=== PATIENT | male | born 1970 | race African-American/Black ===

== ENCOUNTER 2023-01-24 07:19 | Inpatient (IN) | payer OTHER, SELFPAY ==
[2023-01-24] VITALS (29 sets, daily range): BP systolic 113–204; BP diastolic 60–106; PULSE 77–91; RESP 10–20; TEMP 36.3–37; O2SAT 85–100
--- NOTE | ~2023-01-24 | XR_ITS ---
XR chest 1V portable DATE: 01/25/2023 05:39 INDICATION: Shortness of breath TECHNIQUE: Portable upright AP chest on 01/25/2023 at 0515 hours COMPARISON: 01/24/2022 portable AP chest at 0806 hours FINDINGS: Right internal jugular dual-lumen catheter tip is again noted overlying the superior vena c catherine near the cavoatrial junction. Cardiomegaly. There is pulmonary vascular redistribution suggesting mild pulmonary venous hypertensio n. The pulmonary interstitium and minor fissure. Less prominent since 01/24/2023 suggesting interval impr ovement of pulmonary interstitial and subpleural edema. Mild infiltrate or atelectasis is suggested in the lower lung zones, also improved. Prominent osteophytic change at the left glenohumeral joint. Osteopenia. IMPRESSION: Cardiomegaly, pulmonary vascular redistribution suggesting mild congestive change Diminished pulmonary interstitial and subpleural edema and diminished bibasilar infiltrate or atelect asis since 01/24/2023 Reviewed, dictated and finalized at location A. IMPRESSION: Cardiomegaly, pulmonary vascular redistribution suggesting mild con gestive change Diminished pulmonary interstitial and subpleural edema and diminished bibasilar infiltrate or atelectasis since 01/24/2023
--- NOTE | ~2023-01-24 | XR_ITS ---
XR chest 1V portable DATE: 01/24/2023 08:09 INDICATION: Shortness of breath. History of renal failure and diabetes. TECHNIQUE: Portable semiupright AP view on 01/24/2023 at 0806 hours COMPARISON: None FINDINGS: Right lower lobe and superior cavoatrial junction. Cardiomegaly. There is pulmonary vascular congestion. There is prominence of minor fissure consistent with subpleural edema. Saran B-lines are noted. Mild infiltrate or atelectasis in the lower lung zones primarily, greater on the left. Osteopenia. Prominent osteoarthritic change at the left glenohumeral joint. IMPRESSION: Cardiomegaly, congestive heart failure Bilateral pulmonary infiltrates, primarily lower lung zones, left greater than right which may be due to pulmonary edema, pneumonia or atelectasis Reviewed, dictated and finalized at location A.
--- NOTE | 2023-01-24 07:26 | ECG_ITS ---
Measurements Intervals [place] Rate: 82 P: 63 FL: 167 QRS: -33 QRSD: 99 T: 91 QT: 418 QTc: 489 Interpretive Statements SINUS RHYTHM LEFT AXIS DEVIATION [QRS AXIS < -30] NONSPECIFIC T-WAVE ABNORMALITY ABNORMAL ECG ABNORMAL QRS-T ANGLE [QRS-T AXIS DIFFERENCE > 60] NO PREVIOUS ECG AVAILABLE FOR COMPARISON Electronically Signed On 01-24-2023 9:17:46 CDT by Alok Mattson M.D.
[2023-01-24 07:41] LABS: Alveolar/Arterial O2 Gradient 107.3 mmHg; Base Excess ABG 6.6 mEq/l (+/-2.0); Carboxyhemoglobin 1.5 % THb (0-2.0); Fractional Inspired Oxygen 30 %; HCO3 ABG 31.9 mEq/l (22.0-26.0); Methemoglobin ABG 0.2 %THb (0-1.5); Oxygen Content ABG 13.8 %vol (16.0-22.0); PO2 FiO2 Ratio Arterial Blood 1.63 %; Reduced Hemoglobin 19.5 %THb (0-5.0); Total Hemoglobin 12.5 g/dL (12.0-18.0); pH ABG 7.432 (7.350-7.450)
[2023-01-24 07:45] LABS: Device NON-INVASIVE VENT; Modified Allen's Test Pass; Oxygen Saturation ABG 85.3 % (95.0-100.0); Oxyhemoglobin 78.8 % THb (90.0-100.0)
[2023-01-24 07:46] LABS: Non-Invasive Expiratory Pressure 7 CMH2O; Non-Invasive Inspiratory Pressure 14 CMH2O; Non-Invasive Vent Rate 4 /MIN; Site Drawn RIGHT RADIAL
[2023-01-24] MEDS: ALBUTEROL SULFATE NEB 2.5 MG/3 ML INH 5 MG INHALATION (07:53)
[2023-01-24 08:11] LABS: Basophils Absolute Auto 0.1 K/mm3 (0.0-0.1); Basophils Percent Auto 0.7 % (0.2-1.2); Eosinophils Absolute Auto 0.3 K/mm3 (0-0.3); Eosinophils Percent Auto 4.5 % (0-4.4); Hemoglobin 11.5 g/dL (14.0-18.0); Immature Granulocyte Absolute 0.03 K/mm3 (0.00-0.031); Immature Granulocyte Percent A 0.4 % (0-0.5); Lymphocytes Absolute Auto 1.15 K/mm3 (0.9-3.2); Lymphocytes Percent Auto 15.8 % (18.3-44.2); Mean Corpuscular HGB Conc 31.9 g/dl (32-36); Mean Corpuscular Hemoglobin 28.4 pg (26-34); Mean Corpuscular Volume 88.9 fl (80-100); Mean Platelet Volume 11.4 fl (7.4-10.4); Monocytes Absolute Auto 0.5 K/mm3 (0.1-0.6); Monocytes Percent Auto 7.1 % (2.6-8.5); Neutrophils Absolute Auto 5.2 K/mm3 (1.3-6.7); Neutrophils Percent Auto 71.5 % (45.5-73.1); Platelet Count Result 278 k/mm3 (150-375); Red Blood Count 4.05 M/mm3 (4.6-6.20); Red Cell Distribution Width 14.5 % (11.5-14.5); White Blood Count 7.3 K/mm3 (4.5-10.0)
[2023-01-24 08:19] LABS: Influenza A QL RT-PCR Negative (Negative); Influenza B QL RT-PCR Negative (Negative); RSV RNA, RT-PCR Negative (Negative); SARS-CoV-2 RNA PCR Negative (Negative)
--- NOTE | 2023-01-24 08:27 | ED.GENADULT ---
HPI - General Adult General Chief complaint: Shortness of Breath/Dyspnea Stated complaint: dyspnea History of Present Illness HPI narrative: 52-year-old male presented the emergency department for evaluation of worsening shortness of breath that started last night into the morning. Patient does have end-stage renal disease and does get dialysis on Tuesdays and Saturdays. Patient went to dialysis this morning and was transported to the emergency department for worsening shortness of breath. Patient denied any associated chest pain. Upon arrival patient was on 15 L and was transferred to [facility]. Related Data Allergies Allergy/AdvReac Type Severity Reaction Status Date / Time No Known Allergies Allergy Verified 01/24/23 07:35 Review of Systems Review of Systems: All systems reviewed & are unremarkable except as noted in HPI and below Exam Narrative: APPEARANCE: Well appearing, no pain, no distress, well-nourished. HEAD: normocephalic, atraumatic. EYES: PERRLA/EOMI, conjunctivae clear. NOSE: Normal no drainage EARS:TMS clear with good light reflex. THROAT: Pharynx clear, no exudate. NECK: Supple. No adenopathy, no masses. RESPIRATORY: Wheeze bilaterally and rhonchi in lower lobes bilaterally CARDIOVASCULAR: Regular rate and rhythm without murmurs rubs or gallops. ABDOMINAL: Soft, nontender, nondistended, normal bowel sounds MUSCULOSKELETAL: Swelling of the left arm which patient reports as being chronic NEURO: Alert. Cranial nerves II through XII intact. Good gait. Good coordination SKIN: Warm, dry. Normal Color Course Course Emergency Course: 52-year-old male with end-stage renal disease presented to the ED for evaluation of worsening shortness of breath. Patient was placed on BiPAP to help with his work of breathing. Patient was also treated with 5 mg of nebulized albuterol to help with wheeze. Patient was negative for COVID RSV and influenza. While on BiPAP patient states he does feel improved compared to arrival. Patient is afebrile with no leukocytosis. Patient's hemoglobin as similar to his baseline 11.5. Patient does have elevated creatinine of 6.8 with no known baseline. Patient has a potassium of 5.0. Patient follows with Dr. Ann, he is out of town so Dr. Casarez was consulted. Patient is chest x-ray did show pulmonary edema and pneumonia. Patient will be going to dialysis. Patient was started on antibiotics for possible pneumonia. In discussion with the hospitalist was decided to start the patient on Levaquin. Patient was accepted to the IMU by the hospitalist. Prior to going to the floor patient states he does feel improved. Vital Signs Vital signs: Vital Signs Temperature 97.6 F 01/24/23 07:21 Pulse Rate 83 01/24/23 07:21 Respiratory Rate 20 01/24/23 07:21 Blood Pressure 114/60 01/24/23 07:21 Pulse Oximetry 85 L 01/24/23 07:21 Oxygen Delivery Room Air 01/24/23 07:21 Temperature 97.6 F 01/24/23 07:21 Pulse Rate 77 01/24/23 12:00 Respiratory Rate 10 L 01/24/23 12:00 Blood Pressure 118/62 01/24/23 08:54 Pulse Oximetry 100 01/24/23 12:00 Oxygen Delivery BiPAP 01/24/23 12:00 Fraction of Inspired Oxygen 30 01/24/23 07:33 Medical Decision Making Differential Diagnosis Differential Diagnosis: Pulm edema, pneumonia, fluid overload, viral etiology Vital Signs Vital Signs: Vital Signs Temperature 97.6 F 01/24/23 07:21 Pulse Rate 83 01/24/23 07:21 Respiratory Rate 20 01/24/23 07:21 Blood Pressure 114/60 01/24/23 07:21 Pulse Oximetry 85 L 01/24/23 07:21 Oxygen Delivery Room Air 01/24/23 07:21 Temperature 97.6 F 01/24/23 07:21 Pulse Rate 77 01/24/23 12:00 Respiratory Rate 10 L 01/24/23 12:00 Blood Pressure 118/62 01/24/23 08:54 Pulse Oximetry 100 01/24/23 12:00 Oxygen Delivery BiPAP 01/24/23 12:00 Fraction of Inspired Oxygen 30 01/24/23 07:33 Lab Data Lab results reviewed: Yes I reviewed t
[2023-01-24 08:40] LABS: Alanine Aminotransferase 51 U/L (6-50); Albumin Level 4.4 g/dL (3.5-5.1); Alkaline Phosphatase 87 U/L (38-126); Anion Gap 11 mmol/L (8-16); Aspartate Amino Transferase 38 U/L (17-59); Bilirubin,Total 0.8 mg/dL (0.2-1.3); Blood Urea Nitrogen 65 mg/dL (9-20); Calcium 9.4 mg/dL (8.4-10.2); Carbon Dioxide 33 mmol/L (22-30); Chloride 93 mmol/L (98-107); Estimated Glomerular Filt Rate 10; Glucose 52 mg/dL (65-110); Sodium 137 mmol/L (137-145)
[2023-01-24] MEDS: DEXTROSE 10% 1,000 ML 100 ML IV CONT (08:58)
--- NOTE | 2023-01-24 10:52 | PC.NURSE ---
per dialysis nurse, hold on the ABT due to pt is going to take dialysis at any time now.
[2023-01-24 11:18] LABS: Glucose Point of Care 78 mg/dl (65-105)
--- NOTE | 2023-01-24 13:51 | ADMGEN ---
This patient, Clarence Morillo, was admitted to IMU Room 232-01 at 1350, patient in dialysis room 308 at this time. Patient/family oriented to hospital policies and general routines including ID bracelet, bed and alarms, visiting hours, pain management, procedures, bathroom and other care routines, personal items, smoking policy, room service/diet, and visiting hours. Information on how to activate the Rapid Response Team has been discussed. Patient/Family are encouraged to report perceived risks to care and to ask questions if they do not understand what they are told or what they should do.
--- NOTE | 2023-01-24 14:11 | PM.IMHP ---
H&P: HPI History of Present Illness Date/Time: 01/24/23 14:11 Chief Complaint: Shortness of breath Narrative: 52-year-old male presented the emergency department for evaluation of worsening shortness of breath that started last night into the morning.? Patient does have end-stage renal disease and does get dialysis on Tuesdays and Saturdays.?Patient went to dialysis this morning and was transported to the emergency department for worsening shortness of breath.? Patient denied any associated chest pain.? Upon arrival patient was on 15 L and was transferred to [facility]. She received nebulizer treatment. COVID RSV and influenza swab negative. Patient improved with BiPAP. ABG 7.43/49/49/31. On laboratory evaluation showed no leukocytosis. Potassium was 5.0. Chest x-ray showed pulmonary edema and pneumonia. Antibiotics were started for possible pneumonia. Nephrology been consulted for dialysis which will be done today. She was also noted to be hypoglycemic at 52 on presentation. EKG with sinus rhythm and nonspecific ST-T changes. Review of Systems Review of Systems: - CONSTITUTIONAL: Denies weight loss, fever and chills. - HEENT: Denies changes in vision and hearing - RESPIRATORY: Reports sOB and denies cough. - CV: Denies palpitations and CP. - GI: Denies abdominal pain, nausea, vomiting and diarrhea. - : Denies dysuria and urinary frequency. - MSK: Denies myalgia and joint pain. - SKIN: Denies rash and pruritus. - NEUROLOGICAL: Denies headache and syncope. - PSYCHIATRIC: Denies recent changes in mood. Denies anxiety and depression. Meds Home Medications and Allergies Home Medications Medication Instructions Recorded Confirmed Type acetaminophen 325 mg tablet 325 mg PO Q4H PRN Pain (Scale 01/24/23 01/24/23 History Score 1-3) amlodipine 10 mg tablet 10 mg PO DAILY 01/24/23 01/24/23 History apixaban 5 mg tablet (Eliquis) 5 mg PO Q12H 01/24/23 01/24/23 History atorvastatin 20 mg tablet (Lipitor) 20 mg PO DAILY 01/24/23 01/24/23 History calcium acetate(phosphat bind) 667 667 mg PO TID 01/24/23 01/24/23 History mg capsule chlorpromazine 25 mg tablet 25 mg PO TID 01/24/23 01/24/23 History clonidine HCl 0.2 mg tablet 0.2 mg PO TID PRN Hypertension 01/24/23 01/24/23 History clopidogrel 75 mg tablet 75 mg PO DAILY 01/24/23 01/24/23 History diphenhydramine HCl 25 mg tablet 25 mg PO TID 01/24/23 01/24/23 History docusate sodium 100 mg capsule 100 mg PO BID 01/24/23 01/24/23 History doxazosin 2 mg tablet 2 mg PO HS 01/24/23 01/24/23 History hydralazine 50 mg tablet 50 mg PO TID 01/24/23 01/24/23 History hydrocodone 7.5 mg-acetaminophen 1 tablet PO QID 01/24/23 01/24/23 History 325 mg tablet insulin glargine 100 unit/mL 8 unit subcut Q12H 01/24/23 01/24/23 History subcutaneous solution insulin lispro 100 unit/mL 5 unit subcut TIDWM 01/24/23 01/24/23 History subcutaneous solution (Humalog U-100 Insulin) isosorbide dinitrate 20 mg tablet 20 mg PO TID 01/24/23 01/24/23 History labetalol 200 mg tablet 200 mg PO Q12H 01/24/23 01/24/23 History levetiracetam 500 mg tablet 500 mg PO Q12H 01/24/23 01/24/23 History lidocaine 5 % topical patch 1 patch transdermal DAILY PRN Back 01/24/23 01/24/23 History Pain losartan 100 mg tablet 100 mg PO DAILY 01/24/23 01/24/23 History minoxidil 2.5 mg tablet 2.5 mg PO Q12H 01/24/23 01/24/23 History nitroglycerin 0.4 mg sublingual 0.4 mg sublingual Q5MIN PRN Chest 01/24/23 01/24/23 History tablet Pain ondansetron HCl 4 mg tablet 4 mg PO Q6H PRN Nausea And Vomiting 01/24/23 01/24/23 History pantoprazole 40 mg tablet,delayed 40 mg PO DAILY 01/24/23 01/24/23 History release polyethylene glycol 3350 17 17 g PO DAILY PRN Constipation 01/24/23 01/24/23 History gram/dose oral powder (Miralax) Allergies Allergy/AdvReac Type Severity Reaction Status Date / Time No Known Allergies Allergy Verified 01/24/23 07:35 Vital Signs Vital Signs - 24 hr
[2023-01-24 15:49] LABS: Hemoglobin A1C 5.6 % (<5.7)
[2023-01-24] MEDS: CALCIUM ACETATE 667 MG TABLET PO (17:05)
[2023-01-24] MEDS: ISOSORBIDE DINITRATE 20 MG TABLET PO (17:05)
[2023-01-24] MEDS: cloNIDine HCL 0.2 MG TABLET PO (17:05)
[2023-01-24] MEDS: hydrALAZINE HCL 50 MG TABLET PO (17:05)
[2023-01-24] MEDS: DOCUSATE SODIUM 100 MG CAPSULE PO (17:06)
[2023-01-24] MEDS: chlorproMAZINE HCL 25 MG TABLET PO (17:06)
[2023-01-24] MEDS: levoFLOXacin 750 MG/D5W 150 ML 750 MG/150 ML BAG 100 MG IVPB (17:07)
[2023-01-24 18:04] LABS: Hepatitis B Surface Antigen Negative (Negative)
[2023-01-24 18:28] LABS: Hepatitis B Surface Anti Res Indeterminate
[2023-01-24 18:34] LABS: Glucose Point of Care 83 mg/dl (65-105)
[2023-01-24 20:27] LABS: Glucose Point of Care 177 mg/dl (65-105)
[2023-01-24] MEDS: LABETALOL HCL 100 MG TABLET 200 MG PO (20:40)
[2023-01-24] MEDS: APIXABAN 5 MG TABLET PO (20:40)
[2023-01-24] MEDS: DOXAZOSIN MESYLATE 2 MG TABLET PO (20:40)
[2023-01-24] MEDS: levETIRAcetam 500 MG TABLET PO (20:42)
[2023-01-24] MEDS: minoxidiL 2.5 MG TABLET PO (20:42)
[2023-01-25] VITALS (17 sets, daily range): BP systolic 156–201; BP diastolic 65–93; PULSE 72–93; RESP 17–22; TEMP 36.1–36.8; O2SAT 96–100
[2023-01-25 04:35] LABS: Basophils Absolute Auto 0.1 K/mm3 (0.0-0.1); Basophils Percent Auto 0.9 % (0.2-1.2); Eosinophils Absolute Auto 0.2 K/mm3 (0-0.3); Eosinophils Percent Auto 3.8 % (0-4.4); Hemoglobin 11.2 g/dL (14.0-18.0); Immature Granulocyte Absolute 0.01 K/mm3 (0.00-0.031); Immature Granulocyte Percent A 0.2 % (0-0.5); Lymphocytes Absolute Auto 0.99 K/mm3 (0.9-3.2); Lymphocytes Percent Auto 18.1 % (18.3-44.2); Mean Corpuscular HGB Conc 31.1 g/dl (32-36); Mean Platelet Volume 11.1 fl (7.4-10.4); Monocytes Absolute Auto 0.6 K/mm3 (0.1-0.6); Monocytes Percent Auto 10.4 % (2.6-8.5); Neutrophils Absolute Auto 3.6 K/mm3 (1.3-6.7); Neutrophils Percent Auto 66.6 % (45.5-73.1); Platelet Count Result 252 k/mm3 (150-375); Red Cell Distribution Width 14.6 % (11.5-14.5); White Blood Count 5.5 K/mm3 (4.5-10.0)
[2023-01-25 04:59] LABS: Alanine Aminotransferase 39 U/L (6-50); Albumin Level 4.2 g/dL (3.5-5.1); Alkaline Phosphatase 86 U/L (38-126); Anion Gap 9 mmol/L (8-16); Aspartate Amino Transferase 31 U/L (17-59); Bilirubin,Total 0.9 mg/dL (0.2-1.3); Blood Urea Nitrogen 38 mg/dL (9-20); Calcium 9.1 mg/dL (8.4-10.2); Carbon Dioxide 33 mmol/L (22-30); Chloride 91 mmol/L (98-107); Estimated CRCL calculation 15 ml/min; Estimated Glomerular Filt Rate 16; Glucose 221 mg/dL (65-110); Magnesium 2.1 mg/dL (1.6-2.3); Potassium 4.4 mmol/L (3.4-5.0); Sodium 133 mmol/L (137-145)
[2023-01-25 07:45] LABS: Glucose Point of Care 208 mg/dl (65-105)
[2023-01-25] MEDS: CALCIUM ACETATE 667 MG TABLET PO ×3 (07:59→17:25)
[2023-01-25] MEDS: INSULIN ASPART (*BKC) 100 UNITS/ML SUB-Q ×4 (07:59→11:50)
[2023-01-25] MEDS: APIXABAN 5 MG TABLET PO ×2 (08:02→21:09)
[2023-01-25] MEDS: amLODIPine BESYLATE 5 MG TABLET 10 MG PO (08:02)
[2023-01-25] MEDS: PANTOPRAZOLE 40 MG TABLET PO (08:03)
[2023-01-25] MEDS: levETIRAcetam 500 MG TABLET PO ×2 (08:03→21:09)
[2023-01-25] MEDS: ISOSORBIDE DINITRATE 20 MG TABLET PO ×3 (08:04→17:27)
[2023-01-25] MEDS: minoxidiL 2.5 MG TABLET PO ×2 (08:04→21:09)
[2023-01-25] MEDS: hydrALAZINE HCL 50 MG TABLET PO (08:04)
[2023-01-25] MEDS: cloNIDine HCL 0.2 MG TABLET PO ×3 (08:05→17:25)
[2023-01-25] MEDS: CLOPIDOGREL BISULFATE 75 MG TABLET PO (08:05)
[2023-01-25] MEDS: DOCUSATE SODIUM 100 MG CAPSULE PO ×2 (08:05→17:25)
[2023-01-25] MEDS: ATORVASTATIN 20 MG TABLET PO (08:06)
[2023-01-25] MEDS: chlorproMAZINE HCL 25 MG TABLET PO ×3 (08:06→17:25)
[2023-01-25] MEDS: LABETALOL HCL 100 MG TABLET 200 MG PO ×2 (08:07→21:09)
[2023-01-25] MEDS: LOSARTAN POTASSIUM 100 MG TABLET PO (08:07)
--- NOTE | 2023-01-25 09:12 | PM.PNNEP ---
Progress Note: A&P Assessment and Plan (1) End stage renal disease: Code(s): N18.6 - End stage renal disease Status: Acute Assessment and Plan: the patient has end-stage renal disease. Gets dialysis on Tuesdays and Saturdays. He may have gained extra weight since last and this weight was removed yesterday and dialysis. He is feeling better. He probably has some volume overload remaining. Will do a dry ultrafiltration tomorrow to remove extra fluid. His potassium is okay. (2) Hypertension: Code(s): I10 - Essential (primary) hypertension Status: Acute Assessment and Plan: his blood pressure is very high. He is on amlodipine, clonidine, doxazosin, hydralazine, labetalol, losartan, and minoxidil. Will check renin and levels. Will increase minoxidil. He does have hydralazine and clonidine as p.r.n. meds. (3) Diabetes: Code(s): E11.9 - Type 2 diabetes mellitus without complications Status: Acute Assessment and Plan: management per hospitalist (4) Hyperlipidemia: Code(s): E78.5 - Hyperlipidemia, unspecified Status: Acute Assessment and Plan: on atorvastatin (5) Pulmonary edema: Code(s): J81.1 - Chronic pulmonary edema Status: Acute Assessment and Plan: fluid removed yesterday. Will try more fluid tomorrow. (6) Erythropoietin deficiency anemia: Code(s): D63.1 - Anemia in chronic kidney disease Status: Acute Assessment and Plan: Hemoglobin is doing well. He does not need EPO at this point (7) Left arm swelling: Code(s): M79.89 - Other specified soft tissue disorders Status: Acute Assessment and Plan: this is due to a venous constriction involving his dialysis access. This is being evaluated and managed by the Interventional doctors as an outpatient. He says that this is actually better than it had been before the last intervention. Subjective Date/time seen: 01/25/23 09:12 Interval history: Clarence is a very pleasant 52-year-old gentleman who has multiple medical problems including end-stage renal disease on dialysis Tuesdays and Saturdays, hypertension, diabetes, status post left [id number] amputation and right [id number] amputation, tobacco use but quit about 10 days ago, heart attack about 3 years ago with no recurrence, stroke with residual right-sided weakness, hyperlipidemia, GERD, among other issues. The patient went to dialysis on . He says he did pretty well. He did not get all of his fluid off. He says that he used to gain a lot of weight between treatments but lately has been better. Thursday he felt okay and then Thursday, yesterday he woke up short of breath. He went to dialysis because he just thought he needed fluid off. They assessed him in became worried because of the degree of the shortness of breath and so called an ambulance who brought him to [facility]. In the ER he was evaluated and found to have hypoxia requiring oxygen. he also had a BiPAP mask placed. He was able to get dialyzed soon after he got up to the floor. Lots of fluid was removed. He feels better today. he is still on some oxygen and has not required theBiPAP mask Since dialysis. He did not have any chest pain jaw pain or arm pain. Review of Systems Constitutional: Constitutional: Reports no additional constitutional complaints Eyes: Eyes: Reports no additional eye complaints ENT: Reports system reviewed and no additional complaints, except as documented Cardiovascular: Cardiovascular: Reports no additional cardiovascular complaints Respiratory: Respiratory: Reports no additional respiratory complaints Gastrointestinal: Gastrointestinal: Reports no additional gastrointestinal complaints Genitourinary: Genitourinary: Reports no additional male genitourinary complaints Musculoskeletal: Musculoskeletal: Reports
--- NOTE | 2023-01-25 10:09 | PM.IMPN ---
Progress Note: A&P Assessment and Plan (1) Community acquired pneumonia: Code(s): J18.9 - Pneumonia, unspecified organism Status: Acute (2) Pulmonary edema: Code(s): J81.1 - Chronic pulmonary edema Status: Acute (3) Hypoxia: Code(s): R09.02 - Hypoxemia Status: Acute Plan 52-year-old male presented the emergency department for evaluation of worsening shortness of breath that started last night into the morning.? Patient does have end-stage renal disease and does get dialysis on Tuesdays and Saturdays.?Patient went to dialysis this morning and was transported to the emergency department for worsening shortness of breath.? Patient denied any associated chest pain.? Upon arrival patient was on 15 L and was transferred to [facility]. She received nebulizer treatment. COVID RSV and influenza swab negative. Patient improved with BiPAP. ABG 7.43/49/49/31. On laboratory evaluation showed no leukocytosis. Potassium was 5.0. Chest x-ray showed pulmonary edema and pneumonia. Antibiotics were started for possible pneumonia. Nephrology been consulted for dialysis which will be done today. She was also noted to be hypoglycemic at 52 on presentation. EKG with sinus rhythm and nonspecific ST-T changes. 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 Resume home medications DVT prophylaxis with apixaban 01/25/2023: 52-year-old male presented the emergency department for evaluation of worsening shortness of breath that started last night into the morning.? Patient does have end-stage renal disease and does get dialysis on Tuesdays and Saturdays.?Patient went to dialysis this morning and was transported to the emergency department for worsening shortness of breath.? Patient denied any associated chest pain.? Upon arrival patient was on 15 L and was transferred to [facility]. She received nebulizer treatment. COVID RSV and influenza swab negative. Patient improved with BiPAP. ABG 7.43/49/49/31. On laboratory evaluation showed no leukocytosis. Potassium was 5.0. Chest x-ray showed pulmonary edema and pneumonia. Antibiotics were started for possible pneumonia. Nephrology been consulted for dialysis and was dialyzed urgently on 01/24/2023. She was also noted to be hypoglycemic at 52 on presentation. EKG with sinus rhythm and nonspecific ST-T changes. 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 Resume home medications Lantus was on hold. Will resume that today. Still volume overloaded nephrology planning to bleed dialyzed again in a.m.. Hypertension not controlled will place on hydralazine p.r.n. DVT prophylaxis with apixaban Subjective Date/time seen: 01/25/23 10:09 Interval history: Feeling better today. Used BiPAP last night. On oxygen 2 L via nasal cannula. Denies any chest pain. His blood pressure is all Review of Systems Review of Systems: All systems reviewed & are unremarkable except as noted in HPI and below Exam Narrative: APPEARANCE: Well appearing, no pain, no distress, well-nourished. On BiPAP HEAD: normocephalic, atraumatic. EYES: PERRLA/EOMI, conjunctivae clear. NOSE: Normal no drainage NECK: Supple. No adenopathy, no masses. RESPIRATORY: Wheeze bilaterally and rhonchi in lower lobes bilaterally CARDIOVASCULAR: Regular rate and rhythm without murmurs rubs or gallops. ABDOMINAL: Soft, nontender, nondistended, normal bowel sounds MUSCULOSKELETAL: Swelling of the left arm which patient reports as being chronic right AKA left BKA NEURO: Alert. Cranial nerves II through XII intact. Good gait. Good coordination SKIN: Warm, dry. Normal Color Objective Data Vital Signs Vital Signs: Vital Signs - 24 hr 01/24/23 10:29 01/24/23 11:01 01/24/23 12:00 [place]
[2023-01-25] MEDS: INSULIN GLARGINE (*BKC) 100 UNITS/ML 8 UNITS SUB-Q ×2 (11:46→21:07)
[2023-01-25 11:49] LABS: Glucose Point of Care 228 mg/dl (65-105)
[2023-01-25] MEDS: hydrALAZINE HCL 25 MG TABLET 75 MG PO ×2 (13:09→21:09)
[2023-01-25 15:50] LABS: Glucose Point of Care 67 mg/dl (65-105)
[2023-01-25 16:29] LABS: Glucose Point of Care 86 mg/dl (65-105)
--- NOTE | 2023-01-25 18:51 | PC.NURSE ---
This patient, Clarence Morillo, was received from U [facility] on 01/25/23 at 1851. Patient/family oriented to unit policies and routines
[2023-01-25] MEDS: DOXAZOSIN MESYLATE 2 MG TABLET PO (21:10)
[2023-01-25 21:20] LABS: Glucose Point of Care 155 mg/dl (65-105)
[2023-01-26] VITALS (24 sets, daily range): BP systolic 162–205; BP diastolic 74–97; PULSE 76–91; RESP 13–22; TEMP 36–37; O2SAT 93–100
[2023-01-26] MEDS: hydrALAZINE HCL 25 MG TABLET 75 MG PO (06:19)
[2023-01-26 08:16] LABS: Glucose Point of Care 145 mg/dl (65-105)
--- NOTE | 2023-01-26 08:40 | PC.NURSE ---
Pit Operator spoke with dialysis nurse and she wants functional tester typewriters to hold ALL of patients blood pressure medications and diuretic medications this AM.
[2023-01-26] MEDS: chlorproMAZINE HCL 25 MG TABLET PO ×2 (08:45→17:37)
[2023-01-26] MEDS: APIXABAN 5 MG TABLET PO ×2 (08:45→20:20)
[2023-01-26] MEDS: ATORVASTATIN 20 MG TABLET PO (08:45)
[2023-01-26] MEDS: CALCIUM ACETATE 667 MG TABLET PO ×2 (08:45→17:37)
[2023-01-26] MEDS: CLOPIDOGREL BISULFATE 75 MG TABLET PO (08:45)
[2023-01-26] MEDS: levETIRAcetam 500 MG TABLET PO ×2 (08:46→20:20)
[2023-01-26] MEDS: PANTOPRAZOLE 40 MG TABLET PO (08:46)
[2023-01-26] MEDS: DOCUSATE SODIUM 100 MG CAPSULE PO ×2 (08:47→17:37)
[2023-01-26] MEDS: INSULIN ASPART (*BKC) 100 UNITS/ML SUB-Q ×2 (08:49→17:38)
[2023-01-26] MEDS: INSULIN GLARGINE (*BKC) 100 UNITS/ML 8 UNITS SUB-Q ×2 (08:51→20:24)
--- NOTE | 2023-01-26 09:10 | PC.NURSE ---
Patient off of unit to dialysis
[2023-01-26 10:31] LABS: Basophils Absolute Auto 0.1 K/mm3 (0.0-0.1); Basophils Percent Auto 0.8 % (0.2-1.2); Eosinophils Absolute Auto 0.3 K/mm3 (0-0.3); Eosinophils Percent Auto 4.4 % (0-4.4); Hematocrit 32.9 % (42.0-52.0); Hemoglobin 10.5 g/dL (14.0-18.0); Immature Granulocyte Absolute 0.01 K/mm3 (0.00-0.031); Immature Granulocyte Percent A 0.2 % (0-0.5); Lymphocytes Absolute Auto 1.07 K/mm3 (0.9-3.2); Lymphocytes Percent Auto 17.3 % (18.3-44.2); Mean Corpuscular HGB Conc 31.9 g/dl (32-36); Mean Corpuscular Hemoglobin 28.7 pg (26-34); Mean Corpuscular Volume 89.9 fl (80-100); Mean Platelet Volume 11.1 fl (7.4-10.4); Monocytes Absolute Auto 0.7 K/mm3 (0.1-0.6); Monocytes Percent Auto 10.5 % (2.6-8.5); Neutrophils Absolute Auto 4.1 K/mm3 (1.3-6.7); Neutrophils Percent Auto 66.8 % (45.5-73.1); Platelet Count Result 261 k/mm3 (150-375); Red Blood Count 3.66 M/mm3 (4.6-6.20); Red Cell Distribution Width 14.8 % (11.5-14.5); White Blood Count 6.2 K/mm3 (4.5-10.0)
[2023-01-26 10:51] LABS: Alanine Aminotransferase 30 U/L (6-50); Albumin Level 3.9 g/dL (3.5-5.1); Alkaline Phosphatase 77 U/L (38-126); Anion Gap 10 mmol/L (8-16); Aspartate Amino Transferase 25 U/L (17-59); Bilirubin,Total 0.7 mg/dL (0.2-1.3); Blood Urea Nitrogen 55 mg/dL (9-20); Calcium 8.9 mg/dL (8.4-10.2); Carbon Dioxide 33 mmol/L (22-30); Chloride 91 mmol/L (98-107); Estimated CRCL calculation 10 ml/min; Estimated Glomerular Filt Rate 10; Glucose 145 mg/dL (65-110); Magnesium 2.1 mg/dL (1.6-2.3); Phosphorus 6.8 mg/dL (2.5-4.5); Potassium 4.3 mmol/L (3.4-5.0); Sodium 134 mmol/L (137-145)
--- NOTE | 2023-01-26 12:29 | PM.PNNEP ---
Progress Note: A&P Assessment and Plan (1) End stage renal disease: Code(s): N18.6 - End stage renal disease Status: Acute Assessment and Plan: the patient has end-stage renal disease. Gets dialysis on Tuesdays and Saturdays. He still has high blood pressure. Last chest x-ray still showed some fluid. He probably has some volume overload remaining. He is scheduled for ultrafiltration today and will do his regular dialysis tomorrow His potassium is okay. (2) Hypertension: Code(s): I10 - Essential (primary) hypertension Status: Acute Assessment and Plan: his blood pressure is very high. He is on amlodipine, clonidine, doxazosin, hydralazine, labetalol, losartan, and minoxidil. Will check renin and levels. Will increase minoxidil to 5 mg b.i.d.. He does have hydralazine and clonidine as p.r.n. meds. (3) Diabetes: Code(s): E11.9 - Type 2 diabetes mellitus without complications Status: Acute Assessment and Plan: management per hospitalist (4) Hyperlipidemia: Code(s): E78.5 - Hyperlipidemia, unspecified Status: Acute Assessment and Plan: on atorvastatin (5) Pulmonary edema: Code(s): J81.1 - Chronic pulmonary edema Status: Acute Assessment and Plan: fluid removed yesterday. Will try more fluid tomorrow. (6) Erythropoietin deficiency anemia: Code(s): D63.1 - Anemia in chronic kidney disease Status: Acute Assessment and Plan: Hemoglobin is doing well. He does not need EPO at this point (7) Left arm swelling: Code(s): M79.89 - Other specified soft tissue disorders Status: Acute Assessment and Plan: this is due to a venous constriction involving his dialysis access. This is being evaluated and managed by the Interventional doctors as an outpatient. He says that this is actually better than it had been before the last intervention. Subjective Date/time seen: 01/26/23 12:29 Interval history: Clarence is feeling a little better today. He still has very high blood pressure. He is still on some oxygen Review of Systems Constitutional: Constitutional: Reports no additional constitutional complaints Cardiovascular: Cardiovascular: Reports no additional cardiovascular complaints Respiratory: Respiratory: Reports no additional respiratory complaints Gastrointestinal: Gastrointestinal: Reports no additional gastrointestinal complaints Genitourinary: Genitourinary: Reports no additional male genitourinary complaints Exam Narrative: WDWN in NAD skin no rash head ncat lungs clear cor reg no rub abd BS+ nontender and soft ext no edema. he has a left below the knee amputation and a right [id number] amputation. Objective Data Vital Signs Vital Signs: Vital Signs - 24 hr 01/25/23 12:32 01/25/23 15:55 01/25/23 14:00 Temperature 97.4 F L 96.9 F L Pulse Rate 91 86 80 Respiratory Rate 22 H 20 Blood Pressure 167/67 H 174/76 H Pulse Oximetry 100 99 Oxygen Delivery Oxygen Flow Rate Fraction of Inspired Oxygen 01/25/23 16:00 01/25/23 20:00 01/25/23 21:09 Temperature 98.3 F Pulse Rate 85 86 80 Respiratory Rate 20 Blood Pressure 156/65 H Pulse Oximetry 100 Oxygen Delivery Oxygen Flow Rate Fraction of Inspired Oxygen 01/25/23 20:00 01/25/23 20:00 01/26/23 00:00 Temperature Pulse Rate 83 80 85 Respiratory Rate 20 Blood Pressure Pulse Oximetry 100 Oxygen Delivery Nasal Cannula Oxygen Flow Rate 1.5 Fraction of Inspired Oxygen 26 01/25/23 23:00 01/26/23 01:44 01/26/23 04:00 Temperature Pulse Rate 72 76 83 Respiratory Rate 17 13 Blood Pressure Pulse Oximetry 99 99 Oxygen Delivery BiPAP BiPAP Oxygen Flow Rate Fraction of Inspired Oxygen 01/26/23 06:00 01/26/23 08:45 01/26/23 09:46 Temperature 97.7 F 98.6 F Pulse Rate 84 86 Respiratory
[2023-01-26 17:22] LABS: Glucose Point of Care 154 mg/dl (65-105)
[2023-01-26] MEDS: ISOSORBIDE DINITRATE 20 MG TABLET PO (17:37)
[2023-01-26] MEDS: cloNIDine HCL 0.2 MG TABLET PO (17:37)
[2023-01-26] MEDS: levoFLOXacin 500 MG/D5W 100 ML 500 MG/100 ML BAG 66.67 MG IVPB (17:45)
[2023-01-26 20:20] LABS: Glucose Point of Care 220 mg/dl (65-105)
[2023-01-26] MEDS: DOXAZOSIN MESYLATE 2 MG TABLET PO (20:20)
[2023-01-26] MEDS: minoxidiL 2.5 MG TABLET 5 MG PO (20:20)
[2023-01-26] MEDS: LABETALOL HCL 100 MG TABLET 200 MG PO (20:20)
[2023-01-26] MEDS: hydrALAZINE HCL 50 MG TABLET 100 MG PO (20:20)
[2023-01-27] VITALS (25 sets, daily range): BP systolic 105–205; BP diastolic 54–98; PULSE 82–97; RESP 16–22; TEMP 36–36.9; O2SAT 90–100
[2023-01-27 03:37] LABS: Glucose Point of Care 57 mg/dl (65-105)
[2023-01-27 03:37] LABS: Glucose Point of Care 132 mg/dl (65-105)
[2023-01-27] MEDS: hydrALAZINE HCL 50 MG TABLET 100 MG PO ×3 (05:11→20:47)
[2023-01-27 08:24] LABS: Glucose Point of Care 60 mg/dl (65-105)
[2023-01-27] MEDS: APIXABAN 5 MG TABLET PO ×2 (08:43→20:46)
[2023-01-27] MEDS: cloNIDine HCL 0.2 MG TABLET PO ×2 (08:43→17:58)
[2023-01-27] MEDS: CALCIUM ACETATE 667 MG TABLET PO ×2 (08:43→17:58)
[2023-01-27] MEDS: LABETALOL HCL 100 MG TABLET 200 MG PO ×2 (08:43→20:46)
[2023-01-27] MEDS: CLOPIDOGREL BISULFATE 75 MG TABLET PO (08:43)
[2023-01-27] MEDS: ISOSORBIDE DINITRATE 20 MG TABLET PO ×2 (08:43→17:58)
[2023-01-27] MEDS: amLODIPine BESYLATE 5 MG TABLET 10 MG PO (08:43)
[2023-01-27] MEDS: ATORVASTATIN 20 MG TABLET PO (08:43)
[2023-01-27] MEDS: chlorproMAZINE HCL 25 MG TABLET PO ×2 (08:43→17:58)
[2023-01-27] MEDS: DOCUSATE SODIUM 100 MG CAPSULE PO ×2 (08:43→17:58)
[2023-01-27] MEDS: PANTOPRAZOLE 40 MG TABLET PO (08:44)
[2023-01-27] MEDS: LOSARTAN POTASSIUM 100 MG TABLET PO (08:44)
[2023-01-27] MEDS: minoxidiL 2.5 MG TABLET 5 MG PO ×2 (08:44→20:47)
[2023-01-27] MEDS: levETIRAcetam 500 MG TABLET PO ×2 (08:44→20:47)
[2023-01-27 09:06] LABS: Glucose Point of Care 111 mg/dl (65-105)
--- NOTE | 2023-01-27 09:13 | PC.NURSE ---
Patient off of unit to dialysis
[2023-01-27 10:07] LABS: Albumin Level 4.2 g/dL (3.5-5.1); Anion Gap 12 mmol/L (8-16); Blood Urea Nitrogen 71 mg/dL (9-20); Calcium 8.4 mg/dL (8.4-10.2); Carbon Dioxide 30 mmol/L (22-30); Chloride 90 mmol/L (98-107); Glucose 119 mg/dL (65-110); Phosphorus 7.9 mg/dL (2.5-4.5); Potassium 4.9 mmol/L (3.4-5.0); Sodium 132 mmol/L (137-145)
[2023-01-27 10:12] LABS: Estimated CRCL calculation 9 ml/min; Estimated Glomerular Filt Rate 9
[2023-01-27] MEDS: EPOETIN ALFA-EPBX 10,000 UNITS/ML VIAL 10000 UNITS IV PUSH (10:30)
--- NOTE | 2023-01-27 11:57 | PC.NURSE ---
Department Chairperson gave an update to [facility]
[2023-01-27 13:00] LABS: Glucose Point of Care 118 mg/dl (65-105)
--- NOTE | 2023-01-27 15:59 | WPDPN ---
Progress Note: A&P Assessment and Plan (1) Community acquired pneumonia: Code(s): J18.9 - Pneumonia, unspecified organism Status: Acute (2) Pulmonary edema: Code(s): J81.1 - Chronic pulmonary edema Status: Acute (3) Hypoxia: Code(s): R09.02 - Hypoxemia Status: Acute Plan 52-year-old male presented the emergency department for evaluation of worsening shortness of breath that started last night into the morning.? Patient does have end-stage renal disease and does get dialysis on Tuesdays and Saturdays.?Patient went to dialysis this morning and was transported to the emergency department for worsening shortness of breath.? Patient denied any associated chest pain.? Upon arrival patient was on 15 L and was transferred to [facility]. She received nebulizer treatment. COVID RSV and influenza swab negative. Patient improved with BiPAP. ABG 7.43/49/49/31. On laboratory evaluation showed no leukocytosis. Potassium was 5.0. Chest x-ray showed pulmonary edema and pneumonia. Antibiotics were started for possible pneumonia. Nephrology been consulted for dialysis which will be done today. She was also noted to be hypoglycemic at 53 on presentation. EKG with sinus rhythm and nonspecific ST-T changes. 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 Resume home medications DVT prophylaxis with apixaban 01/25/2023: 52-year-old male presented the emergency department for evaluation of worsening shortness of breath that started last night into the morning.? Patient does have end-stage renal disease and does get dialysis on Tuesdays and Saturdays.?Patient went to dialysis this morning and was transported to the emergency department for worsening shortness of breath.? Patient denied any associated chest pain.? Upon arrival patient was on 15 L and was transferred to [facility]. She received nebulizer treatment. COVID RSV and influenza swab negative. Patient improved with BiPAP. ABG 7.43/49/49/31. On laboratory evaluation showed no leukocytosis. Potassium was 5.0. Chest x-ray showed pulmonary edema and pneumonia. Antibiotics were started for possible pneumonia. Nephrology been consulted for dialysis and was dialyzed urgently on 01/24/2023. She was also noted to be hypoglycemic at 53 on presentation. EKG with sinus rhythm and nonspecific ST-T changes. 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 Resume home medications Lantus was on hold. Will resume that today. Still volume overloaded nephrology planning to bleed dialyzed again in a.m.. Hypertension not controlled will place on hydralazine p.r.n. DVT prophylaxis with apixaban 01/26/2023:52-year-old male presented the emergency department for evaluation of worsening shortness of breath that started last night into the morning.? Patient does have end-stage renal disease and does get dialysis on Tuesdays and Saturdays.?Patient went to dialysis this morning and was transported to the emergency department for worsening shortness of breath.? Patient denied any associated chest pain.? Upon arrival patient was on 15 L and was transferred to [facility]. She received nebulizer treatment. COVID RSV and influenza swab negative. Patient improved with BiPAP. ABG 7.43/49/49/31. On laboratory evaluation showed no leukocytosis. Potassium was 5.0. Chest x-ray showed pulmonary edema and pneumonia. Antibiotics were started for possible pneumonia which will be continued. Nephrology been consulted for dialysis and was dialyzed urgently on 01/24/2023. She was also noted to be hypoglycemic at 53 on presentation. EKG with sinus rhythm and nonspecific ST-T changes. Hypertension/hyperlipidemia/diabetes/seizure disorder/chronic anticoagulation/peripheral vascular di
[2023-01-27] MEDS: INSULIN ASPART (*BKC) 100 UNITS/ML SUB-Q ×2 (17:59)
--- NOTE | 2023-01-27 18:08 | PM.PNNEP ---
Progress Note: A&P Assessment and Plan (1) End stage renal disease: Code(s): N18.6 - End stage renal disease Status: Acute Assessment and Plan: the patient has end-stage renal disease. Gets dialysis on Tuesdays and Saturdays. blood pressure was better earlier today but was high again this afternoon. He had 3L removed today. His potassium is okay. (2) Hypertension: Code(s): I10 - Essential (primary) hypertension Status: Acute Assessment and Plan: his blood pressure is very high. He is on amlodipine, clonidine, doxazosin, hydralazine, labetalol, losartan, and minoxidil 5 b.i.d.. renin and levels are pending. (3) Diabetes: Code(s): E11.9 - Type 2 diabetes mellitus without complications Status: Acute Assessment and Plan: management per hospitalist (4) Hyperlipidemia: Code(s): E78.5 - Hyperlipidemia, unspecified Status: Acute Assessment and Plan: on atorvastatin (5) Pulmonary edema: Code(s): J81.1 - Chronic pulmonary edema Status: Acute Assessment and Plan: fluid removed yesterday. Will try more fluid tomorrow. (6) Erythropoietin deficiency anemia: Code(s): D63.1 - Anemia in chronic kidney disease Status: Acute Assessment and Plan: Hemoglobin is doing well. He does not need EPO at this point (7) Left arm swelling: Code(s): M79.89 - Other specified soft tissue disorders Status: Acute Assessment and Plan: this is due to a venous constriction involving his dialysis access. This is being evaluated and managed by the Interventional doctors as an outpatient. He says that this is actually better than it had been before the last intervention. Subjective Date/time seen: 01/27/23 18:08 Interval history: Clarence is feeling better. He had dialysis earlier today. He is breathing fine. He is still on 2L of oxygen. I asked the nurse to see if his O2 sat is okay on room air. Exam Narrative: WDWN in NAD skin no rash head ncat lungs clear Bilaterally cor reg no rub abd BS+ nontender and soft ext no edema. he has a left below the knee amputation and a right [id number] amputation. Objective Data Vital Signs Vital Signs: Vital Signs - 24 hr 01/26/23 19:38 01/26/23 20:20 01/26/23 20:00 Temperature 98.3 F Pulse Rate 89 82 91 Respiratory Rate 18 Blood Pressure 182/89 H Pulse Oximetry 100 Oxygen Delivery Oxygen Flow Rate Fraction of Inspired Oxygen 01/26/23 20:00 01/27/23 00:00 01/27/23 03:57 Temperature 97.9 F Pulse Rate 82 86 84 Respiratory Rate 18 16 Blood Pressure 177/78 H Pulse Oximetry 100 100 Oxygen Delivery Nasal Cannula Oxygen Flow Rate 1.5 Fraction of Inspired Oxygen 26 01/27/23 04:00 01/27/23 08:43 01/27/23 08:40 Temperature Pulse Rate 85 82 Respiratory Rate Blood Pressure 204/98 H Pulse Oximetry Oxygen Delivery Oxygen Flow Rate Fraction of Inspired Oxygen 01/27/23 09:14 01/27/23 09:25 01/27/23 09:25 Temperature 98.0 F Pulse Rate 85 85 Respiratory Rate 22 H Blood Pressure 205/93 H 156/74 H Pulse Oximetry 94 Oxygen Delivery Oxygen Flow Rate 2 Fraction of Inspired Oxygen 01/27/23 09:40 01/27/23 10:00 01/27/23 10:20 Temperature Pulse Rate 85 83 84 Respiratory Rate Blood Pressure 141/62 H 127/54 L 133/59 L Pulse Oximetry Oxygen Delivery Oxygen Flow Rate Fraction of Inspired Oxygen 01/27/23 10:40 01/27/23 11:00 01/27/23 08:40 Temperature Pulse Rate 84 83 Respiratory Rate Blood Pressure 137/55 L 105/55 L Pulse Oximetry 94 Oxygen Delivery Nasal Cannula Oxygen Flow Rate 1.5 Fraction of Inspired Oxygen 01/27/23 11:20 01/27/23 11:40 01/27/23 08:00 Temperature Pulse Rate 84 83 85 Respiratory Rate Blood Pressure 132/72 145/63 H Pulse Oximetry Oxygen De
[2023-01-27] MEDS: DOXAZOSIN MESYLATE 2 MG TABLET PO (20:46)
[2023-01-27] MEDS: INSULIN GLARGINE (*BKC) 100 UNITS/ML 8 UNITS SUB-Q (20:47)
[2023-01-27 21:08] LABS: Glucose Point of Care 195 mg/dl (65-105)
[2023-01-28] VITALS (12 sets, daily range): BP systolic 147–178; BP diastolic 64–71; PULSE 86–97; RESP 16–20; TEMP 36.6–37.2; O2SAT 92–100
[2023-01-28] MEDS: hydrALAZINE HCL 50 MG TABLET 100 MG PO ×3 (05:14→20:37)
[2023-01-28 07:44] LABS: Glucose Point of Care 69 mg/dl (65-105)
[2023-01-28 07:52] LABS: Albumin Level 4.5 g/dL (3.5-5.1); Anion Gap 10 mmol/L (8-16); Blood Urea Nitrogen 52 mg/dL (9-20); Calcium 9.4 mg/dL (8.4-10.2); Carbon Dioxide 32 mmol/L (22-30); Chloride 93 mmol/L (98-107); Estimated CRCL calculation 13 ml/min; Estimated Glomerular Filt Rate 13; Glucose 65 mg/dL (65-110); Phosphorus 6.4 mg/dL (2.5-4.5); Potassium 4.6 mmol/L (3.4-5.0); Sodium 135 mmol/L (137-145)
[2023-01-28] MEDS: minoxidiL 2.5 MG TABLET 5 MG PO ×2 (08:55→20:38)
[2023-01-28] MEDS: ISOSORBIDE DINITRATE 20 MG TABLET PO ×3 (08:56→17:03)
[2023-01-28] MEDS: DOCUSATE SODIUM 100 MG CAPSULE PO ×2 (08:56→17:03)
[2023-01-28] MEDS: cloNIDine HCL 0.2 MG TABLET PO ×3 (08:56→17:03)
[2023-01-28] MEDS: APIXABAN 5 MG TABLET PO ×2 (08:56→20:37)
[2023-01-28] MEDS: CLOPIDOGREL BISULFATE 75 MG TABLET PO (08:56)
[2023-01-28] MEDS: amLODIPine BESYLATE 5 MG TABLET 10 MG PO (08:56)
[2023-01-28] MEDS: CALCIUM ACETATE 667 MG TABLET PO ×3 (08:56→17:03)
[2023-01-28] MEDS: ATORVASTATIN 20 MG TABLET PO (08:56)
[2023-01-28] MEDS: chlorproMAZINE HCL 25 MG TABLET PO ×3 (08:56→17:03)
[2023-01-28] MEDS: LOSARTAN POTASSIUM 100 MG TABLET PO (08:56)
[2023-01-28] MEDS: PANTOPRAZOLE 40 MG TABLET PO (08:56)
[2023-01-28] MEDS: LABETALOL HCL 100 MG TABLET 200 MG PO ×2 (08:56→20:37)
[2023-01-28] MEDS: levETIRAcetam 500 MG TABLET PO ×2 (08:56→20:37)
[2023-01-28] MEDS: INSULIN GLARGINE (*BKC) 100 UNITS/ML 8 UNITS SUB-Q ×2 (09:53→20:39)
--- NOTE | 2023-01-28 11:48 | PCCCNOTE ---
On 01/28/23, the student, [Divine Bolaños], provided care and completed [facility] documentation on this patient. I have reviewed the student's documentation and agree with the findings.
[2023-01-28 11:55] LABS: Glucose Point of Care 191 mg/dl (65-105)
[2023-01-28] MEDS: INSULIN ASPART (*BKC) 100 UNITS/ML SUB-Q (13:33)
--- NOTE | 2023-01-28 14:18 | PM.PNNEP ---
Progress Note: A&P Assessment and Plan (1) End stage renal disease: Code(s): N18.6 - End stage renal disease Status: Chronic Assessment and Plan: HD tomorrow continue dialysis schedule of T/T/S follow electrolytes, volume status, and clearance (2) Hypoxia: Code(s): R09.02 - Hypoxemia Status: Acute Assessment and Plan: felt to be secondary to pulmonary edema possible pneumonia contributing as well continue fluid removal as tolerated follow oxygen saturations (3) Hypertension: Qualifiers: Hypertension type: primary hypertension Qualified Code(s): I10 - Essential (primary) hypertension Code(s): I10 - Essential (primary) hypertension Status: Acute Assessment and Plan: quite elevated on presenation doing better at this time on multiple medications (amlodpine, clonidine, doxazosin, hydralazine, losartan, and minoxidil) hopefully, ongoing fluid removal will help as well follow trend of hemodynamics (4) Left arm swelling: Code(s): M79.89 - Other specified soft tissue disorders Status: Chronic Assessment and Plan: chronic issues reportedly due to venous stenosis with his AV access ongoing management per Interventional Radiology as an outpatient continue supportive therapy (5) Anemia: Code(s): D64.9 - Anemia, unspecified Status: Chronic Assessment and Plan: due to ESRD Epogen with HD follow trend of H/H (6) Diabetes: Code(s): E11.9 - Type 2 diabetes mellitus without complications Status: Acute Assessment and Plan: follow accu-cheks glycemic control per hospitalists Will continue to follow. Subjective Date/time seen: 01/28/23 14:18 Interval history: Follow-up for end stage renal disease on hemodialysis. Chart reviewed -- assuming care from Dr. Casarez; tolerated dialysis yesterday and day before without any issue or problems; reports improvement in breathing/respiratory status; no apparent distress noted. Exam Narrative: General: WD/WN male in NAD Heart: normal S1 and S2; no rub Lungs: clear anteriorly; decreased at bases Abdomen: soft, nontender, nondistended, positive bowel sounds Extremities: no cyanosis or clubbing; no edema; s/p L BKA and R AKA Skin: warm and dry Objective Data Vital Signs Vital Signs: Vital Signs Temp Pulse Resp BP Pulse Ox O2 Del Method 01/28/23 14:00 88 01/28/23 12:00 86 01/28/23 08:00 89 01/28/23 14:04 97.9 F 95 16 166/64 H 92 01/28/23 08:00 Room Air 01/28/23 08:56 97 01/28/23 04:23 98.9 F 90 20 178/71 H 100 01/28/23 04:00 92 01/28/23 00:00 94 01/27/23 20:00 97 01/27/23 20:46 94 01/27/23 20:23 98.5 F 94 18 171/66 H 95 Intake/Output Intake/Output: Intake & Output 01/25/23 01/26/23 01/27/23 01/28/23 23:59 23:59 23:59 23:59 Intake Total 870 1204 1322 1620 Output Total 3000 1500 Balance 870 -1796 -178 1620 Meds/Results Medications: Active Medications Generic Name Dose Route Start Last Admin Trade Name Freq PRN Reason Stop Dose Admin Acetaminophen 325 mg 01/24/23 14:34 Acetaminophen 325 Mg Tablet PO Q4H PRN Pain (Scale Score 1-3) Hydrocodone Bitart/Acetaminophen 1 tab 01/24/23 15:38 Hydrocodone/Acetaminophen (*Crx) 7.5-325 Mg Tablet PO QID PRN Pain Rated 7-10 Amlodipine Besylate 10 mg 01/25/23 09:00 01/28/23 08:56 Amlodipine Besylate 5 Mg Tablet PO 10 mg DAILY AZALEA Administration Apixaban 5 mg 01/24/23 21:00 01/28/23 08:56 Apixaban 5 Mg Tablet PO 5 mg Q12HR AZALEA Administration Atorvastatin Calcium 20 mg 01/25/23 09:00 01/28/23 08:56 Atorvastatin 20 Mg Tablet PO 20 mg DAILY AZALEA Administration Calcium Acetate 667 mg 01/24/23 17:00 01/28/23 17:03 Calcium Acetate 667 Mg Tablet PO 667 mg TIDWM AZALEA Administration Chlor
--- NOTE | 2023-01-28 14:18 | P.PNNP_ITS ---
Progress Note: A&P Assessment and Plan (1) End stage renal disease: Code(s): N18.6 - End stage renal disease Status: Chronic Assessment and Plan: * HD tomorrow * continue dialysis schedule of T/T/S * follow electrolytes, volume status, and clearance (2) Hypoxia: Code(s): R09.02 - Hypoxemia Status: Acute Assessment and Plan: * felt to be secondary to pulmonary edema * possible pneumonia contributing as well * continue fluid removal as tolerated * follow oxygen saturations (3) Hypertension: Qualifiers: Hypertension type: primary hypertension Qualified Code(s): I10 - Essential (primary) hypertension Code(s): I10 - Essential (primary) hypertension Status: Acute Assessment and Plan: * quite elevated on presenation * doing better at this time * on multiple medications (amlodpine, clonidine, doxazosin, hydralazine, losartan, and minoxidil) * hopefully, ongoing fluid removal will help as well * follow trend of hemodynamics (4) Left arm swelling: Code(s): M79.89 - Other specified soft tissue disorders Status: Chronic Assessment and Plan: * chronic issues * reportedly due to venous stenosis with his AV access * ongoing management per Interventional Radiology as an outpatient * continue supportive therapy (5) Anemia: Code(s): D64.9 - Anemia, unspecified Status: Chronic Assessment and Plan: * due to ESRD * Epogen with HD * follow trend of H/H (6) Diabetes: Code(s): E11.9 - Type 2 diabetes mellitus without complications Status: Acute Assessment and Plan: * follow accu-cheks * glycemic control per hospitalists Will continue to follow. Subjective Date/time seen: 01/28/23 14:18 Interval history: Follow-up for end stage renal disease on hemodialysis. Chart reviewed -- assuming care from Dr. Casarez; tolerated dialysis yesterday and day before without any issue or problems; reports improvement in breathing/respiratory status; no apparent distress noted. Exam Narrative: General: WD/WN male in NAD Heart: normal S1 and S2; no rub Lungs: clear anteriorly; decreased at bases Abdomen: soft, nontender, nondistended, positive bowel sounds Extremities: no cyanosis or clubbing; no edema; s/p L BKA and R AKA Skin: warm and dry Objective Data Vital Signs Vital Signs: Vital Signs Temp Pulse Resp BP Pulse Ox O2 Del Method 01/28/23 14:00 88 01/28/23 12:00 86 01/28/23 08:00 89 01/28/23 14:04 97.9 F 95 16 166/64 H 92 01/28/23 08:00 Room Air 01/28/23 08:56 97 01/28/23 04:23 98.9 F 90 20 178/71 H 100 01/28/23 04:00 92 01/28/23 00:00 94 01/27/23 20:00 97 01/27/23 20:46 94 01/27/23 20:23 98.5 F 94 18 171/66 H 95 Intake/Output Intake/Output: Intake & Output 01/25/23 01/26/23 01/27/23 01/28/23 23:59 23:59 23:59 23:59 Intake Total 870 1204 1322 1620 Output Total 3000 1500 Balance 170 -8276 -007 1620 Meds/Results Medications: Active Medications Generic Name Dose Route Start Last Admin
[2023-01-28 16:32] LABS: Glucose Point of Care 72 mg/dl (65-105)
[2023-01-28] MEDS: levoFLOXacin 500 MG/D5W 100 ML 500 MG/100 ML BAG 66.67 MG IVPB (17:03)
[2023-01-28 19:21] LABS: Hepatitis B Core Ab Total Nonreactive (Nonreactive)
[2023-01-28] MEDS: DOXAZOSIN MESYLATE 2 MG TABLET PO (20:37)
[2023-01-28 21:33] LABS: Glucose Point of Care 191 mg/dl (65-105)
[2023-01-29] VITALS (25 sets, daily range): BP systolic 123–181; BP diastolic 47–79; PULSE 86–96; RESP 14–20; TEMP 36–36.9; O2SAT 93–100
[2023-01-29] MEDS: hydrALAZINE HCL 50 MG TABLET 100 MG PO ×2 (04:26→17:52)
[2023-01-29 07:56] LABS: Glucose Point of Care 94 mg/dl (65-105)
--- NOTE | 2023-01-29 08:39 | PC.NURSE ---
Pt seems to be overly lethargic this morning. orders for stat ABG's. Pt refused. Pt educated on the importance of testing and lab work to ensure the health and safety of patient. Pt still refusing. Will continue to monitor. Pt taken to dialysis shortly after refusal.
[2023-01-29] MEDS: EPOETIN ALFA-EPBX 10,000 UNITS/ML VIAL 10000 UNITS IV PUSH (11:16)
--- NOTE | 2023-01-29 11:30 | P.PNNP_ITS ---
Progress Note: A&P Assessment and Plan (1) End stage renal disease: Code(s): N18.6 - End stage renal disease Status: Chronic Assessment and Plan: * HD today * continue dialysis schedule of T/T/S * follow electrolytes, volume status, and clearance (2) Hypoxia: Code(s): R09.02 - Hypoxemia Status: Acute Assessment and Plan: * felt to be secondary to pulmonary edema * possible pneumonia contributing as well * continue fluid removal as tolerated * follow oxygen saturations (3) Hypertension: Qualifiers: Hypertension type: primary hypertension Qualified Code(s): I10 - Essential (primary) hypertension Code(s): I10 - Essential (primary) hypertension Status: Acute Assessment and Plan: * quite elevated on presenation * doing better at this time * on multiple medications (amlodpine, clonidine, doxazosin, hydralazine, losartan, and minoxidil) * hopefully, ongoing fluid removal will help as well * follow trend of hemodynamics (4) Left arm swelling: Code(s): M79.89 - Other specified soft tissue disorders Status: Chronic Assessment and Plan: * chronic issues * reportedly due to venous stenosis with his AV access * ongoing management per Interventional Radiology as an outpatient * continue supportive therapy (5) Anemia: Code(s): D64.9 - Anemia, unspecified Status: Chronic Assessment and Plan: * due to ESRD * Epogen with HD * follow trend of H/H (6) Diabetes: Code(s): E11.9 - Type 2 diabetes mellitus without complications Status: Acute Assessment and Plan: * follow accu-cheks * glycemic control per hospitalists Will continue to follow. Subjective Date/time seen: 01/29/23 11:30 Interval history: Follow-up for end stage renal disease on hemodialysis. Tolerating hemodialysis treatment at the time of my visit (seen on HD at ~ 11:20AM); breathing/respiratory status seems stable if not better at this time although he still reports on/off shortness of breath; no other issues/events overnight. Exam Narrative: General: WD/WN male in NAD Heart: normal S1 and S2; no rub Lungs: clear anteriorly; decreased at bases Abdomen: soft, nontender, nondistended, positive bowel sounds Extremities: no cyanosis or clubbing; no edema; s/p L BKA and R AKA Skin: warm and intact Objective Data Vital Signs Vital Signs: Vital Signs Temp Pulse Resp BP Pulse Ox O2 Del Method 01/29/23 11:20 94 140/64 01/29/23 11:00 95 151/71 H 01/29/23 10:40 95 123/57 L 01/29/23 10:20 94 126/47 L 01/29/23 10:00 93 127/71 01/29/23 08:00 Room Air 01/29/23 09:40 92 181/79 H 01/29/23 09:20 89 146/61 H 01/29/23 09:00 88 154/68 H 01/29/23 08:40 88 156/68 H 01/29/23 08:37 88 157/69 H 01/29/23 08:30 98.3 F 88 16 162/69 H 01/29/23 08:07 100 Room Air 01/29/23 08:03 98.1 F 86 18 153/67 H 96 01/29/23 04:00 93 01/29/23 04:14 98.2 F 96 20 163/75 H 100 01/28/23 21:43 97 Room Air 01/29/23 00:00 88 01/28/23 20:00 87 01/28/23 20:37 87 01/28/23 20:12 98.8 F 87 16 147/68 H 97
--- NOTE | 2023-01-29 11:30 | PM.PNNEP ---
Progress Note: A&P Assessment and Plan (1) End stage renal disease: Code(s): N18.6 - End stage renal disease Status: Chronic Assessment and Plan: HD today continue dialysis schedule of T/T/S follow electrolytes, volume status, and clearance (2) Hypoxia: Code(s): R09.02 - Hypoxemia Status: Acute Assessment and Plan: felt to be secondary to pulmonary edema possible pneumonia contributing as well continue fluid removal as tolerated follow oxygen saturations (3) Hypertension: Qualifiers: Hypertension type: primary hypertension Qualified Code(s): I10 - Essential (primary) hypertension Code(s): I10 - Essential (primary) hypertension Status: Acute Assessment and Plan: quite elevated on presenation doing better at this time on multiple medications (amlodpine, clonidine, doxazosin, hydralazine, losartan, and minoxidil) hopefully, ongoing fluid removal will help as well follow trend of hemodynamics (4) Left arm swelling: Code(s): M79.89 - Other specified soft tissue disorders Status: Chronic Assessment and Plan: chronic issues reportedly due to venous stenosis with his AV access ongoing management per Interventional Radiology as an outpatient continue supportive therapy (5) Anemia: Code(s): D64.9 - Anemia, unspecified Status: Chronic Assessment and Plan: due to ESRD Epogen with HD follow trend of H/H (6) Diabetes: Code(s): E11.9 - Type 2 diabetes mellitus without complications Status: Acute Assessment and Plan: follow accu-cheks glycemic control per hospitalists Will continue to follow. Subjective Date/time seen: 01/29/23 11:30 Interval history: Follow-up for end stage renal disease on hemodialysis. Tolerating hemodialysis treatment at the time of my visit (seen on HD at ~ 11:20AM); breathing/respiratory status seems stable if not better at this time although he still reports on/off shortness of breath; no other issues/events overnight. Exam Narrative: General: WD/WN male in NAD Heart: normal S1 and S2; no rub Lungs: clear anteriorly; decreased at bases Abdomen: soft, nontender, nondistended, positive bowel sounds Extremities: no cyanosis or clubbing; no edema; s/p L BKA and R AKA Skin: warm and intact Objective Data Vital Signs Vital Signs: Vital Signs Temp Pulse Resp BP Pulse Ox O2 Del Method 01/29/23 11:20 94 140/64 01/29/23 11:00 95 151/71 H 01/29/23 10:40 95 123/57 L 01/29/23 10:20 94 126/47 L 01/29/23 10:00 93 127/71 01/29/23 08:00 Room Air 01/29/23 09:40 92 181/79 H 01/29/23 09:20 89 146/61 H 01/29/23 09:00 88 154/68 H 01/29/23 08:40 88 156/68 H 01/29/23 08:37 88 157/69 H 01/29/23 08:30 98.3 F 88 16 162/69 H 01/29/23 08:07 100 Room Air 01/29/23 08:03 98.1 F 86 18 153/67 H 96 01/29/23 04:00 93 01/29/23 04:14 98.2 F 96 20 163/75 H 100 01/28/23 21:43 97 Room Air 01/29/23 00:00 88 01/28/23 20:00 87 01/28/23 20:37 87 01/28/23 20:12 98.8 F 87 16 147/68 H 97 01/28/23 16:00 88 01/28/23 14:04 97.9 F 95 16 166/64 H 92 Intake/Output Intake/Output: Intake & Output 01/26/23 01/27/23 01/28/23 01/29/23 23:59 23:59 23:59 23:59 Intake Total 1204 1322 1620 560 Output Total 3000 1500 Balance -1796 -178 1620 560 Meds/Results Medications: Active Medications Generic Name Dose Route Start Last Admin Trade Name Freq PRN Reason Stop Dose Admin Acetaminophen 325 mg 01/24/23 14:34 Acetaminophen 325 Mg Tablet PO Q4H PRN Pain (Scale Score 1-3) Hydrocodone Bitart/Acetaminophen 1 tab 01/24/23 15:38 Hydrocodone/Acetaminophen (*Crx) 7.5-325 Mg Tablet PO QID PRN Pain Rated 7-10 Amlodipine Besylate 10 mg 01/25/23 09:00 01/29/23
[2023-01-29 12:17] LABS: Glucose Point of Care 143 mg/dl (65-105)
[2023-01-29] MEDS: levETIRAcetam 500 MG TABLET PO (12:22)
[2023-01-29] MEDS: LOSARTAN POTASSIUM 100 MG TABLET PO (12:22)
[2023-01-29] MEDS: CALCIUM ACETATE 667 MG TABLET PO ×2 (12:22→17:52)
[2023-01-29] MEDS: PANTOPRAZOLE 40 MG TABLET PO (12:22)
[2023-01-29] MEDS: ATORVASTATIN 20 MG TABLET PO (12:23)
[2023-01-29] MEDS: CLOPIDOGREL BISULFATE 75 MG TABLET PO (12:23)
[2023-01-29] MEDS: DOCUSATE SODIUM 100 MG CAPSULE PO ×2 (12:23→17:52)
[2023-01-29] MEDS: amLODIPine BESYLATE 5 MG TABLET 10 MG PO (12:23)
[2023-01-29] MEDS: APIXABAN 5 MG TABLET PO (12:23)
[2023-01-29] MEDS: minoxidiL 2.5 MG TABLET 5 MG PO (12:23)
[2023-01-29] MEDS: ISOSORBIDE DINITRATE 20 MG TABLET PO ×2 (12:24→17:53)
[2023-01-29] MEDS: cloNIDine HCL 0.2 MG TABLET PO ×2 (12:24→17:53)
[2023-01-29] MEDS: chlorproMAZINE HCL 25 MG TABLET PO ×2 (12:24→17:52)
[2023-01-29] MEDS: LABETALOL HCL 100 MG TABLET 200 MG PO (12:24)
--- NOTE | 2023-01-29 13:32 | PM.DS ---
DS: Admitting Diagnosis Discharge Date 01/29/2023 Admitting Diagnosis Short of breath DS: Discharge Diagnosis Discharge Diagnosis (1) Community acquired pneumonia: Code(s): J18.9 - Pneumonia, unspecified organism Status: Acute (2) Pulmonary edema: Code(s): J81.1 - Chronic pulmonary edema Status: Acute (3) Hypoxia: Code(s): R09.02 - Hypoxemia Status: Acute Plan 52-year-old male presented the emergency department for evaluation of worsening shortness of breath that started last night into the morning.? Patient does have end-stage renal disease and does get dialysis on Tuesdays and Saturdays.?Patient went to dialysis this morning and was transported to the emergency department for worsening shortness of breath.? Patient denied any associated chest pain.? Upon arrival patient was on 15 L and was transferred to [facility]. She received nebulizer treatment. COVID RSV and influenza swab negative. Patient improved with BiPAP. ABG 7.43/49/49/31. On laboratory evaluation showed no leukocytosis. Potassium was 5.0. Chest x-ray showed pulmonary edema and pneumonia. Antibiotics were started for possible pneumonia. Nephrology been consulted for dialysis which will be done today. She was also noted to be hypoglycemic at 53 on presentation. EKG with sinus rhythm and nonspecific ST-T changes. 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 Resume home medications DVT prophylaxis with apixaban 01/25/2023: 52-year-old male presented the emergency department for evaluation of worsening shortness of breath that started last night into the morning.? Patient does have end-stage renal disease and does get dialysis on Tuesdays and Saturdays.?Patient went to dialysis this morning and was transported to the emergency department for worsening shortness of breath.? Patient denied any associated chest pain.? Upon arrival patient was on 15 L and was transferred to [facility]. She received nebulizer treatment. COVID RSV and influenza swab negative. Patient improved with BiPAP. ABG 7.43/49/49/31. On laboratory evaluation showed no leukocytosis. Potassium was 5.0. Chest x-ray showed pulmonary edema and pneumonia. Antibiotics were started for possible pneumonia. Nephrology been consulted for dialysis and was dialyzed urgently on 01/24/2023. She was also noted to be hypoglycemic at 53 on presentation. EKG with sinus rhythm and nonspecific ST-T changes. 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 Resume home medications Lantus was on hold. Will resume that today. Still volume overloaded nephrology planning to bleed dialyzed again in a.m.. Hypertension not controlled will place on hydralazine p.r.n. DVT prophylaxis with apixaban 01/26/2023:52-year-old male presented the emergency department for evaluation of worsening shortness of breath that started last night into the morning.? Patient does have end-stage renal disease and does get dialysis on Tuesdays and Saturdays.?Patient went to dialysis this morning and was transported to the emergency department for worsening shortness of breath.? Patient denied any associated chest pain.? Upon arrival patient was on 15 L and was transferred to [facility]. She received nebulizer treatment. COVID RSV and influenza swab negative. Patient improved with BiPAP. ABG 7.43/49/49/31. On laboratory evaluation showed no leukocytosis. Potassium was 5.0. Chest x-ray showed pulmonary edema and pneumonia. Antibiotics were started for possible pneumonia which will be continued. Nephrology been consulted for dialysis and was dialyzed urgently on 01/24/2023. She was also noted to be hypoglycemic at 53 on presentation. EKG with sinus rhythm and nonspecific ST-T changes. H
[2023-01-29 13:58] LABS: Glucose Point of Care 213 mg/dl (65-105)
[2023-01-29 17:19] LABS: Glucose Point of Care 272 mg/dl (65-105)
[2023-01-29] MEDS: INSULIN ASPART (*BKC) 100 UNITS/ML SUB-Q ×2 (18:02→18:03)
--- NOTE | 2023-01-29 19:29 | PC.NURSE ---
Patient is being picked up by EMS, to be taken Enroute to SNF. Patient belongings and discharge packet provided. Nurse to nurse report given during day shift.
[2023-02-04 07:29] LABS: Hepatitis Be Antibody Nonreactive
[2023-02-07 14:05] LABS: Hepatitis Be Antigen Nonreactive
== END 2023-01-29 19:40 | DRG 139 ==
LOC: ANHED 08:26 → ANHIMU 10:54 → ANH3MED 01-27 09:45 → ANHIMU 01-30 15:46
PROVIDERS: Internal Medicine Nephrology; Student in an Organized Health Care Education/Training Program; Admitting Provider Internal Medicine; Emergency Provider Emergency Medicine; PCP Internal Medicine; Visit Provider Family Medicine
DX: J18.9 Pneumonia, unspecified organism (principal); J81.1 Chronic pulmonary edema; E11.22 Type 2 diabetes mellitus with diabetic chronic kidney disease; E11.649 Type 2 diabetes mellitus with hypoglycemia without coma; E66.01 Morbid (severe) obesity due to excess calories; I12.0 Hypertensive chronic kidney disease with stage 5 chronic kidney disease or end stage renal disease; N18.6 End stage renal disease; R09.02 Hypoxemia; E78.5 Hyperlipidemia, unspecified; G40.909 Epilepsy, unspecified, not intractable, without status epilepticus; I73.9 Peripheral vascular disease, unspecified; Z68.36 Body mass index [BMI] 36.0-36.9, adult; Z79.01 Long term (current) use of anticoagulants; Z89.512 Acquired absence of left leg below knee; Z89.611 Acquired absence of right leg above knee; Z99.2 Dependence on renal dialysis
CPT/HCPCS: 36415; 36600; 71045; 80053; 80069; 82088; 82375; 82805; 82948; 83036; 83050; 83735; 84100; 84244; 85025; 86704; 86706; 86707; 87040; 87340; 87350; 87637; 93005; 94002; 94640; 96374; 99285; A9270; G0257; G0378; G0379; J1644; J1815; J1956; J7030; Q5105

== ENCOUNTER 2023-11-24 00:39 | Inpatient (IN) | payer OTHER, SELFPAY ==
[2023-11-24] VITALS (53 sets, daily range): BP systolic 108–243; BP diastolic 51–137; PULSE 72–124; RESP 5–35; TEMP 36.4–38.1; O2SAT 96–100; BMI 29.5
--- NOTE | ~2023-11-24 | XR_ITS ---
Portable chest x-ray Comparison: None Clinical History: Dialysis port Findings: Right-sided central venous line is in satisfactory position. Lungs are clear, without foca l consolidation or pleural effusion. Cardiomediastinal silhouette is stable. Bones and soft tissues are unremarkable. Impression: Clear lungs. Support line in place. Reviewed, dictated and finalized at location . Impression: Clear lungs. Support line in place.
--- NOTE | ~2023-11-24 | US_ITS ---
EXAMINATION: US venous doppler UE DATE: 11/26/2023 14:16 INDICATION: Bilateral upper limb swelling TECHNIQUE: Grayscale images without and with compression and Doppler images of the bilateral upper ex tremity veins were obtained. COMPARISON: None. FINDINGS: Occlusive thrombus filling the right internal jugular vein with no discernible vascular flow on color Doppler. The right subclavian vein, axillary vein, brachial vein, basilic vein, cephalic vein, radia l vein, and ulnar vein are patent. Incidentally noted is a 2.4 x 1.7 x 1.1 cm hypoechoic right axilla ry mass potentially an enlarged lymph node with no discernible central fatty hilum. Mild bicipital te nosynovitis at the intertubercular groove of the proximal right humerus. There is additional occlusive thrombus filling the left internal jugular vein with no discernible vas cular flow on color Doppler. The left subclavian vein, axillary vein, brachial vein, basilic vein, ce phalic vein, radial vein, and ulnar vein are patent. There is an additional 3.4 x 3.4 x 3.0 cm mass a t the left axilla. Moderate bicipital tenosynovitis at the intertubercular groove of the proximal lef t humerus. 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 IMPRESSION: 1. Occlusive thrombosis of the bilateral internal jugular veins. 2. Patent bilateral upper extremity veins. No evidence of venous thrombosis. 3. Hypoechoic masses at the bilateral axilla measuring up to 2.4 cm on the right and 3.4 cm on the le ft. This is suspicious for bilateral axillary lymphadenopathy is concerning for lymphoma or metastati c disease. 4. 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 Reviewed, dictated and finalized at location A. IMPRESSION: 1. Occlusive thrombosis of the bilateral internal jugular veins. 2. Patent bilateral upper extremity veins. No evidence of venous thrombosis. 3. Hypoechoic masses at the bilateral axilla measuring up to 2.4 cm on the righ t and 3.4 cm on the left. This is suspicious for bilateral axillary lymphadenop athy is concerning for lymphoma or metastatic disease. 4. 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
--- NOTE | ~2023-11-24 | CT_ITS ---
EXAMINATION: CTA BRAIN/CAROTID DATE: 11/24/2023 09:23 INDICATION: Possible stroke with altered mental status TECHNIQUE: Computed tomographic angiography (CTA) of the head and neck was performed with 300 mL Omni paque-350 intravenous contrast. Multiplanar reconstructions and maximum intensity projection 3D-recon structions of the carotid arteries and of the intracranial arteries were created by the technologist on a separate workstation. Automated exposure control and iterative reconstruction technique were emp loyed.The dose-length product was 1719.91 mGy-cm. The patient is to be dialyzed following the procedu re. COMPARISON: Head CT dated 11/24/2023 FINDINGS: There is recurrent infiltration of the injected contrast bolus with no evident contrast on any of the 3 sequences. There is also a large amount of patient motion on one of the series of images. The abse nce of intravenous contrast precludes assessment for patency of the vessels. There is subcutaneous sw elling and surrounding edema at the posterior base of the neck. This surrounds multiple small loculat ed subcutaneous fluid collections, the 4 largest measuring between 1.8 cm and 2.8 cm in maximal diame ters which are suspicious for abscesses. There is a tunneled right internal jugular central venous ca theter with distal tip in the caudal superior vena cava. There is additional soft tissue edema and mu ltiple chest wall collaterals at the left axilla and anterior left chest wall which suggests possibil ity of occlusion or significant stenosis of the veins draining the left upper extremity. There is a 2 .1 x 1.9 cm anterior mediastinal mass. Mild emphysema in the visualized upper lungs. IMPRESSION: 1. Nondiagnostic study for assessment of patency of the vessels due to recurrent contrast infiltratio n. Patient is to be dialyzed following the procedure. 2. Multiple small loculated centimeters fluid collection at the posterior base of the neck with surro unding inflammatory stranding which suggests these represent abscesses. 3. Indeterminate 2.1 x 1.9 cm anterior mediastinal mass for which differential would include enlarged lymph nodes which could be reactive, metastatic or due to lymphoma, thymoma or teratoma. 4. Subcutaneous edema at the left axilla with multiple collateral vessels at the axilla and anterior left chest wall which suggests possibility of occlusion or stenosis of some of the veins draining the left upper extremity. Reviewed, dictated and finalized at location A. IMPRESSION: 1. Nondiagnostic study for assessment of patency of the vessels due to recurren t contrast infiltration. Patient is to be dialyzed following the procedure. 2. Multiple small loculated centimeters fluid collection at the posterior base of the neck with surrounding inflammatory stranding which suggests these repres ent abscesses. 3. Indeterminate 2.1 x 1.9 cm anterior mediastinal mass for which differential would include enlarged lymph nodes which could be reactive, metastatic or due t o lymphoma, thymoma or teratoma. 4. Subcutaneous edema at the left axilla with multiple collateral vessels at th e axilla and anterior left chest wall which suggests possibility of occlusion o r stenosis of some of the veins draining the left upper extremity.
--- NOTE | ~2023-11-24 | CT_ITS ---
EXAMINATION: CT chest abdomen pelvis wo con DATE: 11/27/2023 18:20 INDICATION: Lymphoma. TECHNIQUE: Computed tomography (CT) of the chest, abdomen, and pelvis was performed without intraveno us contrast. Automated exposure control and iterative reconstruction technique were employed. The dos e-length product was 1445.43 mGy-cm. COMPARISON: None FINDINGS: CHEST CT: The lungs demonstrate mild atelectasis. No pleural effusion. There is a right internal jugular centra l venous catheter tip in right atrium. Cardiomegaly is noted. There are coronary artery calcification s. No pericardial effusion. There is mild left supraclavicular lymphadenopathy. There is mild left ax illary lymphadenopathy. The largest node measures 2.3 x 1.5 cm. There is a vascular stent in left upp er arm. There are vascular grafts in left upper limb. There is a 1.9 cm subcutaneous mass in right up per arm, likely a sebaceous cyst. There is volume loss of T3 and T4 vertebral bodies. There is interb brown fusion at T3-T4. There is moderate thoracic spondylosis. ABDOMEN/PELVIS CT: The liver, gallbladder, spleen, pancreas, and adrenal glands are normal. There is cortical thinning o f the kidneys. There are widespread vascular calcifications. Stool distends the rectum. There is dive rticulosis of the colon without evidence of diverticulitis. The appendix is normal. There are no dila panfilo loops of bowel. There are no pathologically enlarged lymph nodes. There is no free intraperitonea l fluid. There is mild lumbar spondylosis. IMPRESSION: 1. Mild left axillary and left supraclavicular lymphadenopathy, which may be reactive lymphadenopathy or less likely lymphoma. 2. 1.9 cm subcutaneous mass in right upper arm, likely a sebaceous cyst. Reviewed, dictated and finalized at location E. IMPRESSION: 1. Mild left axillary and left supraclavicular lymphadenopathy, which may be re active lymphadenopathy or less likely lymphoma. 2. 1.9 cm subcutaneous mass in right upper arm, likely a sebaceous cyst.
--- NOTE | ~2023-11-24 | MR_ITS ---
EXAMINATION: MR brain/brain stem wo con DATE: 11/28/2023 14:49 INDICATION: seizure disorder TECHNIQUE: Magnetic resonance imaging (MRI) of the brain and brainstem was performed without intraven ous contrast. Sequences included sagittal and axial T1-weighted SE, axial diffusion-weighted FS EPI A SSET, axial T2*-weighted GRE, axial T2-weighted FLAIR Propeller, and axial T2-weighted Propeller. Pos tcontrast axial and coronal T1-weighted SE was obtained. Apparent diffusion coefficient (ADC) maps we re created. COMPARISON: CT brain and CTA brain carotid 11/24/2023. FINDINGS: Artifact obscures anatomical structures in the left frontal and to a lesser extent right frontal lobe s. No abnormal restricted diffusion to suggest acute ischemic infarct. Right frontal lobe encephaloma lacia. No MRI evidence of hemorrhage or extra-axial collection. 7 mm hypointense GRE focus in the rig ht insular white matter, no correlate in the remaining sequences, likely focus of old hemorrhage. Amber roximately 6 additional scattered, punctate low GRE signal intensity foci, likely represent small deepali rohemorrhages. Moderate patchy white matter hyperintensity, likely representing moderate small vessel ischemic disease. Mild generalized parenchymal volume loss. The basilar cisterns are patent. Flow vo ids are preserved. Right lens replacement. Right mastoid fluid. Right maxillary retention cyst/polyp. Multiple subcutaneous fluid intensity lesions in the left frontal scalp, lower bilateral face, and u pper neck. IMPRESSION: No acute intracranial process detected. Multiple scalp, face, and upper neck subcutaneous cysts. Prior CTA findings suggestive of surrounding inflammatory changes as can be seen with infected/inflamed cyst or abscess. Correlate clinically. Reviewed, dictated and finalized at location K. IMPRESSION: No acute intracranial process detected. Multiple scalp, face, and upper neck subcutaneous cysts. Prior CTA findings sug gestive of surrounding inflammatory changes as can be seen with infected/inflam ed cyst or abscess. Correlate clinically.
--- NOTE | ~2023-11-24 | US_ITS ---
EXAMINATION: US venous doppler UE DATE: 11/29/2023 14:00 INDICATION: Deep vein thrombosis involving the bilateral internal jugular veins. TECHNIQUE: Grayscale ultrasound images without and with compression and Doppler ultrasound images of the bilateral upper extremity veins were obtained. COMPARISON: ultrasound 11/26/23 FINDINGS: The visualized portions of the right subclavian vein, axillary vein, brachial veins, basilic vein, ce phalic vein, radial vein, and ulnar vein are patent. There is thrombus in right internal jugular vein . The visualized portions of the left subclavian vein, axillary vein, brachial veins, basilic vein, cep halic vein, radial vein, and ulnar vein are patent. There is thrombus in left internal jugular vein. Again seen is an aneurysm versus pseudoaneurysm associated with the left brachial artery. IMPRESSION: 1. Deep vein thrombosis involving the bilateral internal jugular veins. 2. 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 Reviewed, dictated and finalized at location E. IMPRESSION: 1. Deep vein thrombosis involving the bilateral internal jugular veins. 2. 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
--- NOTE | ~2023-11-24 | CT_ITS ---
CT ANGIOGRAM NECK AND HEAD History: CVA. Technique: Serial spiral axial images through the head and neck were obtained during arterial phase I V injection of 100 cc of Omnipaque 350. 3-D postprocessing and MIP images were then reconstructed on the remote workstation. Dose reduction technique was used on this scan by utilizing automated exposur e control and iterative reconstruction technique. The dose-length product (DLP) was 1168.05 mGy-cm. CTA neck findings: Bilateral vertebral arteries are patent. Bilateral common carotid, internal carot id, and external carotid arteries are patent. No large vessel occlusion. No stenosis or aneurysm. The proximal right internal carotid artery demonstrates 0% stenosis relative to the normal distal artery lumen diameter. The proximal left internal carotid artery demonstrates 0% stenosis relative to the n ormal distal artery lumen diameter. CTA head findings: Distal internal carotid arteries, middle cerebral arteries, and anterior cerebral arteries are patent. Distal vertebral arteries, basilar artery, and posterior cerebral arteries are p atent. There are moderate stenoses in the bilateral cavernous portions of the distal internal carotid arteries related to atherosclerotic calcifications. Impression: No large vessel occlusion or critical stenosis. Moderate stenoses in the cavernous portions of the di stal internal carotid arteries related to atherosclerotic ossifications. Reviewed, dictated and finalized at location M. Impression: No large vessel occlusion or critical stenosis. Moderate stenoses in the cavern ous portions of the distal internal carotid arteries related to atherosclerotic ossifications.
--- NOTE | ~2023-11-24 | CT_ITS ---
CT head without contrast Indication: Altered mental status Technique: Serial scans were obtained through the brain without the administration of contrast. Dose reduction technique was used on this scan by utilizing automated exposure control and iterative recon struction technique. The dose-length product (DLP) was 681.00 mGy-cm. Findings: There is no evidence of intracranial hemorrhage, mass lesion, or acute infarct. Chronic rig ht frontal lobe infarct noted. The ventricles and subarachnoid spaces are dilated, consistent with mi ld atrophy. Low attenuation regions are seen within the periventricular white matter bilaterally, li rocael representing changes from chronic microvascular ischemic disease. There is no evidence of edema, mass effect or midline shift. Right maxillary sinus disease noted. The remaining visualized paranas al sinuses and mastoid air cells are clear. Several small apparent lipomas are present in the posteri or occipital region/neck. Impression: No intracranial hemorrhage, mass, or acute infarct. Chronic right frontal lobe infarct. Atrophy and chronic white matter changes, as above. Reviewed, dictated and finalized at location . Impression: No intracranial hemorrhage, mass, or acute infarct. Chronic right frontal lobe infarct. Atrophy and chronic white matter changes, as above.
--- NOTE | 2023-11-24 00:44 | ECG_ITS ---
SEE SCANNED COPY FOR CONFIRMED REPORT MTDD
--- NOTE | 2023-11-24 00:55 | ED.GENADULT ---
HPI - General Adult General Chief complaint: Unspecified <Danielle Barros PA-C - Last Filed: 11/24/23 03:47> Stated complaint: PULLING AT HIS CHEST PORT FOR HD <Danielle Barros PA-C - Last Filed: 11/24/23 03:47> Time Seen by Provider: 11/24/23 00:39 <Danielle Barros PA-C - Last Filed: 11/24/23 03:47> History of Present Illness HPI narrative: 53-year-old male with history of type 2 diabetes, hyperlipidemia, CVA, CHF, epilepsy, anemia, AR, bilateral BKA, ESRD on hemodialysis presents to emergency department via EMS from [facility] for altered mental status. Per EMS, the patient was transported due to concerns that his hemodialysis chest port was dislodged given the patient has been pulling on it. Upon arrival, the patient is very agitated, unable to allow staff to examine him. He is repeatedly saying ?okay okay okay?. He is unable to tell me his name. I called longterm staff he states patient is normally A&O x3 at baseline. Around 10:30 p.m. he became altered and ?totally off?. States he began pulling on his port and repeating words. Patient is unable to provide any history. Per longterm staff, he has not been coughing, denies congestion or known fevers. They do state he has been intermittently being treated for UTI for the past month. He has been eating and drinking okay, reported bathroom normally. They do endorse he is a full code. He is on a dialysis schedule. <Danielle Barros PA-C - Last Filed: 11/24/23 03:47> Related Data Home medications: Home Medications Medication Instructions Recorded Confirmed acetaminophen 325 mg tablet 325 mg PO Q4H PRN Pain (Scale 01/24/23 11/24/23 Score 1-3) apixaban 5 mg tablet (Eliquis) 5 mg PO Q12H 01/24/23 11/24/23 atorvastatin 20 mg tablet (Lipitor) 20 mg PO HS 01/24/23 11/24/23 calcium acetate(phosphat bind) 667 667 mg PO TID 01/24/23 11/24/23 mg capsule clonidine HCl 0.2 mg tablet 0.2 mg PO TID PRN Hypertension 01/24/23 11/24/23 clopidogrel 75 mg tablet 75 mg PO DAILY 01/24/23 11/24/23 doxazosin 2 mg tablet 2 mg PO HS 01/24/23 11/24/23 hydralazine 50 mg tablet 50 mg PO TID 01/24/23 11/24/23 isosorbide dinitrate 20 mg tablet 20 mg PO TID 01/24/23 11/24/23 levetiracetam 500 mg tablet 500 mg PO Q12H 01/24/23 11/24/23 losartan 100 mg tablet 100 mg PO DAILY 01/24/23 11/24/23 minoxidil 2.5 mg tablet 2.5 mg PO Q12H 01/24/23 11/24/23 nitroglycerin 0.4 mg sublingual 0.4 mg sublingual Q5MIN PRN Chest 01/24/23 11/24/23 tablet Pain ondansetron HCl 4 mg tablet 4 mg PO Q6H PRN Nausea And Vomiting 01/24/23 11/24/23 pantoprazole 40 mg tablet,delayed 40 mg PO DAILY 01/24/23 11/24/23 release polyethylene glycol 3350 17 17 g PO DAILY PRN Constipation 01/24/23 11/24/23 gram/dose oral powder (Miralax) bupropion HCl 150 mg tablet,12 hr 150 mg PO BID 11/24/23 11/24/23 sustained-release calcitriol 0.25 mcg capsule 0.25 mcg PO 3XW 11/24/23 11/24/23 cephalexin 250 mg capsule 250 mg PO BID 11/24/23 11/24/23 doxycycline monohydrate 100 mg 100 mg PO BID 11/24/23 11/24/23 capsule labetalol 300 mg tablet 300 mg PO BID 11/24/23 11/24/23 lorazepam 0.5 mg tablet 0.5 mg PO BID PRN Anxiety 11/24/23 11/24/23 nifedipine 90 mg tablet,extended 90 mg PO DAILY 11/24/23 11/24/23 release trazodone 50 mg tablet 50 mg PO HS 11/24/23 11/24/23 <Danielle Barros PA-C - Last Filed: 11/24/23 03:47> Allergies/adverse reactions: Allergies Allergy/AdvReac Type Severity Reaction Status Date / Time No Known Allergies Allergy Verified 01/24/23 07:35 <Danielle Barros PA-C - Last Filed: 11/24/23 03:47> Review of Systems Review of Systems: ROS unobtainable: Yes unobtainable due to mental status <Danielle Barros PA-C - Last Filed: 11/24/23 03:47> [facility] Past Medical History Medical History: Medical History Anemia in chronic kidney disease Cerebrovascular accident Ch
[2023-11-24] MEDS: LORazepam INJ (*CRX) 2 MG/ML VIAL IM (01:03)
[2023-11-24 02:54] LABS: Basophils Absolute Auto 0.1 K/mm3 (0.0-0.1); Basophils Percent Auto 0.8 % (0.2-1.2); Eosinophils Absolute Auto 0.3 K/mm3 (0-0.3); Hematocrit 37.2 % (42.0-52.0); Hemoglobin 11.7 g/dL (14.0-18.0); Immature Granulocyte Absolute 0.02 K/mm3 (0.00-0.031); Immature Granulocyte Percent A 0.3 % (0-0.5); Lymphocytes Absolute Auto 0.88 K/mm3 (0.9-3.2); Lymphocytes Percent Auto 13.7 % (18.3-44.2); Mean Corpuscular HGB Conc 31.5 g/dl (32-36); Mean Corpuscular Hemoglobin 28.7 pg (26-34); Mean Corpuscular Volume 91.2 fl (80-100); Mean Platelet Volume 12.2 fl (7.4-10.4); Monocytes Absolute Auto 0.7 K/mm3 (0.1-0.6); Monocytes Percent Auto 11.2 % (2.6-8.5); Neutrophils Absolute Auto 4.5 K/mm3 (1.3-6.7); Platelet Count Result 253 k/mm3 (150-375); Red Blood Count 4.08 M/mm3 (4.6-6.20); Red Cell Distribution Width 13.8 % (11.5-14.5); White Blood Count 6.4 K/mm3 (4.5-10.0)
[2023-11-24 03:06] LABS: Prothrombin Time 13.7 Seconds (11.1-14.7)
[2023-11-24 03:11] LABS: Lactic Acid Reflex 1.5 mmol/L (0.7-2.0)
[2023-11-24 03:17] LABS: Alanine Aminotransferase 14 U/L (6-50); Alkaline Phosphatase 58 U/L (38-126); Anion Gap 13 mmol/L (4-12); Aspartate Amino Transferase 36 U/L (17-59); Bilirubin,Total 1.1 mg/dL (0.2-1.3); Blood Urea Nitrogen 38 mg/dL (9-20); Calcium 10.7 mg/dL (8.4-10.2); Carbon Dioxide 28 mmol/L (22-30); Chloride 98 mmol/L (98-107); Creatine Kinase 194 U/L (55-170); Estimated CRCL calculation 9 ml/min; Estimated Glomerular Filt Rate 8; Glucose 83 mg/dL (65-110); Lipase 44 U/L (23-300); Magnesium 2.4 mg/dL (1.6-2.3); Phosphorus 4.8 mg/dL (2.5-4.5); Potassium 4.4 mmol/L (3.4-5.0); Sodium 139 mmol/L (137-145)
[2023-11-24 03:28] LABS: Partial Thromboplastin Time 23.2 Seconds (22.3-36.8)
[2023-11-24 03:30] LABS: Influenza A QL RT-PCR Negative (Negative); Influenza B QL RT-PCR Negative (Negative); RSV RNA, RT-PCR Negative (Negative); SARS-CoV-2 RNA PCR Negative (Negative)
[2023-11-24 03:31] LABS: Troponin I 0.049 ng/mL (0.000-0.034)
[2023-11-24] MEDS: LORazepam INJ (*CRX) 2 MG/ML VIAL 1 MG IV PUSH ×3 (06:51→14:22)
[2023-11-24 06:55] LABS: Troponin I 0.043 ng/mL (0.000-0.034)
[2023-11-24] MEDS: ASPIRIN 300 MG SUPPOSITORY RECTAL (08:55)
--- NOTE | 2023-11-24 09:40 | PC.NURSE ---
To CT again and SLN to LUE flushed prior to contrast but infiltrated when contrast injected
[2023-11-24 11:22] LABS: Appearance Urine Turbid (Clear); Bacteria Urine None Seen /hpf; Bilirubin Urine Negative (Negative); Blood Urine 2+ (Negative); Color Urine Yellow (Yellow); Glucose Urine UA Trace mg/dL (Negative); Ketones Urine Trace mg/dL (Negative); Leukocyte Esterase Ur Trace LEU/UL (Negative); Need Manual Microscopic Reviewed; Nitrate Urine Negative (Negative); Protein Urine 3+ mg/dL (Negative); RBC Urine 51-100 /hpf (0-2); Specific Grav Ur 1.011 (1.001-1.035); Squamous Epithelial Cell Urine Few /hpf (Few); Urobilinogen Urine 0.2 mg/dL (<2.0); pH Urine 8.5 (5.0-9.0)
[2023-11-24 11:25] LABS: Add Urine Microscopic? YES
[2023-11-24 11:29] LABS: Troponin I 0.041 ng/mL (0.000-0.034)
[2023-11-24 11:54] LABS: Hepatitis B Surface Antigen Negative (Negative)
[2023-11-24] MEDS: SODIUM CHLORIDE 0.9% IV 1,000 ML 999 ML IV CONT (12:32)
[2023-11-24 13:21] LABS: Hepatitis B Surface Anti Res Indeterminate
[2023-11-24] MEDS: HEPARIN SODIUM 1,000 UNITS/ML VIAL 2000 UNITS IV PUSH (14:35)
[2023-11-24] MEDS: HEPARIN SODIUM 1,000 UNITS/ML VIAL 1000 UNITS IV PUSH ×4 (14:39→17:47)
--- NOTE | 2023-11-24 15:07 | ADMGEN ---
This patient, Clarence Morillo, was admitted to [facility] IMU-1. Patient/family oriented to hospital policies and general routines including ID bracelet, bed and alarms, visiting hours, pain management, procedures, bathroom and other care routines, personal items, smoking policy, room service/diet, and visiting hours. Information on how to activate the Rapid Response Team has been discussed. Patient/Family are encouraged to report perceived risks to care and to ask questions if they do not understand what they are told or what they should do.
--- NOTE | 2023-11-24 16:01 | PM.IMHP ---
H&P: HPI History of Present Illness Date/Time: 11/24/23 17:00 Chief Complaint: Irritation at dialysis port and increasing confusion. Narrative: This is a 53-year-old male with history of stroke, epilepsy, end-stage renal disease on hemodialysis, hypertension, hyperlipidemia, anemia, type 2 diabetes mellitus, gastroesophageal reflux disease, and depression who presented to the emergency department for evaluation of irritation at his dialysis port and increasing confusion. He is not able to provide an accurate history and a majority the following is obtained via a review of his EMR. I was unable to reach his spouse by phone. At baseline he is reportedly alert and oriented x1 however he has been increasingly confused, restless, and agitated since last evening. This morning he was sent in as staff at his nursing facility were concerned that he pulled out his hemodialysis catheter as he has been messing with it frequently the last several days. The patient has no voiced complaints but he is altered and unable to hold an appropriate conversation at this time. Looking through the paperwork which accompanies him, he was started on Keflex and bacitracin for wounds at the base of the posterior neck sometime last week. There have been no reports of fever, coughing, congestion, vomiting, or diarrhea. Of note I was told that the patient was seen at [facility] 2 times in the last 1 week for increasing hallucinations but his workup was reportedly unremarkable and he was [facility]. In the ED: He was afebrile on arrival. Blood pressures have ranged from the 120s to low 200s systolic. Labs were significant for a WBC count of 6.4, hemoglobin 11.7, BUN 38, creatinine 8.30, calcium 10.7, phosphorus 4.8, total CK 194, troponin 0.049. He tested negative for influenza, RSV, and COVID. Brain CT and chest x-ray were without acute findings. CT of the head and neck showed no large vessel occlusion or critical stenosis. Also noted were multiple, small loculated fluid collections at the posterior base of the neck with some inflammatory stranding suggesting abscesses (suspicious for hidradenitis on exam), 2.1 x 1.9 cm anterior mediastinal mass with a differential to include enlarged lymph nodes (reactive, metastatic, or lymphoma), thymoma, or teratoma, and subcutaneous edema at the left axilla with multiple collateral vessels suggesting possibility of occlusion or stenosis of veins draining the left upper extremity. He received several doses of lorazepam in the ED for agitation and a dose of IV clindamycin for the suspected hidradenitis and he is being admitted in this setting for further evaluation. Review of Systems Review of Systems: Unable to obtain accurately given clinical condition. [facility] Past Medical History Medical History (Updated 11/24/23 @ 20:57 by Patricia Jensen PA-C) Anemia in chronic kidney disease Cerebrovascular accident Chronic anticoagulation Depression End-stage renal disease on hemodialysis Epilepsy Gastroesophageal reflux disease Hyperlipidemia Hypertension Peripheral vascular disease Type 2 diabetes mellitus Surgical History Surgical History (Updated 11/24/23 @ 16:14 by Patricia Jensen PA-C) History of left below knee amputation History of right above knee amputation Family History Family History Other Unknown family medical history Social History Social History (Updated 11/24/23 @ 16:15 by Patricia Jensen PA-C) Social History: Surrogate medical decision maker: Landy Becerra, spouse. Code status: Full code. Smoking status: Unknown if ever smoked Alcohol intake: unknown Substance use: unknown Lack of Transportation: No Lack of Food: Never True Current Housing: I Have Housing Concerned About Future Housing: No Difficulty Paying Gas/Electric Bills: No Difficulty Paying for Meds: No Currently Unemploy
--- NOTE | 2023-11-24 16:33 | PM.CNNEP ---
Assessment and Plan Assessment and plan (1) End stage renal disease: Code(s): N18.6 - End stage renal disease Status: Chronic Assessment and Plan: HD today continue T/T/S schedule while hosptialized follow electrolytes, volume status, and clearance (2) Altered mental status: Code(s): R41.82 - Altered mental status, unspecified Status: Acute Assessment and Plan: as noted since admission etiology not clear CT of brain did not show any acute findings MRI of brain ordered to r/o CVA/stroke follow mental status (3) Abscess of skin of neck: Code(s): L02.11 - Cutaneous abscess of neck Status: Acute Assessment and Plan: as noted on exam several cystic lesions localized to his posterior neck one of these lesions is open and draining follow culture data on IV antibiotics General Surgery and wound care consulted (4) Hypertension: Qualifiers: Hypertension type: primary hypertension Qualified Code(s): I10 - Essential (primary) hypertension Code(s): I10 - Essential (primary) hypertension Status: Chronic Assessment and Plan: quite elevated however, agitation may be playing a role resume home medications follow trend of hemodynamics (5) Anemia: Code(s): D64.9 - Anemia, unspecified Status: Chronic Assessment and Plan: due to ESRD Epogen with HD once BP better follow trend of H/H (6) Type 2 diabetes mellitus: Code(s): E11.9 - Type 2 diabetes mellitus without complications Status: Chronic Assessment and Plan: follow accu-cheks glycemic control per hospitalists I will continue to follow the patient with you while he remains hospitalized and make further recommendations as deemed necessary. Thank you for allowing me to participate in the care of this patient. History of Present Illness Reason for Consult Consult date: 11/24/23 Reason for consult: end stage renal disease Chief Complaint Chief complaint: Altered Mental Status/CVA/Encephalopathy/Abscesses History of Present Illness Narrative: All the information I have obtained is from review of the electronic medical record as well as discussion with the physician / nurses involved in the patient's care as well as discussion with his outpatient dialysis unit as the patient is unable to provide any history due to his altered mental status. The patient is a 53-year-old male with a past medical history as outlined below who presented to [facility] Emergency Room from his nursing facility due to increasing confusion. At baseline, he is usually alert oriented times 2 - 3 but apparently he has been increasingly confused, restless, and agitated since yesterday evening. This morning, the nursing staff at his facility was concerned that due to his confusion he had been grabbing at his dialysis catheter more and more frequently to the point where they were concerned that he may have dislodged it. The only other history that I have is that he was recently started on oral antibiotics for wounds at the base of his neck sometime last week although I am unclear if he had any specific complaints regarding these wounds. His detention paperwork does report that he was seen at [facility] ER for issues related to hallucinations but it would seem that no clear etiology was found and he was discharged back to his nursing facility. Due to his altered mentation, his nursing facility sent him to the emergency room for further assessment. Workup and evaluation emergency room demonstrated the patient be quite hypertensive although his blood pressure was fluctuating anywhere from 120s to 200 systolic but he was otherwise afebrile. Routine blood test demonstrated a normal CBC and his chemistry demonstrated labs consistent with his known history of end-stage renal disease. He tested negative for influenza, RSV
[2023-11-24 16:55] LABS: Procalcitonin 0.9 ng/mL
[2023-11-24 17:37] LABS: CRP 5.8 mg/dL (<1.0)
[2023-11-24 17:40] LABS: Glucose Point of Care 88 mg/dl (65-105)
[2023-11-24] MEDS: HEPARIN SODIUM 1,000 UNITS/ML VIAL 6000 UNITS IV PUSH (18:29)
--- NOTE | 2023-11-24 19:01 | ADMGEN ---
This patient, Clarence Morillo, was admitted to IMU Room 231-01 @ 9900. Patient/family oriented to hospital policies and general routines including ID bracelet, bed and alarms, visiting hours, pain management, procedures, bathroom and other care routines, personal items, smoking policy, room service/diet, and visiting hours. Information on how to activate the Rapid Response Team has been discussed. Patient/Family are encouraged to report perceived risks to care and to ask questions if they do not understand what they are told or what they should do.
[2023-11-24 20:15] LABS: MRSA (PCR) NOT DETECTED (NOT DETECTE)
[2023-11-24] MEDS: hydrALAZINE HCL 20 MG/ML VIAL 10 MG IV PUSH (21:28)
--- NOTE | 2023-11-24 21:43 | PC.NURSE ---
Attempted to reach pt's spouse, Landy Becerra [phone]. Unable to leave a message. Left message for pt's sister, Gwen [phone], to call IMU. Attempting to reach family for permission to receive medical records from [facility]. Awaiting return call.
[2023-11-24 21:47] LABS: Hemoglobin A1C 4.2 % (<5.7)
[2023-11-24] MEDS: CLINDAMYCIN 300 MG in DEXTROSE 5% IN WATER 50 ML 104 MG IVPB ×2 (21:56→23:53)
--- NOTE | 2023-11-24 22:01 | PC.NURSE ---
Clindamycin administered at 2156 r/t patient being a difficult blood draw for blood cultures.
[2023-11-25] VITALS (20 sets, daily range): BP systolic 155–232; BP diastolic 70–104; PULSE 83–113; RESP 12–20; TEMP 35.9–36.8; O2SAT 92–100; BMI 27.3
[2023-11-25 04:30] LABS: Hematocrit 37.2 % (42.0-52.0); Hemoglobin 11.7 g/dL (14.0-18.0); Mean Corpuscular HGB Conc 31.5 g/dl (32-36); Mean Corpuscular Hemoglobin 28.7 pg (26-34); Mean Corpuscular Volume 91.4 fl (80-100); Mean Platelet Volume 10.6 fl (7.4-10.4); Platelet Count Result 244 k/mm3 (150-375); Red Blood Count 4.07 M/mm3 (4.6-6.20); Red Cell Distribution Width 14.2 % (11.5-14.5); White Blood Count 7.4 K/mm3 (4.5-10.0)
[2023-11-25 04:42] LABS: Ammonia < 9 umol/L (9-30)
[2023-11-25 04:43] LABS: Anion Gap 15 mmol/L (4-12); Blood Urea Nitrogen 19 mg/dL (9-20); Calcium 10.3 mg/dL (8.4-10.2); Carbon Dioxide 22 mmol/L (22-30); Chloride 106 mmol/L (98-107); Estimated CRCL calculation 11 ml/min; Estimated Glomerular Filt Rate 12; Glucose 74 mg/dL (65-110); Magnesium 2.4 mg/dL (1.6-2.3); Potassium 4.1 mmol/L (3.4-5.0); Sodium 143 mmol/L (137-145)
[2023-11-25] MEDS: CLINDAMYCIN 300 MG in DEXTROSE 5% IN WATER 50 ML 104 MG IVPB ×3 (06:13→16:54)
[2023-11-25 08:52] LABS: Glucose Point of Care 68 mg/dl (65-105)
--- NOTE | 2023-11-25 10:53 | WPDNEURCNPN ---
Assessment and Plan Assessment and plan (1) Chronic anticoagulation: Code(s): Z79.01 - manager intermediate (current) use of anticoagulants Status: Acute (2) Epilepsy: Code(s): G40.909 - Epilepsy, unspecified, not intractable, without status epilepticus Status: Acute (3) Anemia in chronic kidney disease: Code(s): N18.9 - Chronic kidney disease, unspecified; D63.1 - Anemia in chronic kidney disease Status: Acute (4) Depression: Code(s): F32.A - Depression, unspecified Status: Acute (5) Peripheral vascular disease: Code(s): I73.9 - Peripheral vascular disease, unspecified Status: Acute (6) End-stage renal disease on hemodialysis: Code(s): N18.6 - End stage renal disease; Z99.2 - Dependence on renal dialysis Status: Acute (7) Encephalopathy: Code(s): G93.40 - Encephalopathy, unspecified Status: Acute Plan end-stage renal disease with with metabolic encephalopathy secondary to underlying chronic recurrent medical problems as outlined. One could consider the possibility of the seizure patient is already on Keppra, considering the possibility of sepsis spinal fluid studies could be considered but patient is on apixaban and clopidogrel which will be contraindicated be covered with the broad-spectrum antibiotics at this particular time, considering acute changes in mental status possibility of seizures is likely patient is already on Keppra 500mg q.12 hours could be increased but considering her renal status we can go up to 750 q.12 hours in if clinically noted to have seizures you could use the valproic acid. Consult date: 11/25/23 HPI: Clarence Morillo is a 53 year old maleFitted to the hospital through the emergency room for the extreme agitation. Patient was brought to the emergency room by the EMS from [facility] and with the information that he has been pulling on his hemodialysis chest port and probably it was dislodged. On arrival was extremely agitated he was unable to tell his name and was saying okay and okay as per the report from retirement usually he is awake alert oriented x3 at baseline he became altered at 10:30 p.m. he started pulling on his port and repeating words as per the information available from the retirement there was no history of any recent generalized symptomatology though he was treated for UTI intermittently over the last 4 weeks he has been drinking and eating fairly well. He has been on multiple medications as outlined which include apixaban 5mg q.12 hours clopidogrel 75mg daily levetiracetam 500mg q.12 hours he is not known to be allergic to any medication. He has ongoing history of anemia of chronic renal disease, cerebrovascular accident in the past, he is on chronic anticoagulation therapy, he has end-stage renal disease, he has ongoing epilepsy, and he has ongoing peripheral vascular disease for type 2 diabetes mellitus and hyperlipidemia. 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 He carries the full code status an initial exam in the ER revealed him to be responsive to verbal and painful stimuli the speech was not making any sense there was some spontaneous decreased movements of the right upper extremity compared to the left when he was resting, his vital signs were with blood pressure of 140/105 and 236/112, he was afebrile his CBC revealed no leukocytosis, BMP with BUN of 38 creatinine of 8.3 and negative for influenza a, influenza B, RSV, and SARs COVID, CT scan of the head revealed no bleed was found to have chronic right frontal lobe infarct with atrophy of the brain and white matter changes chest x-ray was negative and head and neck CTA documented subcutaneous edema at the left axilla with multiple collateral vessels at the axilla and tear left chest wall suggestive of the possibility of occlusion or stenosis of the veins draining the left upper extremity, in addition
[2023-11-25] MEDS: hydrALAZINE HCL 20 MG/ML VIAL 10 MG IV PUSH ×2 (12:28→16:54)
[2023-11-25 12:38] LABS: Glucose Point of Care 97 mg/dl (65-105)
--- NOTE | 2023-11-25 13:11 | PM.CNGS ---
Assessment and Plan Assessment and plan (1) Abscess of skin of neck: Code(s): L02.11 - Cutaneous abscess of neck Status: Acute Assessment and Plan: This is the reason for our consultation. There is an open draining wound on the right posterior neck. There is a small area of fluctuance of about 2.5 cm. His posterior neck and even extending to his upper back has the appearance of hidradenitis. There are a couple other scattered cystic lesion on his posterior neck, left face, and upper back, that all appears stable without any redness or tenderness. Wound cultures pending. WBC normal and he is afebrile. The right posterior neck draining wound is openly draining. Would continue local wound care for now. Continue IV antibiotics. Will monitor these areas and could consider possible bedside incision and drainage if no improvement, but patient would likely have to be less restless and agitated to be able to tolerate this at the bedside with only local anesthetic. We will continue to monitor closely. (2) Hydradenitis: Code(s): L73.2 - Hidradenitis suppurativa Status: Acute Assessment and Plan: Continue IV antibiotics. (3) End-stage renal disease on hemodialysis: Code(s): N18.6 - End stage renal disease; Z99.2 - Dependence on renal dialysis Status: Acute Assessment and Plan: On presentation, there were concerns with his tunnelled hemodialysis catheter. He received dialysis yesterday and the catheter is functioning well. (4) Elevated troponin: Code(s): R79.89 - Other specified abnormal findings of blood chemistry Status: Acute (5) Altered mental status: Code(s): R41.82 - Altered mental status, unspecified Status: Acute Assessment and Plan: This is the reason for his hospitalization. CT head was negative for any acute findings. Neurology was consulted. (6) Chronic anticoagulation: Code(s): Z79.01 - custodial (current) use of anticoagulants Status: Acute (7) Mediastinal mass: Code(s): J98.59 - Other diseases of mediastinum, not elsewhere classified Status: Acute (8) Epilepsy: Code(s): G40.909 - Epilepsy, unspecified, not intractable, without status epilepticus Status: Acute (9) Type 2 diabetes mellitus: Code(s): E11.9 - Type 2 diabetes mellitus without complications Status: Acute (10) Anemia in chronic kidney disease: Code(s): N18.9 - Chronic kidney disease, unspecified; D63.1 - Anemia in chronic kidney disease Status: Acute Plan I have discussed the patient's case and plan of care with Dr. An. History of Present Illness Consult details Consult date: 11/25/23 Reason for consult: other (Posterior draining neck wound) Requesting physician: Patricia Jensen PA-C Narrative: This is a 53-year-old man with history of stroke, epilepsy, end-stage renal disease on hemodialysis, type 2 diabetes mellitus, peripheral vascular disease status post right AKA and left BKA, and multiple other medical problems, who resides in a custodial and presented to the ER yesterday for evaluation irritation at his dialysis port and increased confusion. He is alert and can answer a few yes or no questions, but is unable to provide any history. Therefore, his history is obtained by review of the electronic medical record. Nursing staff is trying to get a hold of his . He is apparently confused at baseline, however the nursing facility felt he had increased confusion, restlessness, and agitation since 2 days ago. He had also been messing with his dialysis port frequently for the past few days, so they were concerned about his dialysis access. Workup in the ER showed a normal white blood cell count, mildly elevated troponin at 0.049 that have been flat on the repeat troponins. Brain CT and chest x-ray were negative for any acute findings. CT of the head and neck showed no large vessel occlusion or critical stenosi
--- NOTE | 2023-11-25 15:31 | P.PNNP_ITS ---
Progress Note: A&P Assessment and Plan (1) End stage renal disease: Code(s): N18.6 - End stage renal disease Status: Chronic Assessment and Plan: * HD tomorrow * continue T/T/S schedule while hospitalized * follow electrolytes, volume status, and clearance (2) Altered mental status: Code(s): R41.82 - Altered mental status, unspecified Status: Acute Assessment and Plan: * as noted since admission * etiology not clear * CT of brain did not show any acute findings * Neurology recommendations noted * follow mental status (3) Abscess of skin of neck: Code(s): L02.11 - Cutaneous abscess of neck Status: Acute Assessment and Plan: * as noted on exam * several cystic lesions localized to his posterior neck * one of these lesions is open and draining * follow culture data * on IV antibiotics * General Surgery following (4) Hypertension: Qualifiers: Hypertension type: primary hypertension Qualified Code(s): I10 - Essential (primary) hypertension Code(s): I10 - Essential (primary) hypertension Status: Chronic Assessment and Plan: * doing better * back on home medications * follow trend of hemodynamics (5) Anemia: Code(s): D64.9 - Anemia, unspecified Status: Chronic Assessment and Plan: * due to ESRD * Epogen with HD * follow trend of H/H (6) Type 2 diabetes mellitus: Code(s): E11.9 - Type 2 diabetes mellitus without complications Status: Chronic Assessment and Plan: * follow accu-cheks * glycemic control per hospitalists Will continue to follow. Subjective Date/time seen: 11/25/23 15:31 Interval history: Follow-up for end stage renal disease on hemodialysis. Mentation seems a little better -- able to answer yes/no questions; tolerated hemodialysis treatment yesterday without any issues or problems; BP doing a bit better; seen by Neurology and Surgery earlier today. Exam Narrative: General: WD/WN male in NAD; confused Heart: normal S1 and S2; no rub Lungs: clear anteriorly; decreased at bases Abdomen: soft, nontender, nondistended, positive bowel sounds Extremities: no cyanosis or clubbing; no edema; s/p L BKA and R AKA Skin: warm and dry Objective Data Vital Signs Vital Signs: Vital Signs Temp Pulse Resp BP Pulse Ox O2 Del Method 11/25/23 12:00 Room Air 11/25/23 12:00 89 11/25/23 12:38 98.2 F 89 12 159/87 H 100 11/25/23 10:00 90 11/25/23 08:00 86 11/25/23 08:00 Room Air 11/25/23 11:40 98.2 F 90 20 174/104 H 100 11/25/23 08:54 96.6 F L 91 20 176/104 H 100 11/25/23 08:20 96 Room Air 11/25/23 06:00 89 11/25/23 05:00 97.6 F 88 20 158/79 H 95 11/25/23 04:00 Room Air 11/25/23 04:00 86 11/25/23 02:00 97 11/25/23 00:00 97.7 F 93 20 155/85 H 92 11/25/23 00:00 Room Air 11/25/23 00:00 93 11/24/23 22:00 98 11/24/23 20:00 Room Air 11/24/23 20:00 90 11/24/23 23:21 98 11/24/23 20:30 97.6 F 93 20 183/97 H 97 11/24/23 19:12 97.5 F L 89 22 H 156/79 H 100 Int
--- NOTE | 2023-11-25 15:31 | PM.PNNEP ---
Progress Note: A&P Assessment and Plan (1) End stage renal disease: Code(s): N18.6 - End stage renal disease Status: Chronic Assessment and Plan: HD tomorrow continue T/T/S schedule while hospitalized follow electrolytes, volume status, and clearance (2) Altered mental status: Code(s): R41.82 - Altered mental status, unspecified Status: Acute Assessment and Plan: as noted since admission etiology not clear CT of brain did not show any acute findings Neurology recommendations noted follow mental status (3) Abscess of skin of neck: Code(s): L02.11 - Cutaneous abscess of neck Status: Acute Assessment and Plan: as noted on exam several cystic lesions localized to his posterior neck one of these lesions is open and draining follow culture data on IV antibiotics General Surgery following (4) Hypertension: Qualifiers: Hypertension type: primary hypertension Qualified Code(s): I10 - Essential (primary) hypertension Code(s): I10 - Essential (primary) hypertension Status: Chronic Assessment and Plan: doing better back on home medications follow trend of hemodynamics (5) Anemia: Code(s): D64.9 - Anemia, unspecified Status: Chronic Assessment and Plan: due to ESRD Epogen with HD follow trend of H/H (6) Type 2 diabetes mellitus: Code(s): E11.9 - Type 2 diabetes mellitus without complications Status: Chronic Assessment and Plan: follow accu-cheks glycemic control per hospitalists Will continue to follow. Subjective Date/time seen: 11/25/23 15:31 Interval history: Follow-up for end stage renal disease on hemodialysis. Mentation seems a little better -- able to answer yes/no questions; tolerated hemodialysis treatment yesterday without any issues or problems; BP doing a bit better; seen by Neurology and Surgery earlier today. Exam Narrative: General: WD/WN male in NAD; confused Heart: normal S1 and S2; no rub Lungs: clear anteriorly; decreased at bases Abdomen: soft, nontender, nondistended, positive bowel sounds Extremities: no cyanosis or clubbing; no edema; s/p L BKA and R AKA Skin: warm and dry Objective Data Vital Signs Vital Signs: Vital Signs Temp Pulse Resp BP Pulse Ox O2 Del Method 11/25/23 12:00 Room Air 11/25/23 12:00 89 11/25/23 12:38 98.2 F 89 12 159/87 H 100 11/25/23 10:00 90 11/25/23 08:00 86 11/25/23 08:00 Room Air 11/25/23 11:40 98.2 F 90 20 174/104 H 100 11/25/23 08:54 96.6 F L 91 20 176/104 H 100 11/25/23 08:20 96 Room Air 11/25/23 06:00 89 11/25/23 05:00 97.6 F 88 20 158/79 H 95 11/25/23 04:00 Room Air 11/25/23 04:00 86 11/25/23 02:00 97 11/25/23 00:00 97.7 F 93 20 155/85 H 92 11/25/23 00:00 Room Air 11/25/23 00:00 93 11/24/23 22:00 98 11/24/23 20:00 Room Air 11/24/23 20:00 90 11/24/23 23:21 98 11/24/23 20:30 97.6 F 93 20 183/97 H 97 11/24/23 19:12 97.5 F L 89 22 H 156/79 H 100 Intake/Output Intake/Output: Intake & Output 11/22/23 11/23/23 11/24/23 11/25/23 23:59 23:59 23:59 23:59 Intake Total 1052 621 Output Total 3000 Balance -1865 621 Meds/Results Medications: Active Medications Generic Name Dose Route Start Last Admin Trade Name Freq PRN Reason Stop Dose Admin Acetaminophen 650 mg 11/24/23 21:10 Acetaminophen 325 Mg Tablet PO Q6H PRN Mild Pain (1-3) or Fever Apixaban 5 mg 11/24/23 21:15 11/25/23 12:17 Apixaban 5 Mg Tablet PO Not Given Q12HR AZALEA Atorvastatin Calcium 20 mg 11/24/23 21:25 11/24/23 23:22 Atorvastatin 20 Mg Tablet PO Not Given HS AZALEA Bupropion HCl 150 mg 11/25/23 09:00 11/25/23 12:17 Bupropion Hcl Sr (12 Hr) 150 Mg Tab PO Not Given Q12
[2023-11-25 16:11] LABS: Glucose Point of Care 107 mg/dl (65-105)
--- NOTE | 2023-11-25 16:21 | PM.IMPN ---
Progress Note: A&P Assessment and Plan (1) Altered mental status: Code(s): R41.82 - Altered mental status, unspecified Status: Acute (2) Elevated troponin: Code(s): R79.89 - Other specified abnormal findings of blood chemistry Status: Acute (3) Abscess of skin of neck: Code(s): L02.11 - Cutaneous abscess of neck Status: Acute (4) Left arm swelling: Code(s): M79.89 - Other specified soft tissue disorders Status: Chronic (5) End-stage renal disease on hemodialysis: Code(s): N18.6 - End stage renal disease; Z99.2 - Dependence on renal dialysis Status: Acute (6) Mediastinal mass: Code(s): J98.59 - Other diseases of mediastinum, not elsewhere classified Status: Acute (7) Anemia in chronic kidney disease: Code(s): N18.9 - Chronic kidney disease, unspecified; D63.1 - Anemia in chronic kidney disease Status: Acute (8) Type 2 diabetes mellitus: Code(s): E11.9 - Type 2 diabetes mellitus without complications Status: Acute (9) Hypertension: Qualifiers: Hypertension type: primary hypertension Qualified Code(s): I10 - Essential (primary) hypertension Code(s): I10 - Essential (primary) hypertension Status: Acute (10) Peripheral vascular disease: Code(s): I73.9 - Peripheral vascular disease, unspecified Status: Acute (11) Chronic anticoagulation: Code(s): Z79.01 - [facility] (current) use of anticoagulants Status: Acute Plan The patient presented to the emergency department for evaluation of irritation at dialysis port in addition to a change in mental status as detailed in HPI. Labs, imaging, EKG, and all reports were personally reviewed. Dialysis port is in working order and he is currently undergoing dialysis. Etiology of his change in mental status is not entirely clear. Brain CT did not show any acute findings however stroke certainly is a possibility and brain MRI has been ordered. There are no meningeal signs on exam to suggest meningitis however if his symptoms do not improve and LP may be appropriate. Does not seem to be in a postictal state. He received several doses of IV lorazepam in the ED which may be contributing. Continue to monitor neurologic checks. He has several, shallow cystic lesions on his posterior neck and has been started on clindamycin pending wound culture. One of these lesions is open and draining however the others may need to be open thus will consult General surgery. Wound nurse has also been consulted. Regarding the elevated troponin, they have been flat and are not likely to be indicative of acute coronary syndrome. There is swelling in both upper extremities but on CT scan he has subcutaneous edema at the left axilla which raise the possibility of occlusion or stenosis and some of the veins draining that arm thus will obtain upper extremity venous Doppler ultrasounds. He is on Eliquis which will be continued. CT scan also shows an indeterminate 2.1 x 1.9 cm anterior mediastinal mass. He has apparently been at [facility] several times recently and records have been requested to see if he has had any chest CTs or other imaging for comparison. Nephrology has been consulted for dialysis. Pt unable to swallow anything keep npo with slow fluids Surgery and neurology rounding continue iv abx for abscess in neck increase seizure medications If condition worsens will need LP, MRI head, EEG and MBS Treat agitation with prn zyprexa only if pt gets very agitated await wound, urine, blood culture report Subjective Date/time seen: 11/25/23 16:21 Interval history: 53-year-old male with history of stroke, epilepsy, end-stage renal disease on hemodialysis, hypertension, hyperlipidemia, anemia, type 2 diabetes mellitus, gastroesophageal reflux disease, and depression who presented to the emergency department for evaluation of irritation at his dialysis port and
[2023-11-25] MEDS: SODIUM CHLORIDE 0.9% IV 1,000 ML 40 ML IV CONT (16:54)
[2023-11-25] MEDS: LORazepam (*CRX) 0.5 MG TABLET PO (18:21)
[2023-11-25 20:00] LABS: Glucose Point of Care 140 mg/dl (65-105)
[2023-11-25] MEDS: DOXAZOSIN MESYLATE 2 MG TABLET PO (20:35)
[2023-11-25] MEDS: levETIRAcetam 500 MG TABLET PO (20:35)
[2023-11-25] MEDS: buPROPion HCL SR (12 HR) 150 MG TAB PO (20:35)
[2023-11-25] MEDS: traZODone HCL 50 MG TABLET PO (20:35)
[2023-11-25] MEDS: ATORVASTATIN 20 MG TABLET PO (20:35)
[2023-11-25] MEDS: minoxidiL 2.5 MG TABLET PO (20:35)
[2023-11-25] MEDS: APIXABAN 5 MG TABLET PO (20:35)
[2023-11-25] MEDS: levETIRAcetam 500MG/NACL 100ML 500 MG/100 ML BAG 400 MG IVPB (20:38)
[2023-11-26] VITALS (28 sets, daily range): BP systolic 104–201; BP diastolic 46–78; PULSE 64–83; RESP 12–18; TEMP 36–37.4; O2SAT 96–100
[2023-11-26] MEDS: CLINDAMYCIN 300 MG in DEXTROSE 5% IN WATER 50 ML 104 MG IVPB ×5 (00:16→23:54)
[2023-11-26] MEDS: hydrALAZINE HCL 20 MG/ML VIAL 10 MG IV PUSH (03:45)
[2023-11-26 05:05] LABS: Hematocrit 40.1 % (42.0-52.0); Hemoglobin 12.2 g/dL (14.0-18.0); Mean Corpuscular HGB Conc 30.4 g/dl (32-36); Mean Corpuscular Hemoglobin 28.5 pg (26-34); Mean Corpuscular Volume 93.7 fl (80-100); Mean Platelet Volume 11.4 fl (7.4-10.4); Platelet Count Result 226 k/mm3 (150-375); Red Blood Count 4.28 M/mm3 (4.6-6.20); Red Cell Distribution Width 14.1 % (11.5-14.5); White Blood Count 5.5 K/mm3 (4.5-10.0)
[2023-11-26 05:16] LABS: Anion Gap 11 mmol/L (4-12); Blood Urea Nitrogen 26 mg/dL (9-20); Calcium 10.2 mg/dL (8.4-10.2); Carbon Dioxide 23 mmol/L (22-30); Chloride 105 mmol/L (98-107); Estimated CRCL calculation 8 ml/min; Estimated Glomerular Filt Rate 9; Glucose 107 mg/dL (65-110); Potassium 4.2 mmol/L (3.4-5.0); Sodium 139 mmol/L (137-145)
[2023-11-26 07:49] LABS: Glucose Point of Care 107 mg/dl (65-105)
[2023-11-26] MEDS: levETIRAcetam 500MG/NACL 100ML 500 MG/100 ML BAG 400 MG IVPB ×2 (08:22→23:23)
[2023-11-26] MEDS: NIFEdipine 30 MG TAB.ER.24 90 MG PO (08:22)
[2023-11-26] MEDS: LABETALOL HCL 100 MG TABLET 300 MG PO ×2 (08:22→19:12)
[2023-11-26] MEDS: CLOPIDOGREL BISULFATE 75 MG TABLET PO (08:23)
[2023-11-26] MEDS: CALCIUM ACETATE 667 MG TABLET PO ×3 (08:23→19:13)
[2023-11-26] MEDS: APIXABAN 5 MG TABLET PO (08:23)
[2023-11-26] MEDS: LOSARTAN POTASSIUM 100 MG TABLET PO (08:23)
[2023-11-26] MEDS: minoxidiL 2.5 MG TABLET PO ×2 (08:23→23:29)
[2023-11-26] MEDS: buPROPion HCL SR (12 HR) 150 MG TAB PO ×2 (08:23→23:29)
[2023-11-26] MEDS: PANTOPRAZOLE 40 MG TABLET PO (08:23)
[2023-11-26] MEDS: hydrALAZINE HCL 50 MG TABLET PO ×2 (08:23→19:13)
[2023-11-26] MEDS: ISOSORBIDE DINITRATE 20 MG TABLET PO ×2 (08:23→19:13)
[2023-11-26] MEDS: cloNIDine HCL 0.2 MG TABLET PO (08:30)
--- NOTE | 2023-11-26 09:28 | PCSTNOTE ---
Please refer to the Bedside Swallow Evaluation in the EMR. Please note, silent aspiration cannot be ruled out at bedside.
[2023-11-26] MEDS: ACETAMINOPHEN 325 MG TABLET 650 MG PO ×2 (11:25→23:28)
[2023-11-26 11:52] LABS: Glucose Point of Care 168 mg/dl (65-105)
--- NOTE | 2023-11-26 12:57 | WPDNEUROPN ---
Progress Note: A&P Assessment and Plan (1) Altered mental status: Code(s): R41.82 - Altered mental status, unspecified Status: Acute (2) Abscess of skin of neck: Code(s): L02.11 - Cutaneous abscess of neck Status: Acute (3) End-stage renal disease on hemodialysis: Code(s): N18.6 - End stage renal disease; Z99.2 - Dependence on renal dialysis Status: Acute (4) History of stroke: Code(s): Z86.73 - Personal history of transient ischemic attack (TIA), and cerebral infarction without residual deficits Status: Acute (5) Epilepsy: Code(s): G40.909 - Epilepsy, unspecified, not intractable, without status epilepticus Status: Acute Plan Mr. Clarence Morillo is a 53 year old male with a history of prior stroke, seizures, ESRD, HTN, HLD, DM, GERD, depression who presented due to dialysis port irritation and altered mental status. He was found to have a neck abscess, which could be contributing to the mental status change. Seems unlikely that this is breakthrough seizure related. He appears to have weakness of the RUE. Not sure if this is a new finding or related to prior stroke, but would recommend MRI brain to rule out acute infarct. If mentation does not improve despite adequate treatment of underlying infection would consider LP for evaluation of meningitis/encephalitis. Subjective Date/time seen: 11/26/23 12:57 Interval history: Mr. Clarence Morillo is a 53 year old male with a history of prior stroke, seizures, ESRD, HTN, HLD, DM, GERD, depression who presented due to dialysis port irritation and altered mental status. At baseline he is AOx1 per chart review, but has been more confused and agitated since the night prior to admission. He resides in a nursing facility who noted that his dialysis catheter appeared irritated. On presentation to [facility] his BP was high as 229 systolic. He was noted to have a neck mass which was ultimately diagnosed as abscess. He was started on antibiotics and subsequent admitted. He takes Keppra 500mg BID for seizures. CTA brain/carotid showed moderate stenoses in the cavernous portions of the distal internal carotid arteries but no other significant findings. Dr. Boucher thought that he had possibly had a seizure that resulted in the change in his mentation so he suggested increasing the Keppra to 750mg BID. BP in the past day has been better, mostly in the 140s systolic. Review of Systems Review of Systems: ROS unobtainable: Yes unobtainable due to mental status Exam Const: General: comfortable and no acute distress HENMT: Mouth: Yes moist mucous membranes Other: edentulous Eyes: Pupils: Equal, round and reactive pupils present Other: conjugate gaze Resp: Effort & Inspection: normal respiratory effort Skin: General skin exam: normal color Neuro: Other: Awake, oriented to self and knew that he is at the hospital but did not know which one. PERRL, gaze is conjugate, face appears to be symmetric. No antigravity movement of the RUE (patient says it's because he hurt his shoulder), LUE is 4/5, able to move bilateral lower extremities against gravity. Extrem: Other: R AKA, L BKA Objective Data Vital Signs Vital Signs: Vital Signs - 24 hr 11/25/23 16:00 11/25/23 16:00 11/25/23 14:00 Temperature 36.6 C Pulse Rate 95 88 Respiratory Rate 12 Blood Pressure 232/90 H Pulse Oximetry 100 100 Oxygen Delivery Room Air 11/25/23 16:00 11/25/23 18:00 11/25/23 20:14 Temperature 36.4 C Pulse Rate 93 92 101 H Respiratory Rate 16 Blood Pressure 229/88 H Pulse Oximetry 98 Oxygen Delivery 11/25/23 21:54 11/25/23 20:00 11/25/23 20:00 Temperature Pulse Rate 87 113 H Respiratory Rate Blood Pressure 185/70 H Pulse Oximetry Oxygen Delivery Room Air 11/25/23 22:00 11/25/23 23:38 11/26/23 00:00 Temperature 36.4 C Pulse Rate 86 83 80 Respiratory Rate 16 Blood Press
--- NOTE | 2023-11-26 14:48 | PCCCNOTE ---
On 11/26/23, the student, Debi Clemons, provided care and completed [facility] documentation on this patient. I have reviewed the student's documentation and agree with the findings.
--- NOTE | 2023-11-26 15:15 | PM.IMPN ---
Progress Note: A&P Assessment and Plan (1) Altered mental status: Code(s): R41.82 - Altered mental status, unspecified Status: Acute (2) Elevated troponin: Code(s): R79.89 - Other specified abnormal findings of blood chemistry Status: Acute (3) Abscess of skin of neck: Code(s): L02.11 - Cutaneous abscess of neck Status: Acute (4) Left arm swelling: Code(s): M79.89 - Other specified soft tissue disorders Status: Chronic (5) End-stage renal disease on hemodialysis: Code(s): N18.6 - End stage renal disease; Z99.2 - Dependence on renal dialysis Status: Acute (6) Mediastinal mass: Code(s): J98.59 - Other diseases of mediastinum, not elsewhere classified Status: Acute (7) Anemia in chronic kidney disease: Code(s): N18.9 - Chronic kidney disease, unspecified; D63.1 - Anemia in chronic kidney disease Status: Acute (8) Type 2 diabetes mellitus: Code(s): E11.9 - Type 2 diabetes mellitus without complications Status: Acute (9) Hypertension: Qualifiers: Hypertension type: primary hypertension Qualified Code(s): I10 - Essential (primary) hypertension Code(s): I10 - Essential (primary) hypertension Status: Acute (10) Peripheral vascular disease: Code(s): I73.9 - Peripheral vascular disease, unspecified Status: Acute (11) Chronic anticoagulation: Code(s): Z79.01 - [facility] (current) use of anticoagulants Status: Acute Plan The patient presented to the emergency department for evaluation of irritation at dialysis port in addition to a change in mental status as detailed in HPI. Labs, imaging, EKG, and all reports were personally reviewed. Dialysis port is in working order and he is currently undergoing dialysis. Etiology of his change in mental status is not entirely clear. Brain CT did not show any acute findings however stroke certainly is a possibility and brain MRI has been ordered. There are no meningeal signs on exam to suggest meningitis however if his symptoms do not improve and LP may be appropriate. Does not seem to be in a postictal state. He received several doses of IV lorazepam in the ED which may be contributing. Continue to monitor neurologic checks. He has several, shallow cystic lesions on his posterior neck and has been started on clindamycin pending wound culture. One of these lesions is open and draining however the others may need to be open thus will consult General surgery. Wound nurse has also been consulted. Regarding the elevated troponin, they have been flat and are not likely to be indicative of acute coronary syndrome. There is swelling in both upper extremities but on CT scan he has subcutaneous edema at the left axilla which raise the possibility of occlusion or stenosis and some of the veins draining that arm thus will obtain upper extremity venous Doppler ultrasounds. He is on Eliquis which will be continued. CT scan also shows an indeterminate 2.1 x 1.9 cm anterior mediastinal mass. He has apparently been at [facility] several times recently and records have been requested to see if he has had any chest CTs or other imaging for comparison. Nephrology has been consulted for dialysis. Surgery and neurology rounding continue iv abx for abscess in neck increase seizure medications Pt much improved with iv keppra and iv clindamycin Follow BC wound culture and urine culture creat is 7.6 nephrology on board Subjective Date/time seen: 11/26/23 15:15 Interval history: 53-year-old male with history of stroke, epilepsy, end-stage renal disease on hemodialysis, hypertension, hyperlipidemia, anemia, type 2 diabetes mellitus, gastroesophageal reflux disease, and depression who presented to the emergency department for evaluation of irritation at his dialysis port and increasing confusion. Pt is much the same was reported to be agitated at his NH Pt
--- NOTE | 2023-11-26 15:50 | PM.PNNEP ---
Progress Note: A&P Assessment and Plan (1) End stage renal disease: Code(s): N18.6 - End stage renal disease Status: Chronic Assessment and Plan: HD today continue T/T/S schedule while hospitalized follow electrolytes, volume status, and clearance (2) Altered mental status: Code(s): R41.82 - Altered mental status, unspecified Status: Acute Assessment and Plan: clinical improvement noted etiology not clear CT of brain did not show any acute findings Neurology recommendations noted follow mental status (3) Abscess of skin of neck: Code(s): L02.11 - Cutaneous abscess of neck Status: Acute Assessment and Plan: as noted on exam several cystic lesions localized to his posterior neck one of these lesions is open and draining follow culture data on IV antibiotics General Surgery following (4) Hypertension: Qualifiers: Hypertension type: primary hypertension Qualified Code(s): I10 - Essential (primary) hypertension Code(s): I10 - Essential (primary) hypertension Status: Chronic Assessment and Plan: doing better back on home medications follow trend of hemodynamics (5) Anemia: Code(s): D64.9 - Anemia, unspecified Status: Chronic Assessment and Plan: due to ESRD Epogen with HD follow trend of H/H (6) Type 2 diabetes mellitus: Code(s): E11.9 - Type 2 diabetes mellitus without complications Status: Chronic Assessment and Plan: follow accu-cheks glycemic control per hospitalists Will continue to follow. Subjective Date/time seen: 11/26/23 15:50 Interval history: Follow-up for end stage renal disease on hemodialysis. Tolerating dialysis treatment at the time of my visit (seen on HD at 3:35PM); mentation seems to have greatly improved in the last 24 hours -- awake & alert and able to have a conversation as well as answer questions appropriately; no apparent distress noted. Exam Narrative: General: WD/WN male in NAD Heart: normal S1 and S2; no rub Lungs: clear anteriorly; decreased at bases Abdomen: soft, nontender, nondistended, positive bowel sounds Extremities: no cyanosis or clubbing; no edema; s/p L BKA and R AKA Skin: warm and intact Objective Data Vital Signs Vital Signs: Vital Signs Temp Pulse Resp BP Pulse Ox O2 Del Method 11/26/23 12:41 96.8 F L 64 12 117/54 L 96 11/26/23 12:33 104/46 L 11/26/23 10:00 66 11/26/23 08:00 77 11/26/23 08:00 Room Air 11/26/23 08:00 97.6 F 79 16 201/78 H 100 11/26/23 06:00 80 11/26/23 06:07 97.8 F 81 16 159/76 H 97 11/26/23 04:00 Room Air 11/26/23 04:00 83 11/26/23 02:00 77 11/26/23 00:00 Room Air 11/26/23 00:00 80 11/25/23 23:38 97.6 F 83 16 204/71 H 97 11/25/23 22:00 86 11/25/23 20:00 Room Air 11/25/23 20:00 113 H 11/25/23 21:54 87 185/70 H 11/25/23 20:14 97.6 F 101 H 16 229/88 H 98 11/25/23 18:00 92 Intake/Output Intake/Output: Intake & Output 11/23/23 11/24/23 11/25/23 11/26/23 23:59 23:59 23:59 23:59 Intake Total 1052 1133 784 Output Total 3000 Balance -3848 1133 784 Meds/Results Medications: Active Medications Generic Name Dose Route Start Last Admin Trade Name Freq PRN Reason Stop Dose Admin Acetaminophen 650 mg 11/24/23 21:10 11/26/23 11:25 Acetaminophen 325 Mg Tablet PO 650 mg Q6H PRN Administration Mild Pain (1-3) or Fever Apixaban 5 mg 11/24/23 21:15 11/26/23 08:23 Apixaban 5 Mg Tablet PO 5 mg Q12HR AZALEA Administration Atorvastatin Calcium 20 mg 11/24/23 21:25 11/25/23 20:35 Atorvastatin 20 Mg Tablet PO 20 mg HS AZALEA Administration Bupropion HCl 150 mg 11/25/23 09:00 11/26/23 08:23 Bupropion Hcl Sr (12 Hr) 150 Mg Tab PO 150 mg Q12HR AZALEA Administra
--- NOTE | 2023-11-26 15:50 | P.PNNP_ITS ---
Progress Note: A&P Assessment and Plan (1) End stage renal disease: Code(s): N18.6 - End stage renal disease Status: Chronic Assessment and Plan: * HD today * continue T/T/S schedule while hospitalized * follow electrolytes, volume status, and clearance (2) Altered mental status: Code(s): R41.82 - Altered mental status, unspecified Status: Acute Assessment and Plan: * clinical improvement noted * etiology not clear * CT of brain did not show any acute findings * Neurology recommendations noted * follow mental status (3) Abscess of skin of neck: Code(s): L02.11 - Cutaneous abscess of neck Status: Acute Assessment and Plan: * as noted on exam * several cystic lesions localized to his posterior neck * one of these lesions is open and draining * follow culture data * on IV antibiotics * General Surgery following (4) Hypertension: Qualifiers: Hypertension type: primary hypertension Qualified Code(s): I10 - Essential (primary) hypertension Code(s): I10 - Essential (primary) hypertension Status: Chronic Assessment and Plan: * doing better * back on home medications * follow trend of hemodynamics (5) Anemia: Code(s): D64.9 - Anemia, unspecified Status: Chronic Assessment and Plan: * due to ESRD * Epogen with HD * follow trend of H/H (6) Type 2 diabetes mellitus: Code(s): E11.9 - Type 2 diabetes mellitus without complications Status: Chronic Assessment and Plan: * follow accu-cheks * glycemic control per hospitalists Will continue to follow. Subjective Date/time seen: 11/26/23 15:50 Interval history: Follow-up for end stage renal disease on hemodialysis. Tolerating dialysis treatment at the time of my visit (seen on HD at 3:35PM); mentation seems to have greatly improved in the last 24 hours -- awake & alert and able to have a conversation as well as answer questions appropriately; no apparent distress noted. Exam Narrative: General: WD/WN male in NAD Heart: normal S1 and S2; no rub Lungs: clear anteriorly; decreased at bases Abdomen: soft, nontender, nondistended, positive bowel sounds Extremities: no cyanosis or clubbing; no edema; s/p L BKA and R AKA Skin: warm and intact Objective Data Vital Signs Vital Signs: Vital Signs Temp Pulse Resp BP Pulse Ox O2 Del Method 11/26/23 12:41 96.8 F L 64 12 117/54 L 96 11/26/23 12:33 104/46 L 11/26/23 10:00 66 11/26/23 08:00 77 11/26/23 08:00 Room Air 11/26/23 08:00 97.6 F 79 16 201/78 H 100 11/26/23 06:00 80 11/26/23 06:07 97.8 F 81 16 159/76 H 97 11/26/23 04:00 Room Air 11/26/23 04:00 83 11/26/23 02:00 77 11/26/23 00:00 Room Air 11/26/23 00:00 80 11/25/23 23:38 97.6 F 83 16 204/71 H 97 11/25/23 22:00 86 11/25/23 20:00 Room Air 11/25/23 20:00 113 H 11/25/23 21:54 87 185/70 H 11/25/23 20:14 97.6 F 101 H 16 229/88 H 98 11/25/23 18:00 92 Intake/Output Intake/Output: Intake & Output
[2023-11-26 17:45] LABS: Glucose Point of Care 140 mg/dl (65-105)
[2023-11-26 20:09] LABS: Glucose Point of Care 130 mg/dl (65-105)
--- NOTE | 2023-11-26 21:15 | PC.NURSE ---
Allison SHAH notified of patient's bilateral arm venous doppler impressions. PA with new orders to discontinue Eliquis and to start patient on a Heparin drip and heparin bolus.
[2023-11-26 23:02] LABS: Basophils Absolute Auto 0.1 K/mm3 (0.0-0.1); Eosinophils Absolute Auto 0.2 K/mm3 (0-0.3); Eosinophils Percent Auto 4.3 % (0-4.4); Hemoglobin 10.8 g/dL (14.0-18.0); Immature Granulocyte Absolute 0.01 K/mm3 (0.00-0.031); Immature Granulocyte Percent A 0.2 % (0-0.5); Lymphocytes Absolute Auto 0.95 K/mm3 (0.9-3.2); Lymphocytes Percent Auto 19.7 % (18.3-44.2); Mean Corpuscular HGB Conc 31.8 g/dl (32-36); Mean Corpuscular Hemoglobin 28.6 pg (26-34); Mean Corpuscular Volume 89.9 fl (80-100); Mean Platelet Volume 11.1 fl (7.4-10.4); Monocytes Absolute Auto 0.5 K/mm3 (0.1-0.6); Monocytes Percent Auto 10.8 % (2.6-8.5); Neutrophils Absolute Auto 3.1 K/mm3 (1.3-6.7); Platelet Count Result 264 k/mm3 (150-375); Red Blood Count 3.78 M/mm3 (4.6-6.20); Red Cell Distribution Width 14.1 % (11.5-14.5); White Blood Count 4.8 K/mm3 (4.5-10.0)
[2023-11-26 23:12] LABS: INR 1.1; Prothrombin Time 15.2 Seconds (11.1-14.7)
[2023-11-26 23:13] LABS: Partial Thromboplastin Time 34.9 Seconds (22.3-36.8)
[2023-11-26] MEDS: LORazepam (*CRX) 0.5 MG TABLET PO (23:28)
[2023-11-26] MEDS: DOXAZOSIN MESYLATE 2 MG TABLET PO (23:29)
[2023-11-26] MEDS: ATORVASTATIN 20 MG TABLET PO (23:29)
[2023-11-26] MEDS: traZODone HCL 50 MG TABLET PO (23:29)
[2023-11-26] MEDS: HEPARIN SOD/D5W 100 UNITS/ML 25,000 UNITS/250 ML BAG 10 UNITS IV CONT (23:47)
[2023-11-26] MEDS: HEPARIN SODIUM 5,000 UNITS/ML VIAL 4500 UNITS IV PUSH (23:49)
[2023-11-27] MEDS: CLINDAMYCIN 300 MG in DEXTROSE 5% IN WATER 50 ML 104 MG IVPB ×3 (05:30→18:39)
[2023-11-27 06:30] LABS: Basophils Absolute Auto 0.1 K/mm3 (0.0-0.1); Eosinophils Absolute Auto 0.2 K/mm3 (0-0.3); Eosinophils Percent Auto 4.3 % (0-4.4); Hemoglobin 11.1 g/dL (14.0-18.0); Immature Granulocyte Absolute 0.01 K/mm3 (0.00-0.031); Immature Granulocyte Percent A 0.2 % (0-0.5); Lymphocytes Absolute Auto 1.27 K/mm3 (0.9-3.2); Lymphocytes Percent Auto 25.9 % (18.3-44.2); Mean Corpuscular HGB Conc 30.8 g/dl (32-36); Mean Corpuscular Hemoglobin 28.3 pg (26-34); Mean Corpuscular Volume 91.8 fl (80-100); Mean Platelet Volume 11.5 fl (7.4-10.4); Monocytes Absolute Auto 0.5 K/mm3 (0.1-0.6); Neutrophils Absolute Auto 2.8 K/mm3 (1.3-6.7); Neutrophils Percent Auto 57.6 % (45.5-73.1); Platelet Count Result 262 k/mm3 (150-375); Red Blood Count 3.92 M/mm3 (4.6-6.20); Red Cell Distribution Width 13.8 % (11.5-14.5); White Blood Count 4.9 K/mm3 (4.5-10.0)
[2023-11-27 06:44] LABS: Partial Thromboplastin Time 57.5 Seconds (22.3-36.8)
--- NOTE | 2023-11-27 06:47 | PC.NURSE ---
This patient, Clarence Morillo, was transferred to [[id number] ] on 11/27/23 at 0645. Personal belongings sent with patient. Report given to [Lois JUNIOR ]. Appropriate documentation sent with patient. Call placed to Gwen, sister, in regards to patient's transfer. Gwen verbalized understanding.
[2023-11-27 06:48] LABS: Anion Gap 8 mmol/L (4-12); Blood Urea Nitrogen 17 mg/dL (9-20); Calcium 9.7 mg/dL (8.4-10.2); Carbon Dioxide 29 mmol/L (22-30); Chloride 99 mmol/L (98-107); Estimated CRCL calculation 13 ml/min; Estimated Glomerular Filt Rate 17; Glucose 127 mg/dL (65-110); Potassium 3.7 mmol/L (3.4-5.0); Sodium 136 mmol/L (137-145)
[2023-11-27 07:48] LABS: Glucose Point of Care 118 mg/dl (65-105)
--- NOTE | 2023-11-27 09:15 | PCNFU ---
Nutrition Follow-Up Complete: Severe protein calorie malnutrition related to chronic end stage renal disease as evidenced by intakes <75% needs >1 month; weight loss -22%/1 year; moderate muscle wasting and fat loss Improve pO intake to at least 50% meals and supplements _ Goal is being met. Continue with current goal. Goal: Pt current nutrition is Heart healthy diet. Soft&Bite size level 6. Nepro BID for additional 420 kcal and 19 g protein each. Nutrition recommendation: No new nutrition recommendations. Continue with nutrition care plan. Agree with orders. Last recorded weight is 67.9 kg. Bowel Motility: +2 BM 11/25/23 Labs Reviewed: Hgb 11.1, Hct 36, Na 136, GFR 7, Cre 4.5, Glu 127 Meds Noted: Albumin, protonix, miralax Skin: No pressure. BL BKA Additional Notes: Pt's mental status improved yesterday and he is able to eat. Intakes good yesterday.. 75-100%. Continue current care plan Monitoring intakes, weights, labs, supplement tolerance, plan of care Follow up in 5 days
[2023-11-27 09:25] VITALS: PULSE 78
[2023-11-27] MEDS: polyethylene glycoL 3350 17 GM POWD.PACK PO (09:25)
[2023-11-27] MEDS: LORazepam (*CRX) 0.5 MG TABLET PO ×2 (09:25→20:50)
[2023-11-27] MEDS: PANTOPRAZOLE 40 MG TABLET PO (09:25)
[2023-11-27] MEDS: levETIRAcetam 500MG/NACL 100ML 500 MG/100 ML BAG 400 MG IVPB (09:25)
[2023-11-27] MEDS: LABETALOL HCL 100 MG TABLET 300 MG PO ×2 (09:25→18:39)
[2023-11-27] MEDS: NIFEdipine 30 MG TAB.ER.24 90 MG PO (09:26)
[2023-11-27] MEDS: LOSARTAN POTASSIUM 100 MG TABLET PO (09:26)
[2023-11-27] MEDS: minoxidiL 2.5 MG TABLET PO ×2 (09:26→20:50)
[2023-11-27] MEDS: buPROPion HCL SR (12 HR) 150 MG TAB PO ×2 (09:26→20:51)
[2023-11-27] MEDS: hydrALAZINE HCL 50 MG TABLET PO ×3 (09:26→18:39)
[2023-11-27] MEDS: CLOPIDOGREL BISULFATE 75 MG TABLET PO (09:26)
[2023-11-27] MEDS: CALCIUM ACETATE 667 MG TABLET PO ×3 (09:26→18:39)
[2023-11-27] MEDS: ACETAMINOPHEN 325 MG TABLET 650 MG PO ×2 (09:26→20:50)
[2023-11-27] MEDS: calcitrioL 0.25 MCG CAPSULE PO (09:32)
--- NOTE | 2023-11-27 10:52 | PM.PNNEP ---
Progress Note: A&P Assessment and Plan (1) End stage renal disease: Code(s): N18.6 - End stage renal disease Status: Chronic Assessment and Plan: HD tomorrow continue T/T/S schedule while hospitalized follow electrolytes, volume status, and clearance (2) Altered mental status: Code(s): R41.82 - Altered mental status, unspecified Status: Acute Assessment and Plan: clinical improvement noted etiology not clear CT of brain did not show any acute findings Neurology recommendations noted follow mental status (3) Abscess of skin of neck: Code(s): L02.11 - Cutaneous abscess of neck Status: Acute Assessment and Plan: as noted on exam several cystic lesions localized to his posterior neck one of these lesions is open and draining follow culture data on IV antibiotics General Surgery following (4) Hypertension: Qualifiers: Hypertension type: primary hypertension Qualified Code(s): I10 - Essential (primary) hypertension Code(s): I10 - Essential (primary) hypertension Status: Chronic Assessment and Plan: doing better back on home medications follow trend of hemodynamics (5) Anemia: Code(s): D64.9 - Anemia, unspecified Status: Chronic Assessment and Plan: due to ESRD Epogen with HD follow trend of H/H (6) Type 2 diabetes mellitus: Code(s): E11.9 - Type 2 diabetes mellitus without complications Status: Chronic Assessment and Plan: follow accu-cheks glycemic control per hospitalists Will continue to follow. Subjective Date/time seen: 11/27/23 10:52 Interval history: Follow-up for end stage renal disease on hemodialysis. Mentation continues to improve if not stabilize; tolerated dialysis treatment yesterday without any issues or problems; no apparent distress voiced at the time of my visit; no issues/events overnight or earlier this morning. Exam Narrative: General: WD/WN male in NAD Heart: normal S1 and S2; no rub Lungs: clear anteriorly; decreased at bases Abdomen: soft, nontender, nondistended, positive bowel sounds Extremities: no cyanosis or clubbing; no edema; s/p L BKA and R AKA Skin: no rash Objective Data Vital Signs Vital Signs: Vital Signs Temp Pulse Resp BP Pulse Ox O2 Del Method 11/27/23 10:08 96.5 F L 78 18 174/62 H 99 Room Air 11/27/23 09:25 78 11/26/23 23:45 163/60 H 11/26/23 23:44 97.5 F L 77 18 163/60 H 96 11/26/23 20:00 Room Air 11/26/23 20:21 97.6 F 82 18 150/59 H 100 11/26/23 18:56 98.2 F 82 18 155/78 H 11/26/23 18:56 82 145/75 H 11/26/23 18:30 81 135/72 11/26/23 18:15 81 144/65 H 11/26/23 18:00 81 144/69 H 11/26/23 17:45 79 148/67 H 11/26/23 17:30 78 148/63 H 11/26/23 17:15 76 147/64 H 11/26/23 17:00 76 145/61 H 11/26/23 16:45 73 130/57 L 11/26/23 16:30 74 138/62 11/26/23 16:15 74 142/65 H 11/26/23 16:00 73 143/64 H Intake/Output Intake/Output: Intake & Output 11/24/23 11/25/23 11/26/23 11/27/23 23:59 23:59 23:59 23:59 Intake Total 1052 1133 1138 1236 Output Total 3000 3100 Balance -1948 1133 -1962 1236 Meds/Results Medications: Active Medications Generic Name Dose Route Start Last Admin Trade Name Freq PRN Reason Stop Dose Admin Acetaminophen 650 mg 11/24/23 21:10 11/27/23 09:26 Acetaminophen 325 Mg Tablet PO 650 mg Q6H PRN Administration Mild Pain (1-3) or Fever Atorvastatin Calcium 20 mg 11/24/23 21:25 11/26/23 23:29 Atorvastatin 20 Mg Tablet PO 20 mg HS AZALEA Administration Bupropion HCl 150 mg 11/25/23 09:00 11/27/23 09:26 Bupropion Hcl Sr (12 Hr) 150 Mg Tab PO 150 mg Q12HR AZALEA Administration Calcitriol 0.25 mcg 11/25/23 09:00 11/27/23 09:32 Calcitriol 0.25 Mcg Capsule PO 0.25 mcg M
--- NOTE | 2023-11-27 10:52 | P.PNNP_ITS ---
Progress Note: A&P Assessment and Plan (1) End stage renal disease: Code(s): N18.6 - End stage renal disease Status: Chronic Assessment and Plan: * HD tomorrow * continue T/T/S schedule while hospitalized * follow electrolytes, volume status, and clearance (2) Altered mental status: Code(s): R41.82 - Altered mental status, unspecified Status: Acute Assessment and Plan: * clinical improvement noted * etiology not clear * CT of brain did not show any acute findings * Neurology recommendations noted * follow mental status (3) Abscess of skin of neck: Code(s): L02.11 - Cutaneous abscess of neck Status: Acute Assessment and Plan: * as noted on exam * several cystic lesions localized to his posterior neck * one of these lesions is open and draining * follow culture data * on IV antibiotics * General Surgery following (4) Hypertension: Qualifiers: Hypertension type: primary hypertension Qualified Code(s): I10 - Essential (primary) hypertension Code(s): I10 - Essential (primary) hypertension Status: Chronic Assessment and Plan: * doing better * back on home medications * follow trend of hemodynamics (5) Anemia: Code(s): D64.9 - Anemia, unspecified Status: Chronic Assessment and Plan: * due to ESRD * Epogen with HD * follow trend of H/H (6) Type 2 diabetes mellitus: Code(s): E11.9 - Type 2 diabetes mellitus without complications Status: Chronic Assessment and Plan: * follow accu-cheks * glycemic control per hospitalists Will continue to follow. Subjective Date/time seen: 11/27/23 10:52 Interval history: Follow-up for end stage renal disease on hemodialysis. Mentation continues to improve if not stabilize; tolerated dialysis treatment yesterday without any issues or problems; no apparent distress voiced at the time of my visit; no issues/events overnight or earlier this morning. Exam Narrative: General: WD/WN male in NAD Heart: normal S1 and S2; no rub Lungs: clear anteriorly; decreased at bases Abdomen: soft, nontender, nondistended, positive bowel sounds Extremities: no cyanosis or clubbing; no edema; s/p L BKA and R AKA Skin: no rash Objective Data Vital Signs Vital Signs: Vital Signs Temp Pulse Resp BP Pulse Ox O2 Del Method 11/27/23 10:08 96.5 F L 78 18 174/62 H 99 Room Air 11/27/23 09:25 78 11/26/23 23:45 163/60 H 11/26/23 23:44 97.5 F L 77 18 163/60 H 96 11/26/23 20:00 Room Air 11/26/23 20:21 97.6 F 82 18 150/59 H 100 11/26/23 18:56 98.2 F 82 18 155/78 H 11/26/23 18:56 82 145/75 H 11/26/23 18:30 81 135/72 11/26/23 18:15 81 144/65 H 11/26/23 18:00 81 144/69 H 11/26/23 17:45 79 148/67 H 11/26/23 17:30 78 148/63 H 11/26/23 17:15 76 147/64 H 11/26/23 17:00 76 145/61 H 11/26/23 16:45 73 130/57 L 11/26/23 16:30 74 138/62 11/26/23 16:15 74 142/65 H 11/26/23 16:00 73 143/64 H Intake/Output Intake/Output: Intake & Output 11/24/23 11/25/23 11/26/23
[2023-11-27] MEDS: ISOSORBIDE DINITRATE 20 MG TABLET PO ×3 (11:21→18:39)
[2023-11-27 11:23] LABS: Glucose Point of Care 139 mg/dl (65-105)
--- NOTE | 2023-11-27 11:30 | P.CDI_ITS ---
CDI Query Clarification Request BMI 27.3 Nutritional Diagnostic Statement Severe protein calorie malnutrition related to chronic end stage renal disease as evidenced by intakes <75% needs > 1 month; weight loss -22%/1 year; moderate muscle wasting and fat loss. Please refer to the comprehensive nutrition assessment for further information. Please clarify severity of protein calorie malnutrition if known: * Mild * Moderate * Severe * Other/ Unspecified <Ines Barrios RN - Last Filed: 11/27/23 11:36> Clarified Diagnosis Clarified Diagnosis: moderate protein calore malnutrition <Alexandra Wilder MD - Last Filed: 11/27/23 14:34>
--- NOTE | 2023-11-27 13:26 | PM.IMPN ---
Progress Note: A&P Assessment and Plan (1) Altered mental status: Code(s): R41.82 - Altered mental status, unspecified Status: Acute (2) Elevated troponin: Code(s): R79.89 - Other specified abnormal findings of blood chemistry Status: Acute (3) Abscess of skin of neck: Code(s): L02.11 - Cutaneous abscess of neck Status: Acute (4) Left arm swelling: Code(s): M79.89 - Other specified soft tissue disorders Status: Chronic (5) End-stage renal disease on hemodialysis: Code(s): N18.6 - End stage renal disease; Z99.2 - Dependence on renal dialysis Status: Acute (6) Mediastinal mass: Code(s): J98.59 - Other diseases of mediastinum, not elsewhere classified Status: Acute (7) Anemia in chronic kidney disease: Code(s): N18.9 - Chronic kidney disease, unspecified; D63.1 - Anemia in chronic kidney disease Status: Acute (8) Type 2 diabetes mellitus: Code(s): E11.9 - Type 2 diabetes mellitus without complications Status: Acute (9) Hypertension: Qualifiers: Hypertension type: primary hypertension Qualified Code(s): I10 - Essential (primary) hypertension Code(s): I10 - Essential (primary) hypertension Status: Acute (10) Peripheral vascular disease: Code(s): I73.9 - Peripheral vascular disease, unspecified Status: Acute (11) Chronic anticoagulation: Code(s): Z79.01 - correction (current) use of anticoagulants Status: Acute Plan The patient presented to the emergency department for evaluation of irritation at dialysis port in addition to a change in mental status as detailed in HPI. Labs, imaging, EKG, and all reports were personally reviewed. Dialysis port is in working order and he is currently undergoing dialysis. Etiology of his change in mental status is not entirely clear. Brain CT did not show any acute findings however stroke certainly is a possibility and brain MRI has been ordered. There are no meningeal signs on exam to suggest meningitis however if his symptoms do not improve and LP may be appropriate. Does not seem to be in a postictal state. He received several doses of IV lorazepam in the ED which may be contributing. Continue to monitor neurologic checks. He has several, shallow cystic lesions on his posterior neck and has been started on clindamycin pending wound culture. One of these lesions is open and draining however the others may need to be open thus will consult General surgery. Wound nurse has also been consulted. Regarding the elevated troponin, they have been flat and are not likely to be indicative of acute coronary syndrome. There is swelling in both upper extremities but on CT scan he has subcutaneous edema at the left axilla which raise the possibility of occlusion or stenosis and some of the veins draining that arm thus will obtain upper extremity venous Doppler ultrasounds. He is on Eliquis which will be continued. CT scan also shows an indeterminate 2.1 x 1.9 cm anterior mediastinal mass. He has apparently been at [facility] several times recently and records have been requested to see if he has had any chest CTs or other imaging for comparison. Nephrology has been consulted for dialysis. Surgery and neurology rounding continue iv abx for abscess in neck increase seizure medications Pt much improved with iv keppra and iv clindamycin Follow BC wound culture and urine culture Creat is 4.5 nephrology on board Change iv keppra to oral keppra Continue to watch pt over the weekend Continue iv clindamycin for neck abscess Dc on thursday awaiting culture report MRI cancelled unclear about metal in his body Subjective Date/time seen: 11/27/23 13:26 Interval history: 53-year-old male with history of stroke, epilepsy, end-stage renal disease on hemodialysis, hypertension, hyperlipidemia, anemia, type 2 diabetes mellitus, gastroesophageal reflux dis
[2023-11-27 14:08] VITALS: BP 174/62; PULSE 78; RESP 18; TEMP 35.8; O2SAT 99
[2023-11-27] MEDS: HEPARIN SOD/D5W 100 UNITS/ML 25,000 UNITS/250 ML BAG 10 UNITS IV CONT (15:24)
--- NOTE | 2023-11-27 15:25 | WPDNEUROPN ---
Progress Note: A&P Assessment and Plan (1) Diabetes: Code(s): E11.9 - Type 2 diabetes mellitus without complications Status: Acute (2) Left arm swelling: Code(s): M79.89 - Other specified soft tissue disorders Status: Chronic (3) End stage renal disease: Code(s): N18.6 - End stage renal disease Status: Chronic (4) History of stroke: Code(s): Z86.73 - Personal history of transient ischemic attack (TIA), and cerebral infarction without residual deficits Status: Acute (5) Seizure disorder: Code(s): G40.909 - Epilepsy, unspecified, not intractable, without status epilepticus Status: Acute Plan I would suggest MRI of the brain as I discussed with Dr. Marvin also. He is on Keppra and currently undergoing hemodialysis for his Chronic kidney disease. Subjective Date/time seen: 11/27/23 15:25 Interval history: The patient has history of agitation thought to be possible seizure-like activity on admission. Patient has chronic kidney disease on hemodialysis. He has bilateral amputations the lower limbs. Also history of peripheral vascular disease. Now on Keppra. He has swelling of both upper limbs and the venous Doppler study shows lymph nodes possible lymphoma and thrombosis of internal jugular vein. These are being followed by the hospitalist team. Exam Narrative: Alert, no aphasia dysarthria. He is complaining of pain in his rectal area. Swelling of both upper limbs. Grain of single testing are intact. Amputation of both lower limbs were noted. No additional findings were seen. No involuntary movements are noted. Objective Data Vital Signs Vital Signs: Vital Signs - 24 hr 11/26/23 15:30 11/26/23 15:45 11/26/23 16:00 Temperature Pulse Rate 69 70 73 Respiratory Rate Blood Pressure 138/67 143/73 H 143/64 H Pulse Oximetry Oxygen Delivery 11/26/23 16:15 11/26/23 16:30 11/26/23 16:45 Temperature Pulse Rate 74 74 73 Respiratory Rate Blood Pressure 142/65 H 138/62 130/57 L Pulse Oximetry Oxygen Delivery 11/26/23 17:00 11/26/23 17:15 11/26/23 17:30 Temperature Pulse Rate 76 76 78 Respiratory Rate Blood Pressure 145/61 H 147/64 H 148/63 H Pulse Oximetry Oxygen Delivery 11/26/23 17:45 04/18/24 18:00 11/26/23 18:15 Temperature Pulse Rate 79 81 81 Respiratory Rate Blood Pressure 148/67 H 144/69 H 144/65 H Pulse Oximetry Oxygen Delivery 11/26/23 18:30 11/26/23 18:56 11/26/23 18:56 Temperature 36.8 C Pulse Rate 81 82 82 Respiratory Rate 18 Blood Pressure 135/72 145/75 H 155/78 H Pulse Oximetry Oxygen Delivery 11/26/23 20:21 11/26/23 20:00 11/26/23 23:44 Temperature 36.4 C 36.4 C L Pulse Rate 82 77 Respiratory Rate 18 18 Blood Pressure 150/59 H 163/60 H Pulse Oximetry 100 96 Oxygen Delivery Room Air 11/26/23 23:45 11/27/23 09:25 11/27/23 08:00 Temperature Pulse Rate 78 Respiratory Rate Blood Pressure 163/60 H Pulse Oximetry Oxygen Delivery Room Air 11/27/23 14:08 Temperature 35.8 C L Pulse Rate 78 Respiratory Rate 18 Blood Pressure 174/62 H Pulse Oximetry 99 Oxygen Delivery Intake/Output Intake/Output: Intake & Output 11/24/23 11/25/23 11/26/23 11/27/23 23:59 23:59 23:59 23:59 Intake Total 1052 1133 1138 1236 Output Total 3000 3100 Balance -1948 1133 -1962 1236 Meds/Results Medications: Active Medications Generic Name Dose Route Start Last Admin Trade Name Freq PRN Reason Stop Dose Admin Acetaminophen 650 mg 11/24/23 21:10 11/27/23 09:26 Acetaminophen 325 Mg Tablet PO 650 mg Q6H PRN Administration Mild Pain (1-3) or Fever Atorvastatin Calcium 20 mg 11/24/23 21:25 11/26/23 23:29 Atorvastatin 20 Mg Tablet PO 20 mg HS AZALEA Administration Bupropion HCl 150 mg 11/25/23 09:00 11/27/23 09:26 Bupropion Hcl Sr (12 Hr) 150 Mg Tab PO 150 mg Q12HR AZALEA Administra
[2023-11-27 15:36] LABS: Basophils Percent Auto 0.7 % (0.2-1.2); Eosinophils Absolute Auto 0.2 K/mm3 (0-0.3); Eosinophils Percent Auto 3.6 % (0-4.4); Hematocrit 35.5 % (42.0-52.0); Hemoglobin 11.1 g/dL (14.0-18.0); Immature Granulocyte Absolute 0.01 K/mm3 (0.00-0.031); Immature Granulocyte Percent A 0.2 % (0-0.5); Lymphocytes Absolute Auto 0.98 K/mm3 (0.9-3.2); Lymphocytes Percent Auto 17.4 % (18.3-44.2); Mean Corpuscular HGB Conc 31.3 g/dl (32-36); Mean Corpuscular Hemoglobin 28.3 pg (26-34); Mean Corpuscular Volume 90.6 fl (80-100); Mean Platelet Volume 11.5 fl (7.4-10.4); Monocytes Absolute Auto 0.7 K/mm3 (0.1-0.6); Monocytes Percent Auto 11.6 % (2.6-8.5); Neutrophils Absolute Auto 3.7 K/mm3 (1.3-6.7); Neutrophils Percent Auto 66.5 % (45.5-73.1); Platelet Count Result 248 k/mm3 (150-375); Red Blood Count 3.92 M/mm3 (4.6-6.20); Red Cell Distribution Width 14.1 % (11.5-14.5); White Blood Count 5.6 K/mm3 (4.5-10.0)
[2023-11-27 15:44] LABS: Prothrombin Time 14.1 Seconds (11.1-14.7)
[2023-11-27 15:45] LABS: Partial Thromboplastin Time 29.3 Seconds (22.3-36.8)
--- NOTE | 2023-11-27 16:26 | PDONCCN ---
HPI - Date of Consult Date/Time: 11/27/23 16:26 Requesting Physician: Katerina Conner MD Primary Care Provider: Breezy Reddy, - Consult Narrative Reason for consult: Lymphadenopathy and bilateral internal jugular thrombosis Narrative: Clarence Morillo is a 53 year old male with history of end-stage renal disease along with history of hypertension, hyperlipidemia, type 2 diabetes and anemia [facility] with [facility] status changes. He was also having some irritation at his dialysis port. 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 He denies any night sweats fever chills and recent weight loss. Denies any previous history of malignancy. He quit smoking more than 1 year ago. Patient had left-sided BKA and right-sided AKA done previously. Denies any other new complaints. Review of Systems - Review of Systems All systems reviewed & are unremarkable except as noted in HPI and bel - Neurologic Reports confusion [facility] Medical History: Medical History (Last Updated 11/27/23 @ 15:28 by Sixto Wynn MD) Anemia in chronic kidney disease Cerebrovascular accident Chronic anticoagulation Depression End-stage renal disease on hemodialysis Epilepsy Gastroesophageal reflux disease Hyperlipidemia Hypertension Peripheral vascular disease Seizure disorder Type 2 diabetes mellitus Surgical History: Surgical History (Last Reviewed 11/25/23 @ 11:06 by Otis Boucher MD) History of left below knee amputation History of right above knee amputation Family History: Family History (Last Reviewed 11/25/23 @ 13:22 by ARACELIS Jackson) Other Unknown family medical history - Social History Social History: Social History (Last Reviewed 11/25/23 @ 13:23 by ARACELIS Jackson) Alcohol Use: Alcohol intake: unknown Substance Use: Substance use: unknown Others: Spiritual care concerns: No Smoking Status: Smoking status: Unknown if ever smoked Social Determinants of Health: Has the Lack of Transportation Kept You From Medical Appointments or From Getting Medications?: No Within the Past 12 Months, Were You Worried Whether Your Food Would Run Out Before You Got Money to Buy More?: Never True What is Your Housing Situation Today?: I Have Housing Are You Worried That in the Next 2 Months, You May Not Have Your Own Housing to Live In?: No Do You Have Trouble Paying Your Heating Or Electricity Bill?: No Do You Have Trouble Paying For Medicines?: No Are You Currently Unemployed and Looking for Work?: No Highest Level of Education Completed: Don't Know Do You Have Trouble With Childcare or the Care of a Family Member?: No Exam - Vital Signs Vital Signs - 24 hr 11/26/23 16:30 11/26/23 16:45 11/26/23 17:00 Temperature Pulse Rate 74 73 76 Respiratory Rate Blood Pressure 138/62 130/57 L 145/61 H Pulse Oximetry Oxygen Delivery 11/26/23 17:15 11/26/23 17:30 11/26/23 17:45 Temperature Pulse Rate 76 78 79 Respiratory Rate Blood Pressure 147/64 H 148/63 H 148/67 H Pulse Oximetry Oxygen Delivery 11/26/23 18:00 11/26/23 18:15 11/26/23 18:30 Temperature Pulse Rate 81 81 81 Respiratory Rate Blood Pressure 144/69 H 144/65 H 135/72 Pulse Oximetry Oxygen Delivery 11/26/23 18:56 11/26/23 18:56 11/26/23 20:21 Temperature 36.8 C 36.4 C Pulse Rate 82 82 82 Respiratory Rate 18 18 Blood Pressure 145/75 H 155/78 H 150/59 H Pulse Oximetry 100 Oxygen Delivery 11/26/23 20:00 11/26/23 23:44 11/26/23 23:45 Temperature 36.4 C L Pulse Rate 77 Respiratory Rate 18 Blood Pressure 163/60 H 163/60 H Pulse Oximetry 96 Oxygen Delivery Room Air
[2023-11-27 16:30] LABS: Glucose Point of Care 118 mg/dl (65-105)
[2023-11-27 18:39] VITALS: PULSE 75
[2023-11-27 18:48] VITALS: BP 179/79
[2023-11-27] MEDS: levETIRAcetam Tablet 250 MG, levETIRAcetam Tablet 500 MG 750 MG PO (20:50)
[2023-11-27] MEDS: traZODone HCL 50 MG TABLET PO (20:51)
[2023-11-27] MEDS: ATORVASTATIN 20 MG TABLET PO (20:51)
[2023-11-27] MEDS: DOXAZOSIN MESYLATE 2 MG TABLET PO (20:51)
[2023-11-27 21:23] LABS: Glucose Point of Care 118 mg/dl (65-105)
[2023-11-27 21:51] LABS: Partial Thromboplastin Time 40.2 Seconds (22.3-36.8)
[2023-11-27] MEDS: HEPARIN SOD/D5W 100 UNITS/ML 25,000 UNITS/250 ML BAG 12 UNITS IV CONT (22:25)
[2023-11-27] MEDS: HEPARIN SODIUM 5,000 UNITS/ML VIAL 4500 UNITS IV PUSH (22:27)
[2023-11-27 23:50] VITALS: BP 154/62; PULSE 80; RESP 14; TEMP 36.7; O2SAT 100
[2023-11-28] VITALS (23 sets, daily range): BP systolic 135–181; BP diastolic 45–85; PULSE 74–84; RESP 16–18; TEMP 36.2–37.1; O2SAT 96–100
[2023-11-28] MEDS: SODIUM CHLORIDE 0.9% IV 100 ML (00:46)
[2023-11-28] MEDS: CLINDAMYCIN 300 MG in DEXTROSE 5% IN WATER 50 ML 104 MG IVPB ×5 (00:46→23:40)
[2023-11-28] MEDS: polyethylene glycoL 3350 17 GM POWD.PACK PO (04:43)
[2023-11-28] MEDS: SIMETHICONE 125 MG CHEW TAB PO (05:22)
[2023-11-28 05:25] LABS: Basophils Absolute Auto 0.1 K/mm3 (0.0-0.1); Basophils Percent Auto 0.8 % (0.2-1.2); Eosinophils Absolute Auto 0.2 K/mm3 (0-0.3); Eosinophils Percent Auto 2.9 % (0-4.4); Hemoglobin 10.8 g/dL (14.0-18.0); Immature Granulocyte Absolute 0.02 K/mm3 (0.00-0.031); Immature Granulocyte Percent A 0.3 % (0-0.5); Lymphocytes Absolute Auto 1.24 K/mm3 (0.9-3.2); Lymphocytes Percent Auto 20.2 % (18.3-44.2); Mean Corpuscular HGB Conc 31.8 g/dl (32-36); Mean Corpuscular Hemoglobin 28.2 pg (26-34); Mean Corpuscular Volume 88.8 fl (80-100); Mean Platelet Volume 11.3 fl (7.4-10.4); Monocytes Absolute Auto 0.5 K/mm3 (0.1-0.6); Monocytes Percent Auto 8.3 % (2.6-8.5); Neutrophils Absolute Auto 4.1 K/mm3 (1.3-6.7); Neutrophils Percent Auto 67.5 % (45.5-73.1); Platelet Count Result 258 k/mm3 (150-375); Red Blood Count 3.83 M/mm3 (4.6-6.20); White Blood Count 6.1 K/mm3 (4.5-10.0)
[2023-11-28 05:38] LABS: Anion Gap 6 mmol/L (4-12); Blood Urea Nitrogen 27 mg/dL (9-20); Calcium 10.1 mg/dL (8.4-10.2); Carbon Dioxide 28 mmol/L (22-30); Chloride 96 mmol/L (98-107); Estimated CRCL calculation 9 ml/min; Estimated Glomerular Filt Rate 11; Glucose 123 mg/dL (65-110); Partial Thromboplastin Time 70.3 Seconds (22.3-36.8); Potassium 4.2 mmol/L (3.4-5.0); Sodium 130 mmol/L (137-145)
[2023-11-28] MEDS: HEPARIN SODIUM 5,000 UNITS/ML VIAL 2500 UNITS IV PUSH (06:24)
[2023-11-28] MEDS: HEPARIN SOD/D5W 100 UNITS/ML 25,000 UNITS/250 ML BAG 13 UNITS IV CONT ×2 (06:24→07:14)
[2023-11-28 07:15] LABS: Glucose Point of Care 137 mg/dl (65-105)
--- NOTE | 2023-11-28 12:12 | PM.PNNEP ---
Progress Note: A&P Assessment and Plan (1) End stage renal disease: Code(s): N18.6 - End stage renal disease Status: Chronic Assessment and Plan: HD underway currently. continue T/T/S schedule while hospitalized Will remove some fluid to keep volume status neutral Potassium and BUN under good control (2) Altered mental status: Code(s): R41.82 - Altered mental status, unspecified Status: Acute Assessment and Plan: clinical improvement noted etiology not clear CT of brain did not show any acute findings Neurology recommendations noted Interacting well. (3) Abscess of skin of neck: Code(s): L02.11 - Cutaneous abscess of neck Status: Acute Assessment and Plan: as noted on exam several cystic lesions localized to his posterior neck one of these lesions is open and draining Blood cultures negative. Wound culture showed Gram-positive cocci g stain, growth of skin jacqueline. on IV antibiotics General Surgery following (4) Hypertension: Qualifiers: Hypertension type: primary hypertension Qualified Code(s): I10 - Essential (primary) hypertension Code(s): I10 - Essential (primary) hypertension Status: Chronic Assessment and Plan: Blood pressure ranging from 1 30-170 today On doxazosin, hydralazine, labetalol, nifedipine, minoxidil. Will see how he does overnight after fluid has been (5) Anemia: Code(s): D64.9 - Anemia, unspecified Status: Chronic Assessment and Plan: due to ESRD Epogen with HD Hemoglobin target at 10.8 (6) Type 2 diabetes mellitus: Code(s): E11.9 - Type 2 diabetes mellitus without complications Status: Chronic Assessment and Plan: follow accu-cheks glycemic control per hospitalists Subjective Date/time seen: 11/28/23 12:12 Interval history: Patient is on dialysis and tolerating it well. He was seen at 11:55 a.m. Blood pressure about 140. We are removing some fluid. The patient is not having any cramps or low blood pressure Exam Narrative: General: WD/WN male in NAD Heart: normal S1 and S2; no rub or gallop Lungs: clear anteriorly; decreased at bases Abdomen: Bowel sounds positive nontender Extremities: no cyanosis or clubbing; no edema; s/p L BKA and R AKA Skin: no rash or subQ nodules Objective Data Vital Signs Vital Signs: Vital Signs - 24 hr 11/27/23 14:08 11/27/23 18:39 11/27/23 18:48 Temperature 96.5 F L Pulse Rate 78 75 Respiratory Rate 18 Blood Pressure 174/62 H 179/79 H Pulse Oximetry 99 Oxygen Delivery 11/27/23 23:50 11/27/23 20:00 11/28/23 05:38 Temperature 98.0 F 98.2 F Pulse Rate 80 79 Respiratory Rate 14 16 Blood Pressure 154/62 H 153/54 H Pulse Oximetry 100 96 Oxygen Delivery Room Air 11/28/23 08:36 11/28/23 08:43 11/28/23 09:00 Temperature 98.6 F Pulse Rate 75 75 75 Respiratory Rate 16 Blood Pressure 170/74 H 181/78 H 152/74 H Pulse Oximetry Oxygen Delivery 11/28/23 09:15 11/28/23 09:30 11/28/23 09:45 Temperature Pulse Rate 76 74 75 Respiratory Rate Blood Pressure 172/74 H 151/74 H 170/69 H Pulse Oximetry Oxygen Delivery 11/28/23 10:00 11/28/23 10:15 11/28/23 11:15 Temperature Pulse Rate 75 76 80 Respiratory Rate Blood Pressure 148/68 H 150/45 H 149/82 H Pulse Oximetry Oxygen Delivery 11/28/23 10:30 11/28/23 10:45 11/28/23 11:00 Temperature Pulse Rate 77 78 77 Respiratory Rate Blood Pressure 136/52 L 151/61 H 169/68 H Pulse Oximetry Oxygen Delivery Intake/Output Intake/Output: Intake & Output 11/25/23 11/26/23 11/27/23 11/28/23 23:59 23:59 23:59 23:59 Intake Total 1133 1138 2370.2 898.6 Output Total 3100 Balance 1133 -1962 2370.2 898.6 Meds/Results Medications: Active Medications Generic Name Dose Route Start Last Admin Trade Name Barneyq PRN Re
--- NOTE | 2023-11-28 12:12 | P.PNNP_ITS ---
Progress Note: A&P Assessment and Plan (1) End stage renal disease: Code(s): N18.6 - End stage renal disease Status: Chronic Assessment and Plan: * HD underway currently. * continue T/T/S schedule while hospitalized * Will remove some fluid to keep volume status neutral * Potassium and BUN under good control (2) Altered mental status: Code(s): R41.82 - Altered mental status, unspecified Status: Acute Assessment and Plan: * clinical improvement noted * etiology not clear * CT of brain did not show any acute findings * Neurology recommendations noted * Interacting well. (3) Abscess of skin of neck: Code(s): L02.11 - Cutaneous abscess of neck Status: Acute Assessment and Plan: * as noted on exam * several cystic lesions localized to his posterior neck * one of these lesions is open and draining * Blood cultures negative. * Wound culture showed Gram-positive cocci g stain, growth of skin jacqueline. * on IV antibiotics * General Surgery following (4) Hypertension: Qualifiers: Hypertension type: primary hypertension Qualified Code(s): I10 - Essential (primary) hypertension Code(s): I10 - Essential (primary) hypertension Status: Chronic Assessment and Plan: * Blood pressure ranging from 1 30-170 today * On doxazosin, hydralazine, labetalol, nifedipine, minoxidil. * Will see how he does overnight after fluid has been (5) Anemia: Code(s): D64.9 - Anemia, unspecified Status: Chronic Assessment and Plan: * due to ESRD * Epogen with HD * Hemoglobin target at 10.8 (6) Type 2 diabetes mellitus: Code(s): E11.9 - Type 2 diabetes mellitus without complications Status: Chronic Assessment and Plan: * follow accu-cheks * glycemic control per hospitalists Subjective Date/time seen: 11/28/23 12:12 Interval history: Patient is on dialysis and tolerating it well. He was seen at 11:55 a.m. Blood pressure about 140. We are removing some fluid. The patient is not having any cramps or low blood pressure Exam Narrative: General: WD/WN male in NAD Heart: normal S1 and S2; no rub or gallop Lungs: clear anteriorly; decreased at bases Abdomen: Bowel sounds positive nontender Extremities: no cyanosis or clubbing; no edema; s/p L BKA and R AKA Skin: no rash or subQ nodules Objective Data Vital Signs Vital Signs: Vital Signs - 24 hr 11/27/23 14:08 11/27/23 18:39 11/27/23 18:48 Temperature 96.5 F L Pulse Rate 78 75 Respiratory Rate 18 Blood Pressure 174/62 H 179/79 H Pulse Oximetry 99 Oxygen Delivery 11/27/23 23:50 11/27/23 20:00 11/28/23 05:38 Temperature 98.0 F 98.2 F Pulse Rate 80 79 Respiratory Rate 14 16 Blood Pressure 154/62 H 153/54 H Pulse Oximetry 100 96 Oxygen Delivery Room Air 11/28/23 08:36 11/28/23 08:43 11/28/23 09:00 Temperature 98.6 F Pulse Rate 75 75 75 Respiratory Rate 16 Blood Pressure 170/74 H 181/78 H 152/74 H Pulse Oximetry Oxygen Delivery 11/28/23 09:15 11/28/23 09:30 11/28/23 09:45 Temperature Pulse Rate 76 74 75
[2023-11-28 13:11] LABS: Partial Thromboplastin Time 112.5 Seconds (22.3-36.8)
[2023-11-28] MEDS: CALCIUM ACETATE 667 MG TABLET PO ×2 (13:35→18:21)
[2023-11-28] MEDS: levETIRAcetam Tablet 250 MG, levETIRAcetam Tablet 500 MG 750 MG PO ×2 (13:36→20:29)
[2023-11-28] MEDS: hydrALAZINE HCL 50 MG TABLET PO ×2 (13:37→18:21)
[2023-11-28] MEDS: LOSARTAN POTASSIUM 100 MG TABLET PO (13:38)
[2023-11-28] MEDS: CLOPIDOGREL BISULFATE 75 MG TABLET PO (13:38)
[2023-11-28] MEDS: PANTOPRAZOLE 40 MG TABLET PO (13:38)
[2023-11-28] MEDS: buPROPion HCL SR (12 HR) 150 MG TAB PO ×2 (13:38→20:29)
[2023-11-28] MEDS: ACETAMINOPHEN 325 MG TABLET 650 MG PO (13:38)
[2023-11-28] MEDS: minoxidiL 2.5 MG TABLET PO ×2 (13:39→20:29)
[2023-11-28] MEDS: NIFEdipine 30 MG TAB.ER.24 90 MG PO (13:39)
[2023-11-28] MEDS: LORazepam (*CRX) 0.5 MG TABLET PO ×2 (13:39→20:29)
[2023-11-28] MEDS: ISOSORBIDE DINITRATE 20 MG TABLET PO ×2 (13:39→18:21)
[2023-11-28] MEDS: LABETALOL HCL 100 MG TABLET 300 MG PO ×2 (13:39→18:21)
--- NOTE | 2023-11-28 14:49 | PM.IMPN ---
Progress Note: A&P Assessment and Plan (1) Altered mental status: Code(s): R41.82 - Altered mental status, unspecified Status: Acute (2) Elevated troponin: Code(s): R79.89 - Other specified abnormal findings of blood chemistry Status: Acute (3) Abscess of skin of neck: Code(s): L02.11 - Cutaneous abscess of neck Status: Acute (4) Left arm swelling: Code(s): M79.89 - Other specified soft tissue disorders Status: Chronic (5) End-stage renal disease on hemodialysis: Code(s): N18.6 - End stage renal disease; Z99.2 - Dependence on renal dialysis Status: Acute (6) Mediastinal mass: Code(s): J98.59 - Other diseases of mediastinum, not elsewhere classified Status: Acute (7) Anemia in chronic kidney disease: Code(s): N18.9 - Chronic kidney disease, unspecified; D63.1 - Anemia in chronic kidney disease Status: Acute (8) Type 2 diabetes mellitus: Code(s): E11.9 - Type 2 diabetes mellitus without complications Status: Chronic (9) Hypertension: Qualifiers: Hypertension type: primary hypertension Qualified Code(s): I10 - Essential (primary) hypertension Code(s): I10 - Essential (primary) hypertension Status: Chronic (10) Peripheral vascular disease: Code(s): I73.9 - Peripheral vascular disease, unspecified Status: Acute (11) Chronic anticoagulation: Code(s): 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 He has been increasingly confused restless and agitated since last evening. He was sent as is staff at his nursing facility with concern that he pulled out his dialysis catheter as he has been messing with frequently the last several days. Also been seen at [facility] 2 times in the past week for increasing hallucinations. Workup had reportedly been unremarkable and had been discharged back to shelter from there. In the ED was afebrile blood pressure was 1 point these to low 200s systolic. Laboratory evaluation revealed WBC count of 6.4 hemoglobin 11.7 BUN 38 creatinine of 8.3 calcium 10.7 phosphorus 4.8 total CK was 194 troponin 0.049. Influenza RSV COVID was negative. Brain CT and chest x-ray were with the acute findings. CT of the head and neck showed no large vessel occlusion or critical stenosis. Ammonia less than 9 CT neck reviewed small loculated fluid collection at the posterior base of the neck with some inflammatory stranding suggesting abscess is suspicious for hidradenitis on examination 2.1 x 1.9 cm anterior mediastinal mass with differential to include enlarged lymph nodes C-reactive metastatic or lymphoma thymoma [place] and subcutaneous edema at the left axilla with multiple collateral vessels suggesting possibility of occlusion or stenosis of veins draining the left upper extremity. 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 There is also 3.7 x 2.3 cm aneurysm arising from left. Been started on IV heparin General surgery has been consulted and IV antibiotics has been started. On clindamycin IV currently cultures been negative For possible postictal status neurology was consulted and was started on IV Keppra which has been switched to oral now MRI brain could not be done due to metal in his body until further investigation he is getting brain MRI today. Nephrology on board for inpatient
[2023-11-28 16:45] LABS: Glucose Point of Care 127 mg/dl (65-105)
[2023-11-28] MEDS: HEPARIN SOD/D5W 100 UNITS/ML 25,000 UNITS/250 ML BAG 12 UNITS IV CONT (18:23)
[2023-11-28 20:00] LABS: Partial Thromboplastin Time 54.1 Seconds (22.3-36.8)
[2023-11-28] MEDS: DOXAZOSIN MESYLATE 2 MG TABLET PO (20:29)
[2023-11-28] MEDS: traZODone HCL 50 MG TABLET PO (20:30)
[2023-11-28] MEDS: ATORVASTATIN 20 MG TABLET PO (20:30)
[2023-11-28 21:09] LABS: Glucose Point of Care 133 mg/dl (65-105)
[2023-11-28] MEDS: HEPARIN SODIUM 5,000 UNITS/ML VIAL 4500 UNITS IV PUSH (21:53)
[2023-11-29] MEDS: HEPARIN SOD/D5W 100 UNITS/ML 25,000 UNITS/250 ML BAG 14 UNITS IV CONT (04:07)
[2023-11-29] MEDS: CLINDAMYCIN 300 MG in DEXTROSE 5% IN WATER 50 ML 104 MG IVPB ×3 (05:34→20:50)
[2023-11-29 06:00] VITALS: BP 148/62; PULSE 78; RESP 20; TEMP 36.3; O2SAT 100
[2023-11-29 06:28] LABS: Basophils Absolute Auto 0.1 K/mm3 (0.0-0.1); Basophils Percent Auto 1.2 % (0.2-1.2); Eosinophils Absolute Auto 0.1 K/mm3 (0-0.3); Eosinophils Percent Auto 2.4 % (0-4.4); Hematocrit 34.6 % (42.0-52.0); Hemoglobin 10.9 g/dL (14.0-18.0); Immature Granulocyte Absolute 0.01 K/mm3 (0.00-0.031); Immature Granulocyte Percent A 0.2 % (0-0.5); Lymphocytes Absolute Auto 1.54 K/mm3 (0.9-3.2); Mean Corpuscular HGB Conc 31.5 g/dl (32-36); Mean Corpuscular Hemoglobin 28.4 pg (26-34); Mean Corpuscular Volume 90.1 fl (80-100); Mean Platelet Volume 11.8 fl (7.4-10.4); Monocytes Absolute Auto 0.5 K/mm3 (0.1-0.6); Monocytes Percent Auto 10.9 % (2.6-8.5); Neutrophils Absolute Auto 2.7 K/mm3 (1.3-6.7); Neutrophils Percent Auto 54.3 % (45.5-73.1); Platelet Count Result 233 k/mm3 (150-375); Red Blood Count 3.84 M/mm3 (4.6-6.20); Red Cell Distribution Width 13.9 % (11.5-14.5)
[2023-11-29 06:40] LABS: Alanine Aminotransferase 21 U/L (6-50); Albumin Level 3.8 g/dL (3.5-5.1); Alkaline Phosphatase 68 U/L (38-126); Anion Gap 8 mmol/L (4-12); Aspartate Amino Transferase 38 U/L (17-59); Bilirubin,Total 0.7 mg/dL (0.2-1.3); Blood Urea Nitrogen 17 mg/dL (9-20); Carbon Dioxide 29 mmol/L (22-30); Chloride 99 mmol/L (98-107); Estimated CRCL calculation 13 ml/min; Estimated Glomerular Filt Rate 17; Glucose 94 mg/dL (65-110); Magnesium 2.4 mg/dL (1.6-2.3); Phosphorus 3.6 mg/dL (2.5-4.5); Sodium 136 mmol/L (137-145)
[2023-11-29 06:42] LABS: Partial Thromboplastin Time 77.5 Seconds (22.3-36.8)
--- NOTE | 2023-11-29 06:47 | PC.NURSE ---
PTT therapeutic. no change in rate
[2023-11-29 07:28] LABS: Glucose Point of Care 98 mg/dl (65-105)
[2023-11-29] MEDS: buPROPion HCL SR (12 HR) 150 MG TAB PO ×2 (09:40→20:50)
[2023-11-29] MEDS: LOSARTAN POTASSIUM 100 MG TABLET PO (09:40)
[2023-11-29] MEDS: ISOSORBIDE DINITRATE 20 MG TABLET PO ×3 (09:40→17:20)
[2023-11-29 09:41] VITALS: PULSE 81
[2023-11-29] MEDS: CALCIUM ACETATE 667 MG TABLET PO ×3 (09:41→17:20)
[2023-11-29] MEDS: NIFEdipine 30 MG TAB.ER.24 90 MG PO (09:41)
[2023-11-29] MEDS: LORazepam (*CRX) 0.5 MG TABLET PO (09:41)
[2023-11-29] MEDS: levETIRAcetam Tablet 250 MG, levETIRAcetam Tablet 500 MG 750 MG PO ×2 (09:41→20:49)
[2023-11-29] MEDS: PANTOPRAZOLE 40 MG TABLET PO (09:41)
[2023-11-29] MEDS: minoxidiL 2.5 MG TABLET PO ×2 (09:41→20:50)
[2023-11-29] MEDS: LABETALOL HCL 100 MG TABLET 300 MG PO ×2 (09:41→17:20)
[2023-11-29] MEDS: ACETAMINOPHEN 325 MG TABLET 650 MG PO ×2 (09:41→17:19)
[2023-11-29] MEDS: CLOPIDOGREL BISULFATE 75 MG TABLET PO (09:42)
[2023-11-29 11:20] LABS: Glucose Point of Care 132 mg/dl (65-105)
--- NOTE | 2023-11-29 11:48 | PM.IMPN ---
Progress Note: A&P Assessment and Plan (1) Altered mental status: Code(s): R41.82 - Altered mental status, unspecified Status: Acute (2) Elevated troponin: Code(s): R79.89 - Other specified abnormal findings of blood chemistry Status: Acute (3) Abscess of skin of neck: Code(s): L02.11 - Cutaneous abscess of neck Status: Acute (4) Left arm swelling: Code(s): M79.89 - Other specified soft tissue disorders Status: Chronic (5) End-stage renal disease on hemodialysis: Code(s): N18.6 - End stage renal disease; Z99.2 - Dependence on renal dialysis Status: Acute (6) Mediastinal mass: Code(s): J98.59 - Other diseases of mediastinum, not elsewhere classified Status: Acute (7) Anemia in chronic kidney disease: Code(s): N18.9 - Chronic kidney disease, unspecified; D63.1 - Anemia in chronic kidney disease Status: Acute (8) Type 2 diabetes mellitus: Code(s): E11.9 - Type 2 diabetes mellitus without complications Status: Chronic (9) Hypertension: Qualifiers: Hypertension type: primary hypertension Qualified Code(s): I10 - Essential (primary) hypertension Code(s): I10 - Essential (primary) hypertension Status: Chronic (10) Peripheral vascular disease: Code(s): I73.9 - Peripheral vascular disease, unspecified Status: Acute (11) Chronic anticoagulation: Code(s): 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 He has been increasingly confused restless and agitated since last evening. He was sent as is staff at his nursing facility with concern that he pulled out his dialysis catheter as he has been messing with frequently the last several days. Also been seen at [facility] 2 times in the past week for increasing hallucinations. Workup had reportedly been unremarkable and had [facility]. In the ED was afebrile blood pressure was 1 point these to low 200s systolic. Laboratory evaluation revealed WBC count of 6.4 hemoglobin 11.7 BUN 38 creatinine of 8.3 calcium 10.7 phosphorus 4.8 total CK was 194 troponin 0.049. Influenza RSV COVID was negative. Brain CT and chest x-ray were with the acute findings. CT of the head and neck showed no large vessel occlusion or critical stenosis. Ammonia less than 9 CT neck reviewed small loculated fluid collection at the posterior base of the neck with some inflammatory stranding suggesting abscess is suspicious for hidradenitis on examination 2.1 x 1.9 cm anterior mediastinal mass with differential to include enlarged lymph nodes C-reactive metastatic or lymphoma thymoma [place] and subcutaneous edema at the left axilla with multiple collateral vessels suggesting possibility of occlusion or stenosis of veins draining the left upper extremity. 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 There is also 3.7 x 2.3 cm aneurysm arising from left. Been started on IV heparin. Had been on Eliquis prior to this states without interruption. Will recheck venous duplex unclear if these thrombosis are related to surrounding infection/inflammation for which no definitive anticoagulation change will be suggested. Will also touch base with material assistant in a.m. regarding switching him back to Eliquis. Will keep him on IV heparin for now General surgery has been consu
[2023-11-29 14:00] VITALS: BP 117/53; PULSE 69; RESP 16; TEMP 36.2; O2SAT 99
--- NOTE | 2023-11-29 14:14 | P.PNNP_ITS ---
Progress Note: A&P Assessment and Plan (1) End stage renal disease: Code(s): N18.6 - End stage renal disease Status: Chronic Assessment and Plan: * HD underway currently. * continue T/T/S schedule while hospitalized * Continue removing fluid as needed. * Potassium and urine nitrogen are fine. (2) Altered mental status: Code(s): R41.82 - Altered mental status, unspecified Status: Acute Assessment and Plan: * clinical improvement noted * He seems at baseline (3) Abscess of skin of neck: Code(s): L02.11 - Cutaneous abscess of neck Status: Acute Assessment and Plan: * as noted on exam * several cystic lesions localized to his posterior neck * one of these lesions is open and draining * Blood cultures negative. * Wound culture showed Gram-positive cocci g stain, growth of skin jacqueline. * on IV antibiotics * General Surgery following (4) Hypertension: Qualifiers: Hypertension type: primary hypertension Qualified Code(s): I10 - Essential (primary) hypertension Code(s): I10 - Essential (primary) hypertension Status: Chronic Assessment and Plan: * Blood pressure ranging from 140-180 today. Right now the blood pressure is 148/62. * Reassess blood pressure tomorrow * On doxazosin, hydralazine, labetalol, nifedipine, minoxidil. (5) Anemia: Code(s): D64.9 - Anemia, unspecified Status: Chronic Assessment and Plan: * due to ESRD * Epogen with HD * Hemoglobin target at 10.8 (6) Type 2 diabetes mellitus: Code(s): E11.9 - Type 2 diabetes mellitus without complications Status: Chronic Assessment and Plan: * follow accu-cheks * glycemic control per hospitalists Subjective Date/time seen: 11/29/23 14:14 Interval history: Alert. Feels okay. No chest pain or shortness of breath. Yesterday's dialysis went well. Exam Narrative: General: WD/WN male in NAD Heart: normal S1 and S2; no rub or gallop Lungs: Clear lung Abdomen: Bowel sounds positive nontender Extremities: no cyanosis or clubbing; no edema; s/p L BKA and R AKA Skin: no rash Objective Data Vital Signs Vital Signs: Vital Signs - 24 hr 11/28/23 18:21 11/28/23 18:20 11/28/23 21:16 Temperature 97.1 F L Pulse Rate 81 79 Respiratory Rate 18 Blood Pressure 141/70 H 181/61 H Pulse Oximetry 100 Oxygen Delivery 11/28/23 20:00 11/29/23 06:00 11/29/23 09:41 Temperature 97.3 F L Pulse Rate 78 81 Respiratory Rate 20 Blood Pressure 148/62 H Pulse Oximetry 100 Oxygen Delivery Room Air 11/29/23 09:40 Temperature Pulse Rate Respiratory Rate Blood Pressure Pulse Oximetry Oxygen Delivery Room Air Intake/Output Intake/Output: Intake & Output 11/26/23 11/27/23 11/28/23 11/29/23 23:59 23:59 23:59 23:59 Intake Total 1138 2370.2 1686.7 416.2 Output Total 3100 3000 Balance -1962 2370.2 -1313.3 416.2 Meds/Results Medications: Active Medications Generic Name Do
--- NOTE | 2023-11-29 14:14 | PM.PNNEP ---
Progress Note: A&P Assessment and Plan (1) End stage renal disease: Code(s): N18.6 - End stage renal disease Status: Chronic Assessment and Plan: HD underway currently. continue T/T/S schedule while hospitalized Continue removing fluid as needed. Potassium and urine nitrogen are fine. (2) Altered mental status: Code(s): R41.82 - Altered mental status, unspecified Status: Acute Assessment and Plan: clinical improvement noted He seems at baseline (3) Abscess of skin of neck: Code(s): L02.11 - Cutaneous abscess of neck Status: Acute Assessment and Plan: as noted on exam several cystic lesions localized to his posterior neck one of these lesions is open and draining Blood cultures negative. Wound culture showed Gram-positive cocci g stain, growth of skin jacqueline. on IV antibiotics General Surgery following (4) Hypertension: Qualifiers: Hypertension type: primary hypertension Qualified Code(s): I10 - Essential (primary) hypertension Code(s): I10 - Essential (primary) hypertension Status: Chronic Assessment and Plan: Blood pressure ranging from 140-180 today. Right now the blood pressure is 148/62. Reassess blood pressure tomorrow On doxazosin, hydralazine, labetalol, nifedipine, minoxidil. (5) Anemia: Code(s): D64.9 - Anemia, unspecified Status: Chronic Assessment and Plan: due to ESRD Epogen with HD Hemoglobin target at 10.8 (6) Type 2 diabetes mellitus: Code(s): E11.9 - Type 2 diabetes mellitus without complications Status: Chronic Assessment and Plan: follow accu-cheks glycemic control per hospitalists Subjective Date/time seen: 11/29/23 14:14 Interval history: Alert. Feels okay. No chest pain or shortness of breath. Yesterday's dialysis went well. Exam Narrative: General: WD/WN male in NAD Heart: normal S1 and S2; no rub or gallop Lungs: Clear lung Abdomen: Bowel sounds positive nontender Extremities: no cyanosis or clubbing; no edema; s/p L BKA and R AKA Skin: no rash Objective Data Vital Signs Vital Signs: Vital Signs - 24 hr 11/28/23 18:21 11/28/23 18:20 11/28/23 21:16 Temperature 97.1 F L Pulse Rate 81 79 Respiratory Rate 18 Blood Pressure 141/70 H 181/61 H Pulse Oximetry 100 Oxygen Delivery 11/28/23 20:00 11/29/23 06:00 11/29/23 09:41 Temperature 97.3 F L Pulse Rate 78 81 Respiratory Rate 20 Blood Pressure 148/62 H Pulse Oximetry 100 Oxygen Delivery Room Air 11/29/23 09:40 Temperature Pulse Rate Respiratory Rate Blood Pressure Pulse Oximetry Oxygen Delivery Room Air Intake/Output Intake/Output: Intake & Output 11/26/23 11/27/23 11/28/23 11/29/23 23:59 23:59 23:59 23:59 Intake Total 1138 2370.2 1686.7 416.2 Output Total 3100 3000 Balance -1962 2370.2 -1313.3 416.2 Meds/Results Medications: Active Medications Generic Name Dose Route Start Last Admin Trade Name Freq PRN Reason Stop Dose Admin Acetaminophen 650 mg 11/24/23 21:10 11/29/23 09:41 Acetaminophen 325 Mg Tablet PO 650 mg Q6H PRN Administration Mild Pain (1-3) or Fever Atorvastatin Calcium 20 mg 11/24/23 21:25 11/28/23 20:30 Atorvastatin 20 Mg Tablet PO 20 mg HS AZALEA Administration Bupropion HCl 150 mg 11/25/23 09:00 11/29/23 09:40 Bupropion Hcl Sr (12 Hr) 150 Mg Tab PO 150 mg Q12HR AZALEA Administration Calcitriol 0.25 mcg 11/25/23 09:00 11/27/23 09:32 Calcitriol 0.25 Mcg Capsule PO 0.25 mcg [id number] AZALEA Administration Calcium Acetate 667 mg 11/25/23 08:00 11/29/23 09:41 Calcium Acetate 667 Mg Tablet PO 667 mg TIDWM AZALEA Administration Clonidine HCl 0.2 mg 11/24/23 21:12 11/26/23 08:30 Clonidine Hcl 0.2 Mg Tablet PO 0.2 mg TID PRN Administration Hypertension (SBP > 175) Clopidogrel Dyanu
[2023-11-29] MEDS: hydrALAZINE HCL 50 MG TABLET PO ×2 (15:23→17:20)
[2023-11-29 16:37] LABS: Glucose Point of Care 112 mg/dl (65-105)
[2023-11-29 17:19] VITALS: BP 176/68
[2023-11-29 20:00] VITALS: PULSE 78; RESP 14; O2SAT 98
[2023-11-29 20:41] LABS: Glucose Point of Care 103 mg/dl (65-105)
[2023-11-29] MEDS: ATORVASTATIN 20 MG TABLET PO (20:49)
[2023-11-29] MEDS: DOXAZOSIN MESYLATE 2 MG TABLET PO (20:50)
[2023-11-29] MEDS: traZODone HCL 50 MG TABLET PO (20:50)
[2023-11-29 20:57] VITALS: BP 174/69; PULSE 78; RESP 14; TEMP 36.7; O2SAT 98
[2023-11-29 21:16] LABS: Partial Thromboplastin Time 61.1 Seconds (22.3-36.8)
[2023-11-29] MEDS: HEPARIN SOD/D5W 100 UNITS/ML 25,000 UNITS/250 ML BAG 15 UNITS IV CONT (21:49)
[2023-11-29] MEDS: HEPARIN SODIUM 5,000 UNITS/ML VIAL 2500 UNITS IV PUSH (21:49)
[2023-11-30] MEDS: CLINDAMYCIN 300 MG in DEXTROSE 5% IN WATER 50 ML 104 MG IVPB ×2 (02:22→09:05)
[2023-11-30] MEDS: ACETAMINOPHEN 325 MG TABLET 650 MG PO ×2 (02:22→20:56)
[2023-11-30 04:36] LABS: Basophils Absolute Auto 0.1 K/mm3 (0.0-0.1); Eosinophils Absolute Auto 0.2 K/mm3 (0-0.3); Eosinophils Percent Auto 3.6 % (0-4.4); Hematocrit 33.7 % (42.0-52.0); Hemoglobin 10.4 g/dL (14.0-18.0); Immature Granulocyte Absolute 0.01 K/mm3 (0.00-0.031); Immature Granulocyte Percent A 0.2 % (0-0.5); Lymphocytes Absolute Auto 1.43 K/mm3 (0.9-3.2); Lymphocytes Percent Auto 28.5 % (18.3-44.2); Mean Corpuscular HGB Conc 30.9 g/dl (32-36); Mean Corpuscular Volume 90.8 fl (80-100); Mean Platelet Volume 11.6 fl (7.4-10.4); Monocytes Absolute Auto 0.5 K/mm3 (0.1-0.6); Monocytes Percent Auto 10.6 % (2.6-8.5); Neutrophils Absolute Auto 2.8 K/mm3 (1.3-6.7); Neutrophils Percent Auto 56.1 % (45.5-73.1); Platelet Count Result 232 k/mm3 (150-375); Red Blood Count 3.71 M/mm3 (4.6-6.20); Red Cell Distribution Width 14.1 % (11.5-14.5)
[2023-11-30 04:47] LABS: Partial Thromboplastin Time 42.2 Seconds (22.3-36.8)
[2023-11-30 05:00] LABS: Alanine Aminotransferase 25 U/L (6-50); Albumin Level 3.5 g/dL (3.5-5.1); Alkaline Phosphatase 60 U/L (38-126); Anion Gap 5 mmol/L (4-12); Aspartate Amino Transferase 42 U/L (17-59); Bilirubin,Total 0.7 mg/dL (0.2-1.3); Blood Urea Nitrogen 27 mg/dL (9-20); Carbon Dioxide 26 mmol/L (22-30); Chloride 97 mmol/L (98-107); Estimated CRCL calculation 12 ml/min; Estimated Glomerular Filt Rate 13; Glucose 93 mg/dL (65-110); Magnesium 2.4 mg/dL (1.6-2.3); Potassium 5.1 mmol/L (3.4-5.0); Sodium 128 mmol/L (137-145)
[2023-11-30 06:00] VITALS: BP 144/63; PULSE 70; RESP 16; TEMP 36.2; O2SAT 95
[2023-11-30] MEDS: HEPARIN SODIUM 5,000 UNITS/ML VIAL 4500 UNITS IV PUSH (06:25)
[2023-11-30 08:05] LABS: Glucose Point of Care 93 mg/dl (65-105)
[2023-11-30] MEDS: CLOPIDOGREL BISULFATE 75 MG TABLET PO (08:53)
[2023-11-30] MEDS: minoxidiL 2.5 MG TABLET PO ×2 (08:53→20:56)
[2023-11-30] MEDS: NIFEdipine 30 MG TAB.ER.24 90 MG PO (08:53)
[2023-11-30] MEDS: buPROPion HCL SR (12 HR) 150 MG TAB PO ×2 (08:53→20:56)
[2023-11-30] MEDS: levETIRAcetam Tablet 250 MG, levETIRAcetam Tablet 500 MG 750 MG PO ×2 (08:54→20:56)
[2023-11-30] MEDS: CALCIUM ACETATE 667 MG TABLET PO ×3 (08:54→18:23)
[2023-11-30] MEDS: PANTOPRAZOLE 40 MG TABLET PO (08:55)
[2023-11-30] MEDS: LOSARTAN POTASSIUM 100 MG TABLET PO (08:55)
[2023-11-30] MEDS: ISOSORBIDE DINITRATE 20 MG TABLET PO ×3 (08:55→18:24)
[2023-11-30] MEDS: hydrALAZINE HCL 50 MG TABLET PO ×3 (08:55→18:24)
[2023-11-30 08:56] VITALS: PULSE 76
[2023-11-30] MEDS: LABETALOL HCL 100 MG TABLET 300 MG PO ×2 (08:56→18:24)
[2023-11-30] MEDS: calcitrioL 0.25 MCG CAPSULE PO (08:59)
--- NOTE | 2023-11-30 10:57 | PM.PNNEP ---
Progress Note: A&P Assessment and Plan (1) End stage renal disease: Code(s): N18.6 - End stage renal disease Status: Chronic Assessment and Plan: HD tomorrow continue T/T/S schedule while hospitalized follow electrolytes, volume status, and clearance (2) Altered mental status: Code(s): R41.82 - Altered mental status, unspecified Status: Acute Assessment and Plan: clinical improvement noted if not resolved follow mentation (3) Abscess of skin of neck: Code(s): L02.11 - Cutaneous abscess of neck Status: Acute Assessment and Plan: as noted on exam several cystic lesions localized to his posterior neck one of these lesions is open and draining blood cultures negative. Wound culture results noted on IV antibiotics General Surgery following (4) Hypertension: Qualifiers: Hypertension type: primary hypertension Qualified Code(s): I10 - Essential (primary) hypertension Code(s): I10 - Essential (primary) hypertension Status: Chronic Assessment and Plan: reasonable control but can fluctuate currently on doxazosin, hydralazine, labetalol, nifedipine, and minoxidil follow trend of hemodynamics (5) Anemia: Code(s): D64.9 - Anemia, unspecified Status: Chronic Assessment and Plan: due to ESRD Epogen with HD follow trend of H/H (6) Type 2 diabetes mellitus: Code(s): E11.9 - Type 2 diabetes mellitus without complications Status: Chronic Assessment and Plan: follow accu-cheks glycemic control per hospitalists Will continue to follow. Subjective Date/time seen: 11/30/23 10:57 Interval history: Follow-up for end stage renal disease on hemodialysis. Chart reviewed since last seen -- no apparent distress noted at the time of my visit; no issues/events overnight or earlier this morning; feels neck lesions/wounds are not draining as much as before; no other acute complaints voiced. Exam Narrative: General: WD/WN male in NAD Heart: normal S1 and S2; no rub Lungs: clear bilaterally Abdomen: Bowel sounds positive nontender Extremities: no cyanosis or clubbing; no edema; s/p L BKA and R AKA Skin: no nodules Objective Data Vital Signs Vital Signs: Vital Signs Temp Pulse Resp BP Pulse Ox O2 Del Method 11/30/23 11:00 97.3 F L 72 12 147/76 H 98 11/30/23 08:00 Room Air 11/30/23 08:56 76 11/30/23 06:00 97.1 F L 70 16 144/63 H 95 11/29/23 20:00 78 14 98 Room Air 11/29/23 20:57 98.0 F 78 14 174/69 H 98 Intake/Output Intake/Output: Intake & Output 11/27/23 11/28/23 11/29/23 11/30/23 23:59 23:59 23:59 23:59 Intake Total 2370.2 1686.7 1263.1 761 Output Total 3000 Balance 2370.2 -1313.3 1263.1 761 Meds/Results Medications: Active Medications Generic Name Dose Route Start Last Admin Trade Name Freq PRN Reason Stop Dose Admin Acetaminophen 650 mg 11/24/23 21:10 11/30/23 02:22 Acetaminophen 325 Mg Tablet PO 650 mg Q6H PRN Administration Mild Pain (1-3) or Fever Apixaban 10 mg 11/30/23 21:00 Apixaban 5 Mg Tablet PO 12/07/23 20:59 Q12HR AZALEA Apixaban 5 mg 12/07/23 21:00 Apixaban 5 Mg Tablet PO Q12HR AZALEA Atorvastatin Calcium 20 mg 11/24/23 21:25 11/29/23 20:49 Atorvastatin 20 Mg Tablet PO 20 mg HS AZALEA Administration Bupropion HCl 150 mg 11/25/23 09:00 11/30/23 08:53 Bupropion Hcl Sr (12 Hr) 150 Mg Tab PO 150 mg Q12HR AZALEA Administration Calcitriol 0.25 mcg 11/25/23 09:00 11/30/23 08:59 Calcitriol 0.25 Mcg Capsule PO 0.25 mcg [id number]@0900 AZALEA Administration Calcium Acetate 667 mg 11/25/23 08:00 11/30/23 12:35 Calcium Acetate 667 Mg Tablet PO 667 mg TIDWM AZALEA Administration Clindamycin HCl 300 mg 11/30/23 13:30 11/30/23 13:01 Clindamycin Hcl 150 Mg Cap PO 300 mg Q6HR AZALEA Administration
--- NOTE | 2023-11-30 10:57 | P.PNNP_ITS ---
Progress Note: A&P Assessment and Plan (1) End stage renal disease: Code(s): N18.6 - End stage renal disease Status: Chronic Assessment and Plan: * HD tomorrow * continue T/T/S schedule while hospitalized * follow electrolytes, volume status, and clearance (2) Altered mental status: Code(s): R41.82 - Altered mental status, unspecified Status: Acute Assessment and Plan: * clinical improvement noted if not resolved * follow mentation (3) Abscess of skin of neck: Code(s): L02.11 - Cutaneous abscess of neck Status: Acute Assessment and Plan: * as noted on exam * several cystic lesions localized to his posterior neck * one of these lesions is open and draining * blood cultures negative. * Wound culture results noted * on IV antibiotics * General Surgery following (4) Hypertension: Qualifiers: Hypertension type: primary hypertension Qualified Code(s): I10 - Essential (primary) hypertension Code(s): I10 - Essential (primary) hypertension Status: Chronic Assessment and Plan: * reasonable control but can fluctuate * currently on doxazosin, hydralazine, labetalol, nifedipine, and minoxidil * follow trend of hemodynamics (5) Anemia: Code(s): D64.9 - Anemia, unspecified Status: Chronic Assessment and Plan: * due to ESRD * Epogen with HD * follow trend of H/H (6) Type 2 diabetes mellitus: Code(s): E11.9 - Type 2 diabetes mellitus without complications Status: Chronic Assessment and Plan: * follow accu-cheks * glycemic control per hospitalists Will continue to follow. Subjective Date/time seen: 11/30/23 10:57 Interval history: Follow-up for end stage renal disease on hemodialysis. Chart reviewed since last seen -- no apparent distress noted at the time of my visit; no issues/events overnight or earlier this morning; feels neck lesions/wounds are not draining as much as before; no other acute complaints voiced. Exam Narrative: General: WD/WN male in NAD Heart: normal S1 and S2; no rub Lungs: clear bilaterally Abdomen: Bowel sounds positive nontender Extremities: no cyanosis or clubbing; no edema; s/p L BKA and R AKA Skin: no nodules Objective Data Vital Signs Vital Signs: Vital Signs Temp Pulse Resp BP Pulse Ox O2 Del Method 11/30/23 11:00 97.3 F L 72 12 147/76 H 98 11/30/23 08:00 Room Air 11/30/23 08:56 76 11/30/23 06:00 97.1 F L 70 16 144/63 H 95 11/29/23 20:00 78 14 98 Room Air 11/29/23 20:57 98.0 F 78 14 174/69 H 98 Intake/Output Intake/Output: Intake & Output 11/27/23 11/28/23 11/29/23 11/30/23 23:59 23:59 23:59 23:59 Intake Total 2370.2 1686.7 1263.1 761 Output Total 3000 Balance 2370.2 -1313.3 1263.1 761 Meds/Results Medications: Active Medications Generic Name Dose Route Start Last Admin Trade Name Freq PRN Reason Stop Dose Admin Acetaminophen 650 mg 11/24/23 21:10 11/30/23 02:22 Acetaminophen 325 Mg Tablet PO 650 mg Q6H PRN Administration Mild Pain (1-3) or Fever Yulisa
[2023-11-30 11:20] LABS: Glucose Point of Care 102 mg/dl (65-105)
[2023-11-30 12:44] LABS: Partial Thromboplastin Time 90.9 Seconds (22.3-36.8)
[2023-11-30] MEDS: CLINDAMYCIN HCL 150 MG CAP 300 MG PO ×3 (13:01→23:44)
[2023-11-30 14:00] VITALS: BP 177/76; PULSE 72; RESP 12; TEMP 36.3; O2SAT 98
--- NOTE | 2023-11-30 15:41 | PM.IMPN ---
Progress Note: A&P Assessment and Plan (1) Altered mental status: Code(s): R41.82 - Altered mental status, unspecified Status: Acute (2) Elevated troponin: Code(s): R79.89 - Other specified abnormal findings of blood chemistry Status: Acute (3) Abscess of skin of neck: Code(s): L02.11 - Cutaneous abscess of neck Status: Acute (4) Left arm swelling: Code(s): M79.89 - Other specified soft tissue disorders Status: Chronic (5) End-stage renal disease on hemodialysis: Code(s): N18.6 - End stage renal disease; Z99.2 - Dependence on renal dialysis Status: Acute (6) Mediastinal mass: Code(s): J98.59 - Other diseases of mediastinum, not elsewhere classified Status: Acute (7) Anemia in chronic kidney disease: Code(s): N18.9 - Chronic kidney disease, unspecified; D63.1 - Anemia in chronic kidney disease Status: Acute (8) Type 2 diabetes mellitus: Code(s): E11.9 - Type 2 diabetes mellitus without complications Status: Chronic (9) Hypertension: Qualifiers: Hypertension type: primary hypertension Qualified Code(s): I10 - Essential (primary) hypertension Code(s): I10 - Essential (primary) hypertension Status: Chronic (10) Peripheral vascular disease: Code(s): I73.9 - Peripheral vascular disease, unspecified Status: Acute (11) Chronic anticoagulation: Code(s): Z79.01 - 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 He has been increasingly confused restless and agitated since last evening. He was sent as is staff at his nursing facility with concern that he pulled out his dialysis catheter as he has been messing with frequently the last several days. Also been seen at [facility] 2 times in the past week for increasing hallucinations. Workup had reportedly been unremarkable and had been discharged back to shelter from there. In the ED was afebrile blood pressure was 1 point these to low 200s systolic. Laboratory evaluation revealed WBC count of 6.4 hemoglobin 11.7 BUN 38 creatinine of 8.3 calcium 10.7 phosphorus 4.8 total CK was 194 troponin 0.049. Influenza RSV COVID was negative. Brain CT and chest x-ray were with the acute findings. CT of the head and neck showed no large vessel occlusion or critical stenosis. Ammonia less than 9 CT neck reviewed small loculated fluid collection at the posterior base of the neck with some inflammatory stranding suggesting abscess is suspicious for hidradenitis on examination 2.1 x 1.9 cm anterior mediastinal mass with differential to include enlarged lymph nodes C-reactive metastatic or lymphoma thymoma Arter Norden and subcutaneous edema at the left axilla with multiple collateral vessels suggesting possibility of occlusion or stenosis of veins draining the left upper extremity. 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 There is also 3.7 x 2.3 cm aneurysm arising from left. Been started on IV heparin. Had been on Eliquis prior to this states without interruption. Recheck venous duplex with persistent bilateral internal jugular vein thrombosis, some of these could be related to surrounding infection/inflammation for which no definitive anticoagulation change will be suggested. Discussed with utilities ground worker. Review of his pharmacy records reveal that he has not been compliantly taking
[2023-11-30 16:42] LABS: Glucose Point of Care 92 mg/dl (65-105)
[2023-11-30 18:24] VITALS: PULSE 72
[2023-11-30] MEDS: HEPARIN SOD/D5W 100 UNITS/ML 25,000 UNITS/250 ML BAG 17 UNITS IV CONT (18:28)
[2023-11-30 19:46] LABS: Partial Thromboplastin Time 54.5 Seconds (22.3-36.8)
[2023-11-30 20:00] VITALS: PULSE 70; RESP 18; O2SAT 100
[2023-11-30 20:38] LABS: Glucose Point of Care 99 mg/dl (65-105)
[2023-11-30 20:39] VITALS: BP 171/77; PULSE 70; RESP 18; TEMP 36.3; O2SAT 100
[2023-11-30] MEDS: APIXABAN 5 MG TABLET 10 MG PO (20:55)
[2023-11-30] MEDS: LORazepam (*CRX) 0.5 MG TABLET PO (20:56)
[2023-11-30] MEDS: traZODone HCL 50 MG TABLET PO (20:56)
[2023-11-30] MEDS: DOXAZOSIN MESYLATE 2 MG TABLET PO (20:56)
[2023-11-30] MEDS: ATORVASTATIN 20 MG TABLET PO (20:56)
[2023-12-01] VITALS (24 sets, daily range): BP systolic 115–179; BP diastolic 55–77; PULSE 74–81; RESP 12–20; TEMP 36.1–37; O2SAT 95–100
[2023-12-01] MEDS: CLINDAMYCIN HCL 150 MG CAP 300 MG PO ×2 (05:09→18:02)
[2023-12-01 07:30] LABS: Basophils Absolute Auto 0.1 K/mm3 (0.0-0.1); Basophils Percent Auto 1.1 % (0.2-1.2); Eosinophils Absolute Auto 0.2 K/mm3 (0-0.3); Eosinophils Percent Auto 4.2 % (0-4.4); Hematocrit 33.9 % (42.0-52.0); Hemoglobin 10.8 g/dL (14.0-18.0); Immature Granulocyte Absolute 0.01 K/mm3 (0.00-0.031); Immature Granulocyte Percent A 0.2 % (0-0.5); Lymphocytes Percent Auto 18.9 % (18.3-44.2); Mean Corpuscular HGB Conc 31.9 g/dl (32-36); Mean Corpuscular Hemoglobin 28.3 pg (26-34); Mean Corpuscular Volume 88.7 fl (80-100); Mean Platelet Volume 11.5 fl (7.4-10.4); Monocytes Absolute Auto 0.6 K/mm3 (0.1-0.6); Monocytes Percent Auto 12.4 % (2.6-8.5); Neutrophils Percent Auto 63.2 % (45.5-73.1); Platelet Count Result 242 k/mm3 (150-375); Red Blood Count 3.82 M/mm3 (4.6-6.20); Red Cell Distribution Width 13.9 % (11.5-14.5); White Blood Count 4.8 K/mm3 (4.5-10.0)
[2023-12-01 07:56] LABS: Alanine Aminotransferase 22 U/L (6-50); Albumin Level 3.8 g/dL (3.5-5.1); Alkaline Phosphatase 71 U/L (38-126); Anion Gap 6 mmol/L (4-12); Aspartate Amino Transferase 33 U/L (17-59); Bilirubin,Total 0.6 mg/dL (0.2-1.3); Blood Urea Nitrogen 36 mg/dL (9-20); Calcium 10.3 mg/dL (8.4-10.2); Carbon Dioxide 29 mmol/L (22-30); Chloride 93 mmol/L (98-107); Estimated CRCL calculation 10 ml/min; Estimated Glomerular Filt Rate 10; Glucose 95 mg/dL (65-110); Magnesium 2.6 mg/dL (1.6-2.3); Potassium 4.8 mmol/L (3.4-5.0); Sodium 128 mmol/L (137-145)
[2023-12-01 08:09] LABS: Glucose Point of Care 94 mg/dl (65-105)
[2023-12-01] MEDS: PANTOPRAZOLE 40 MG TABLET PO (10:41)
[2023-12-01] MEDS: CALCIUM ACETATE 667 MG TABLET PO ×2 (10:41→18:02)
[2023-12-01] MEDS: buPROPion HCL SR (12 HR) 150 MG TAB PO (10:41)
[2023-12-01] MEDS: levETIRAcetam Tablet 250 MG, levETIRAcetam Tablet 500 MG 750 MG PO (10:41)
[2023-12-01] MEDS: LOSARTAN POTASSIUM 100 MG TABLET PO (10:42)
[2023-12-01] MEDS: CLOPIDOGREL BISULFATE 75 MG TABLET PO (10:42)
[2023-12-01] MEDS: hydrALAZINE HCL 50 MG TABLET PO ×2 (10:42→18:02)
[2023-12-01] MEDS: NIFEdipine 30 MG TAB.ER.24 90 MG PO (10:42)
[2023-12-01] MEDS: LABETALOL HCL 100 MG TABLET 300 MG PO ×2 (10:42→18:02)
[2023-12-01] MEDS: minoxidiL 2.5 MG TABLET PO (10:42)
[2023-12-01] MEDS: ISOSORBIDE DINITRATE 20 MG TABLET PO ×2 (10:42→18:02)
[2023-12-01] MEDS: APIXABAN 5 MG TABLET 10 MG PO (11:04)
[2023-12-01 12:03] LABS: Glucose Point of Care 79 mg/dl (65-105)
--- NOTE | 2023-12-01 12:53 | PC.NURSE ---
pt to dialysis by bed
[2023-12-01] MEDS: HEPARIN SODIUM 1,000 UNITS/ML VIAL 1000 UNITS IV PUSH (12:58)
--- NOTE | 2023-12-01 13:01 | PM.DS ---
DS: Admitting Diagnosis Discharge Date 12/01/2023 Admitting Diagnosis Altered mental status DS: Discharge Diagnosis Discharge Diagnosis (1) Altered mental status: Code(s): R41.82 - Altered mental status, unspecified Status: Acute (2) Elevated troponin: Code(s): R79.89 - Other specified abnormal findings of blood chemistry Status: Acute (3) Abscess of skin of neck: Code(s): L02.11 - Cutaneous abscess of neck Status: Acute (4) Left arm swelling: Code(s): M79.89 - Other specified soft tissue disorders Status: Chronic (5) End-stage renal disease on hemodialysis: Code(s): N18.6 - End stage renal disease; Z99.2 - Dependence on renal dialysis Status: Acute (6) Mediastinal mass: Code(s): J98.59 - Other diseases of mediastinum, not elsewhere classified Status: Acute (7) Anemia in chronic kidney disease: Code(s): N18.9 - Chronic kidney disease, unspecified; D63.1 - Anemia in chronic kidney disease Status: Acute (8) Type 2 diabetes mellitus: Code(s): E11.9 - Type 2 diabetes mellitus without complications Status: Chronic (9) Hypertension: Qualifiers: Hypertension type: primary hypertension Qualified Code(s): I10 - Essential (primary) hypertension Code(s): I10 - Essential (primary) hypertension Status: Chronic (10) Peripheral vascular disease: Code(s): I73.9 - Peripheral vascular disease, unspecified Status: Acute (11) Chronic anticoagulation: Code(s): Z79.01 - 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 He has been increasingly confused, restless and agitated since last evening prior to admission.? He was sent as the staff at his nursing facility was concerned that he would pull out his dialysis catheter as he has been messing with frequently the last several days. He Also been seen at [facility] 2 times in the past week for increasing hallucinations.? Workup had reportedly been unremarkable and had been discharged back to long-term from there. In the ED was afebrile blood pressure was on 180s to low 200s systolic.? Laboratory evaluation revealed WBC count of 6.4 hemoglobin 11.7 BUN 38 creatinine of 8.3 calcium 10.7 phosphorus 4.8 total CK was 194 troponin 0.049.? Influenza RSV COVID was negative.? Brain CT and chest x-ray were with the acute findings.? CT of the head and neck showed no large vessel occlusion or critical stenosis.? Ammonia less than 9 CT neck reviewed small loculated fluid collection at the posterior base of the neck with some inflammatory stranding suggesting abscess is suspicious for hidradenitis on examination 2.1 x 1.9 cm anterior mediastinal mass with differential to include enlarged lymph nodes C-reactive metastatic or lymphoma thymoma or teratoma and subcutaneous edema at the left axilla with multiple collateral vessels suggesting possibility of occlusion or stenosis of veins draining the left upper extremity. Further workup with ultrasound upper extremity revealed occlusive thrombosis of the bilateral internal jugular vein with hypoechoic masses in bilateral axilla measuring 2.4 cm in the right axilla and 3.5 left axilla suspicious for lymphadenopathy concerning for lymphoma.? There is also 3.7 x 2.3 cm aneurysm arising from left. He has Been started on IV heparin.?? Recheck venous duplex during the hospital stay with persistent bilateral internal jugular vein thrombosis, some of these could be related to surrounding infection/inflammation for which no definitive anticoagulatio
[2023-12-01] MEDS: HEPARIN SODIUM 1,000 UNITS/ML VIAL 500 UNITS IV PUSH ×4 (13:02→16:03)
--- NOTE | 2023-12-01 13:20 | PM.PNNEP ---
Progress Note: A&P Assessment and Plan (1) End stage renal disease: Code(s): N18.6 - End stage renal disease Status: Chronic Assessment and Plan: HD today continue T/T/S schedule while hospitalized follow electrolytes, volume status, and clearance (2) Altered mental status: Code(s): R41.82 - Altered mental status, unspecified Status: Acute Assessment and Plan: clinical improvement noted if not resolved follow mentation (3) Abscess of skin of neck: Code(s): L02.11 - Cutaneous abscess of neck Status: Acute Assessment and Plan: as noted on exam several cystic lesions localized to his posterior neck one of these lesions is open and draining blood cultures negative. wound culture results noted on antibiotics General Surgery following (4) Hypertension: Qualifiers: Hypertension type: primary hypertension Qualified Code(s): I10 - Essential (primary) hypertension Code(s): I10 - Essential (primary) hypertension Status: Chronic Assessment and Plan: reasonable control but can fluctuate currently on doxazosin, hydralazine, labetalol, nifedipine, and minoxidil follow trend of hemodynamics (5) Anemia: Code(s): D64.9 - Anemia, unspecified Status: Chronic Assessment and Plan: due to ESRD Epogen with HD follow trend of H/H (6) Type 2 diabetes mellitus: Code(s): E11.9 - Type 2 diabetes mellitus without complications Status: Chronic Assessment and Plan: follow accu-cheks glycemic control per hospitalists Will continue to follow. Subjective Date/time seen: 12/01/23 13:20 Interval history: Follow-up for end stage renal disease on hemodialysis. Tolerating dialysis at the time of my visit (seen on HD at 1:10PM); no apparent distress noted; no issues/events overnight or earlier this morning; overall, feels reasonably well. Exam Narrative: General: WD/WN male in NAD Heart: normal S1 and S2; no rub Lungs: clear bilaterally Abdomen: Bowel sounds positive nontender Extremities: no cyanosis or clubbing; no edema; s/p L BKA and R AKA Skin: warm and dry Objective Data Vital Signs Vital Signs: Vital Signs Temp Pulse Resp BP Pulse Ox O2 Del Method 12/01/23 10:43 97.7 F 76 18 153/55 H 100 12/01/23 10:42 76 12/01/23 06:00 96.9 F L 74 20 154/66 H 95 11/30/23 20:00 70 18 100 Room Air 11/30/23 20:39 97.3 F L 70 18 171/77 H 100 11/30/23 18:24 72 11/30/23 14:00 97.3 F L 72 12 177/76 H 98 Intake/Output Intake/Output: Intake & Output 11/28/23 11/29/23 11/30/23 12/01/23 23:59 23:59 23:59 23:59 Intake Total 1686.7 1263.1 882 322 Output Total 3000 Balance -1313.3 1263.1 882 322 Meds/Results Medications: Active Medications Generic Name Dose Route Start Last Admin Trade Name Freq PRN Reason Stop Dose Admin Acetaminophen 650 mg 11/24/23 21:10 11/30/23 20:56 Acetaminophen 325 Mg Tablet PO 650 mg Q6H PRN Administration Mild Pain (1-3) or Fever Apixaban 10 mg 11/30/23 21:00 12/01/23 11:04 Apixaban 5 Mg Tablet PO 12/07/23 20:59 10 mg Q12HR AZALEA Administration Apixaban 5 mg 12/07/23 21:00 Apixaban 5 Mg Tablet PO Q12HR AZALEA Atorvastatin Calcium 20 mg 11/24/23 21:25 11/30/23 20:56 Atorvastatin 20 Mg Tablet PO 20 mg HS AZALEA Administration Bupropion HCl 150 mg 11/25/23 09:00 12/01/23 10:41 Bupropion Hcl Sr (12 Hr) 150 Mg Tab PO 150 mg Q12HR AZALEA Administration Calcitriol 0.25 mcg 11/25/23 09:00 11/30/23 08:59 Calcitriol 0.25 Mcg Capsule PO 0.25 mcg [id number] AZALEA Administration Calcium Acetate 667 mg 11/25/23 08:00 12/01/23 12:52 Calcium Acetate 667 Mg Tablet PO Not Given TIDWM AZALEA Clindamycin HCl 300 mg 11/30/23 13:30 12/01/23 12:52 Clindamycin Hcl 150 Mg Cap PO Not Given Q6HR AZALEA Clon
--- NOTE | 2023-12-01 13:20 | P.PNNP_ITS ---
Progress Note: A&P Assessment and Plan (1) End stage renal disease: Code(s): N18.6 - End stage renal disease Status: Chronic Assessment and Plan: * HD today * continue T/T/S schedule while hospitalized * follow electrolytes, volume status, and clearance (2) Altered mental status: Code(s): R41.82 - Altered mental status, unspecified Status: Acute Assessment and Plan: * clinical improvement noted if not resolved * follow mentation (3) Abscess of skin of neck: Code(s): L02.11 - Cutaneous abscess of neck Status: Acute Assessment and Plan: * as noted on exam * several cystic lesions localized to his posterior neck * one of these lesions is open and draining * blood cultures negative. * wound culture results noted * on antibiotics * General Surgery following (4) Hypertension: Qualifiers: Hypertension type: primary hypertension Qualified Code(s): I10 - Essential (primary) hypertension Code(s): I10 - Essential (primary) hypertension Status: Chronic Assessment and Plan: * reasonable control but can fluctuate * currently on doxazosin, hydralazine, labetalol, nifedipine, and minoxidil * follow trend of hemodynamics (5) Anemia: Code(s): D64.9 - Anemia, unspecified Status: Chronic Assessment and Plan: * due to ESRD * Epogen with HD * follow trend of H/H (6) Type 2 diabetes mellitus: Code(s): E11.9 - Type 2 diabetes mellitus without complications Status: Chronic Assessment and Plan: * follow accu-cheks * glycemic control per hospitalists Will continue to follow. Subjective Date/time seen: 12/01/23 13:20 Interval history: Follow-up for end stage renal disease on hemodialysis. Tolerating dialysis at the time of my visit (seen on HD at 1:10PM); no apparent distress noted; no issues/events overnight or earlier this morning; overall, feels reasonably well. Exam Narrative: General: WD/WN male in NAD Heart: normal S1 and S2; no rub Lungs: clear bilaterally Abdomen: Bowel sounds positive nontender Extremities: no cyanosis or clubbing; no edema; s/p L BKA and R AKA Skin: warm and dry Objective Data Vital Signs Vital Signs: Vital Signs Temp Pulse Resp BP Pulse Ox O2 Del Method 12/01/23 10:43 97.7 F 76 18 153/55 H 100 12/01/23 10:42 76 12/01/23 06:00 96.9 F L 74 20 154/66 H 95 11/30/23 20:00 70 18 100 Room Air 11/30/23 20:39 97.3 F L 70 18 171/77 H 100 11/30/23 18:24 72 11/30/23 14:00 97.3 F L 72 12 177/76 H 98 Intake/Output Intake/Output: Intake & Output 11/28/23 11/29/23 11/30/23 12/01/23 23:59 23:59 23:59 23:59 Intake Total 1686.7 1263.1 882 322 Output Total 3000 Balance -1313.3 1263.1 882 322 Meds/Results Medications: Active Medications Generic Name Dose Route Start Last Admin Trade Name Freq PRN Reason Stop Dose Admin Acetaminophen 650 mg 11/24/23 21:10 11/30/23 20:56 Acetaminophen 325 Mg Tablet PO 650 mg Q6H PRN Administration Mild Pain (1-3) or Fever Apixaban 10 mg
[2023-12-01] MEDS: EPOETIN ALFA-EPBX 4,000 UNITS/ML VIAL 4000 UNITS IV PUSH (15:15)
[2023-12-01 15:36] LABS: SARS-CoV-2 RNA PCR Negative (Negative)
--- NOTE | 2023-12-01 15:38 | PC.NURSE ---
Report call to SANDI Quintero at [facility] at 1605.
[2023-12-01] MEDS: HEPARIN SODIUM 1,000 UNITS/ML VIAL 4000 UNITS IV PUSH (16:53)
[2023-12-01 17:09] LABS: Glucose Point of Care 85 mg/dl (65-105)
== END 2023-12-01 20:00 | DRG 383 ==
LOC: ANHED 06:45 → ANHIMU 13:53 → ANH3MEDSUR 11-27 06:46
PROVIDERS: Family Medicine; Internal Medicine; Internal Medicine Nephrology; Physician Assistant; Student in an Organized Health Care Education/Training Program; Admitting Provider General Practice; Emergency Provider Emergency Medicine; PCP Internal Medicine; Visit Provider Internal Medicine
DX: L02.11 Cutaneous abscess of neck (principal); I12.0 Hypertensive chronic kidney disease with stage 5 chronic kidney disease or end stage renal disease; N18.6 End stage renal disease; G93.41 Metabolic encephalopathy; L73.2 Hidradenitis suppurativa; I82.C13 Acute embolism and thrombosis of internal jugular vein, bilateral; E11.22 Type 2 diabetes mellitus with diabetic chronic kidney disease; R44.3 Hallucinations, unspecified; G40.909 Epilepsy, unspecified, not intractable, without status epilepticus; E78.5 Hyperlipidemia, unspecified; D63.1 Anemia in chronic kidney disease; R59.1 Generalized enlarged lymph nodes; I73.9 Peripheral vascular disease, unspecified; K21.9 Gastro-esophageal reflux disease without esophagitis; F32.A Depression, unspecified; E44.0 Moderate protein-calorie malnutrition; Z68.30 Body mass index [BMI] 30.0-30.9, adult; J98.59 Other diseases of mediastinum, not elsewhere classified; Z20.822 Contact with and (suspected) exposure to COVID-19; Z99.2 Dependence on renal dialysis; Z89.512 Acquired absence of left leg below knee; Z89.611 Acquired absence of right leg above knee; Z86.73 Personal history of transient ischemic attack (TIA), and cerebral infarction without residual deficits; Z79.01 Long term (current) use of anticoagulants; Z87.891 Personal history of nicotine dependence
CPT/HCPCS: 36415; 70450; 70496; 70498; 70551; 71045; 71250; 74176; 80048; 80053; 81001; 82140; 82550; 82607; 82948; 83036; 83605; 83690; 83735; 84100; 84145; 84443; 84484; 85025; 85027; 85610; 85730; 86140; 86706; 87040; 87070; 87086; 87205; 87340; 87635; 87637; 87641; 92610; 93005; 93970; 96361; 96372; 96374; 96375; 96376; 99285; A9270; G0257; G0378; G0379; J0360; J1644; J1953; J2060; J7030; Q5105; Q9967

== ENCOUNTER 2023-12-03 00:42 | Emergency (ER) | payer OTHER, SELFPAY ==
--- NOTE | ~2023-12-03 | CT_ITS ---
CT of the Abdomen and Pelvis: Indication: Abdominal pain Technique: 2.5 mm axial scans were obtained through the abdomen and pelvis following intravenous adm inistration of 100 cc of Omnipaque 350. Dose reduction technique was used on this scan by utilizing a utomated exposure control and iterative reconstruction technique. The dose-length product (DLP) was 8 83.17 mGy-cm. COMPARISON: 11/27/2023 Findings: Scans through the lung bases are unremarkable. The liver, spleen, pancreas, gallbladder, and adrenal glands are within normal limits. Kidneys are mi ldly atrophic. There are atherosclerotic calcifications of the aorta, iliac vessels, and central mese nteric vessels. No lymphadenopathy. No bowel obstruction or bowel wall thickening. There is no evidence to suggest acute appendicitis. Images through the pelvis were performed. Urinary bladder grossly unremarkable. No pelvic mass eviden t. No ascites. Prominent multilevel Schmorl's nodes and spine are unchanged. Impression: No acute abnormalities seen. Reviewed, dictated and finalized at [facility]. Impression: No acute abnormalities seen.
[2023-12-03 00:42] VITALS: BP 149/57; PULSE 74; RESP 16; TEMP 36.4; O2SAT 95
[2023-12-03 01:10] LABS: Basophils Percent Auto 0.6 % (0.2-1.2); Eosinophils Absolute Auto 0.1 K/mm3 (0-0.3); Eosinophils Percent Auto 2.8 % (0-4.4); Hemoglobin 10.8 g/dL (14.0-18.0); Immature Granulocyte Absolute 0.03 K/mm3 (0.00-0.031); Immature Granulocyte Percent A 0.6 % (0-0.5); Lymphocytes Absolute Auto 0.95 K/mm3 (0.9-3.2); Lymphocytes Percent Auto 19.3 % (18.3-44.2); Mean Corpuscular HGB Conc 31.8 g/dl (32-36); Mean Corpuscular Hemoglobin 28.5 pg (26-34); Mean Corpuscular Volume 89.7 fl (80-100); Mean Platelet Volume 11.3 fl (7.4-10.4); Monocytes Absolute Auto 0.7 K/mm3 (0.1-0.6); Monocytes Percent Auto 13.2 % (2.6-8.5); Neutrophils Absolute Auto 3.1 K/mm3 (1.3-6.7); Neutrophils Percent Auto 63.5 % (45.5-73.1); Platelet Count Result 255 k/mm3 (150-375); Red Blood Count 3.79 M/mm3 (4.6-6.20); Red Cell Distribution Width 14.5 % (11.5-14.5); White Blood Count 4.9 K/mm3 (4.5-10.0)
--- NOTE | 2023-12-03 01:27 | ED.ABDPAIN ---
HPI - Abdominal Pain General Chief Complaint: Abdominal Pain <Danielle Barros PA-C - Last Filed: 12/03/23 03:20> Stated Complaint: abd pain <Danielle Barros PA-C - Last Filed: 12/03/23 03:20> Time Seen by Provider: 12/03/23 03:22 <Danielle Barros PA-C - Last Filed: 12/03/23 03:20> History of Present Illness HPI narrative: 53-year-old female with history of type 2 diabetes, hyperlipidemia, CVA, CHF, epilepsy, anemia, SD, bilateral leg amputation, ESRD on hemodialysis on a Thursday, , Thursday schedule presents to emergency department from [facility] via EMS for abdominal pain that started today. Patient states the pain is diffuse, however when he points to it is mostly in his right lower quadrant and suprapubic region. He states he feels constipated, his last bowel movement was yesterday. He denies chest pain or shortness of breath, dysuria hematuria. He states he makes a very small amount of urine and has associated incontinence. He states he has not missed a dialysis appointment. Denies fever or prior abdominal surgeries. <Danielle Barros PA-C - Last Filed: 12/03/23 03:20> Related Data Home Medications: Home Medications Medication Instructions Recorded Confirmed acetaminophen 325 mg tablet 325 mg PO Q4H PRN Pain (Scale 01/24/23 11/24/23 Score 1-3) atorvastatin 20 mg tablet (Lipitor) 20 mg PO HS 01/24/23 11/24/23 calcium acetate(phosphat bind) 667 667 mg PO TID 01/24/23 11/24/23 mg capsule clonidine HCl 0.2 mg tablet 0.2 mg PO TID PRN Hypertension 01/24/23 11/24/23 clopidogrel 75 mg tablet 75 mg PO DAILY 01/24/23 11/24/23 doxazosin 2 mg tablet 2 mg PO HS 01/24/23 11/24/23 hydralazine 50 mg tablet 50 mg PO TID 01/24/23 11/24/23 isosorbide dinitrate 20 mg tablet 20 mg PO TID 01/24/23 11/24/23 losartan 100 mg tablet 100 mg PO DAILY 01/24/23 11/24/23 minoxidil 2.5 mg tablet 2.5 mg PO Q12H 01/24/23 11/24/23 nitroglycerin 0.4 mg sublingual 0.4 mg sublingual Q5MIN PRN Chest 01/24/23 11/24/23 tablet Pain ondansetron HCl 4 mg tablet 4 mg PO Q6H PRN Nausea And Vomiting 01/24/23 11/24/23 pantoprazole 40 mg tablet,delayed 40 mg PO DAILY 01/24/23 11/24/23 release polyethylene glycol 3350 17 17 g PO DAILY PRN Constipation 01/24/23 11/24/23 gram/dose oral powder (Miralax) bupropion HCl 150 mg tablet,12 hr 150 mg PO BID 11/24/23 11/24/23 sustained-release calcitriol 0.25 mcg capsule 0.25 mcg PO 3XW 11/24/23 11/24/23 labetalol 300 mg tablet 300 mg PO BID 11/24/23 11/24/23 lorazepam 0.5 mg tablet 0.5 mg PO BID PRN Anxiety 11/24/23 11/24/23 nifedipine 90 mg tablet,extended 90 mg PO DAILY 11/24/23 11/24/23 release trazodone 50 mg tablet 50 mg PO HS 11/24/23 11/24/23 <Danielle Barros PA-C - Last Filed: 12/03/23 03:20> Allergies/Adverse Reactions: Allergies Allergy/AdvReac Type Severity Reaction Status Date / Time No Known Allergies Allergy Verified 01/24/23 07:35 <Danielle Barros PA-C - Last Filed: 12/03/23 03:20> Review of Systems Review of Systems: CONSTITUTIONAL: Denies fever, chills, or sweats. EYES: Denies visual changes, redness, or discharge. ENT: Denies rhinorrhea, congestion, sore throat, or otalgia. CARDIOVASCULAR: Denies chest pain, palpitations, or edema. RESPIRATORY: Denies cough or dyspnea. GASTROINTESTINAL: Denies abdominal pain, nausea, vomiting, or diarrhea. GENITOURINARY: Denies dysuria or hematuria. SKIN: Denies rash or itching. MUSCULOSKELETAL: Denies back pain, joint pain, or myalgia. NEUROLOGIC: Denies headache, numbness, or weakness. PSYCHIATRIC: Denies anxiety or depression. <Danielle Barros PA-C - Last Filed: 12/03/23 03:20> [facility] Past Medical History Medical History: Medical History Anemia in chronic kidney disease Cerebrovascular accident Chronic anticoagulation Depression End-stage renal disease on hemodialysis Epilepsy Gastroesophageal ref
[2023-12-03 01:38] LABS: Alanine Aminotransferase 19 U/L (6-50); Alkaline Phosphatase 81 U/L (38-126); Anion Gap 7 mmol/L (4-12); Aspartate Amino Transferase 36 U/L (17-59); Bilirubin,Total 0.7 mg/dL (0.2-1.3); Blood Urea Nitrogen 25 mg/dL (9-20); Calcium 10.7 mg/dL (8.4-10.2); Carbon Dioxide 30 mmol/L (22-30); Chloride 98 mmol/L (98-107); Estimated Glomerular Filt Rate 12; Glucose 104 mg/dL (65-110); Lipase 49 U/L (23-300); Potassium 4.4 mmol/L (3.4-5.0); Sodium 135 mmol/L (137-145)
--- NOTE | 2023-12-03 01:38 | ECG_ITS ---
SEE SCANNED COPY FOR CONFIRMED REPORT MTDD
[2023-12-03 02:04] LABS: INR 1.1; Prothrombin Time 14.4 Seconds (11.1-14.7)
[2023-12-03 02:05] LABS: Partial Thromboplastin Time 39.9 Seconds (22.3-36.8)
[2023-12-03 03:09] VITALS: BP 156/54; PULSE 76; RESP 18; O2SAT 97
[2023-12-03 03:22] LABS: Lactic Acid Reflex 0.7 mmol/L (0.7-2.0)
[2023-12-03 04:18] LABS: Magnesium 2.7 mg/dL (1.6-2.3); Phosphorus 4.9 mg/dL (2.5-4.5)
[2023-12-03 04:23] LABS: Add Urine Microscopic? YES
[2023-12-03 04:24] LABS: Bacteria Urine Trace /hpf; Hyaline Casts Urine Present /lpf; RBC Urine 51-100 /hpf (0-2)
[2023-12-03 04:25] LABS: Appearance Urine Sl Cloudy (Clear); Blood Urine 2+ (Negative); Color Urine Light Yellow (Yellow); Glucose Urine UA Trace mg/dL (Negative); Ketones Urine Negative (Negative); Need Manual Microscopic Yes; Protein Urine 3+ mg/dL (Negative); pH Urine >=9.0 (5.0-9.0)
[2023-12-03 04:26] LABS: Bilirubin Urine Negative (Negative); Leukocyte Esterase Ur 1+ LEU/UL (Negative); Nitrate Urine Negative (Negative); Urobilinogen Urine 0.2 mg/dL (<2.0)
[2023-12-03 05:07] VITALS: PULSE 78; RESP 15; O2SAT 97
== END 2023-12-03 05:45 ==
PROVIDERS: Physician Assistant; Emergency Provider Emergency Medicine; PCP Internal Medicine
DX: R10.31 Right lower quadrant pain (principal); E11.22 Type 2 diabetes mellitus with diabetic chronic kidney disease; I13.2 Hypertensive heart and chronic kidney disease with heart failure and with stage 5 chronic kidney disease, or end stage renal disease; I50.9 Heart failure, unspecified; N18.6 End stage renal disease; Z99.2 Dependence on renal dialysis; D63.1 Anemia in chronic kidney disease; E11.51 Type 2 diabetes mellitus with diabetic peripheral angiopathy without gangrene; I73.9 Peripheral vascular disease, unspecified; G40.909 Epilepsy, unspecified, not intractable, without status epilepticus; E78.5 Hyperlipidemia, unspecified; K21.9 Gastro-esophageal reflux disease without esophagitis; Z86.73 Personal history of transient ischemic attack (TIA), and cerebral infarction without residual deficits; Z89.522 Acquired absence of left knee; Z89.521 Acquired absence of right knee; Z79.01 Long term (current) use of anticoagulants; R94.31 Abnormal electrocardiogram [ECG] [EKG]
CPT/HCPCS: 36415; 74177; 80053; 81001; 83605; 83690; 83735; 84100; 85025; 85610; 85730; 87086; 87088; 93005; 99284; Q9967

== ENCOUNTER 2023-12-21 14:16 | Observation (INO) | payer OTHER, SELFPAY ==
[2023-12-21] VITALS (9 sets, daily range): BP systolic 139–193; BP diastolic 54–92; PULSE 77–87; RESP 15–18; TEMP 36.4; O2SAT 94–100
--- NOTE | ~2023-12-21 | XR_ITS ---
Right Shoulder Technique: AP and scapular Y views were obtained. Clinical History: Pain Findings: Is detected fractures of the base of the acromion of the scapula. AC joint alignment appear s satisfactory. Glenohumeral joint intact. No other fracture or dislocation evident. Soft tissues are unremarkable. Impression: Probable transverse fracture through the base of the acromion of the scapula. Consider CT to further evaluate fracture, as indicated. Reviewed, dictated and finalized at location M. Impression: Probable transverse fracture through the base of the acromion of the scapula. C onsider CT to further evaluate fracture, as indicated.
--- NOTE | ~2023-12-21 | CT_ITS ---
EXAMINATION: CT shoulder RT wo con DATE: 12/23/2023 09:48 INDICATION: Right acromial fracture TECHNIQUE: High resolution computed tomography (CT) of the right shoulder was performed without intra venous contrast. Additional sagittal and coronal reconstructions were performed. Automated exposure c ontrol and iterative reconstruction technique were employed. The dose-length product was 493.30 mGy-c m. COMPARISON: Right shoulder radiographs dated 12/22/2023 FINDINGS: Comminuted right scapular fracture with minimally displaced fractures extending across the base of th e acromion and across the base of the coracoid process. The latter extends medially along the superol ateral aspect of the scapular body and laterally to involve the anterosuperior aspect of the glenoid. No significant fracture gap or incongruity at the articular surface of the glenoid. There is small a mount of not yet solidly bridging callus formation at both fractures consistent with interval healing . Normal alignment at the acromioclavicular and glenohumeral joints, both with mild osteoarthritis. T here is a moderate-sized right glenohumeral joint effusion. Small dependently layering bilateral pleu ral effusions with mild dependent compressive atelectasis in both lungs. Additional discoid atelectas is at the anterior segment of the right upper lobe. Mild emphysema. Distal tip of a large-bore old ri ght internal jugular central venous catheter is positioned at the superior cavoatrial junction. There is diffuse subcutaneous edema at the visualized right chest and upper arm. There are multiple mildly prominent but still normal-sized right axillary lymph notes which are likely reactive. 1.5 cm superf icial subcutaneous cystic lesion at the anterior left axilla, likely epidermoid cyst. IMPRESSION: 1. Healing minimally displaced fractures cross the acromion and base of the coracoid process, bladder with intra-articular extension to the anterosuperior glenoid. 2. Small bilateral pleural effusions. Reviewed, dictated and finalized at location A. IMPRESSION: 1. Healing minimally displaced fractures cross the acromion and base of the cor acoid process, bladder with intra-articular extension to the anterosuperior gle noid. 2. Small bilateral pleural effusions.
--- NOTE | ~2023-12-21 | XR_ITS ---
EXAMINATION: XR chest 2V Exam Date/Time: 12/21/2023 14:55 CDT HISTORY: cp sob X 1 DAY Comparison: 11/24/2023. RESULT: Lines, tubes, and devices: Right IJ dialysis catheter terminating in the distal SVC. Lungs and pleura: Mild diffuse interstitial opacities, cephalization, cuffing, fissural fluid, and b ilateral costophrenic angle blunting. Cardiomediastinal silhouette: Stable. Other: No acute osseous or upper abdominal finding. IMPRESSION: Mild pulmonary edema. Small bilateral effusions. Reviewed, dictated and finalized at location K.
--- NOTE | 2023-12-21 14:29 | ECG_ITS ---
SEE SCANNED COPY FOR CONFIRMED REPORT MTDD
[2023-12-21 15:03] LABS: Basophils Absolute Auto 0.1 K/mm3 (0.0-0.1); Basophils Percent Auto 0.8 % (0.2-1.2); Eosinophils Absolute Auto 0.2 K/mm3 (0-0.3); Eosinophils Percent Auto 2.8 % (0-4.4); Hematocrit 28.9 % (42.0-52.0); Hemoglobin 8.9 g/dL (14.0-18.0); Immature Granulocyte Absolute 0.02 K/mm3 (0.00-0.031); Immature Granulocyte Percent A 0.3 % (0-0.5); Lymphocytes Absolute Auto 0.82 K/mm3 (0.9-3.2); Lymphocytes Percent Auto 12.9 % (18.3-44.2); Mean Corpuscular HGB Conc 30.8 g/dl (32-36); Mean Corpuscular Hemoglobin 27.9 pg (26-34); Mean Corpuscular Volume 90.6 fl (80-100); Mean Platelet Volume 11.4 fl (7.4-10.4); Monocytes Absolute Auto 0.5 K/mm3 (0.1-0.6); Monocytes Percent Auto 8.5 % (2.6-8.5); Neutrophils Absolute Auto 4.7 K/mm3 (1.3-6.7); Neutrophils Percent Auto 74.7 % (45.5-73.1); Platelet Count Result 196 k/mm3 (150-375); Red Blood Count 3.19 M/mm3 (4.6-6.20); Red Cell Distribution Width 14.3 % (11.5-14.5); White Blood Count 6.3 K/mm3 (4.5-10.0)
[2023-12-21 15:15] LABS: Alanine Aminotransferase 67 U/L (6-50); Albumin Level 3.7 g/dL (3.5-5.1); Alkaline Phosphatase 92 U/L (38-126); Anion Gap 7 mmol/L (4-12); Aspartate Amino Transferase 38 U/L (17-59); Bilirubin,Total 0.7 mg/dL (0.2-1.3); Blood Urea Nitrogen 52 mg/dL (9-20); Calcium 9.2 mg/dL (8.4-10.2); Carbon Dioxide 30 mmol/L (22-30); Chloride 96 mmol/L (98-107); Estimated Glomerular Filt Rate 9; Glucose 117 mg/dL (65-110); Lipase 56 U/L (23-300); Potassium 4.2 mmol/L (3.4-5.0); Sodium 133 mmol/L (137-145)
[2023-12-21 15:24] LABS: INR 1.1; Prothrombin Time 14.9 Seconds (11.1-14.7)
[2023-12-21 15:25] LABS: Partial Thromboplastin Time 34.8 Seconds (22.3-36.8)
[2023-12-21 15:33] LABS: Troponin I 0.035 ng/mL (0.000-0.034)
--- NOTE | 2023-12-21 16:47 | ED.GENADULT ---
HPI - General Adult General Chief complaint: Chest Pain Stated complaint: cp Time Seen by Provider: 12/21/23 15:48 History of Present Illness HPI narrative: patient is a 53-year-old male who presents ER with chest pain. Pressure. Feels like the bad pain gets when he has volume overload. He last dialyzed 3 days ago normally got 1 hour of his 4 hours dialysis cousin accidentally had a bowel movement had be cleaned up. No fevers or chills or sweats. No oxygen requirement. 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 Related Data Home Medications Medication Instructions Recorded Confirmed acetaminophen 325 mg tablet 325 mg PO Q4H PRN Pain (Scale 01/24/23 11/24/23 Score 1-3) atorvastatin 20 mg tablet (Lipitor) 20 mg PO HS 01/24/23 11/24/23 calcium acetate(phosphat bind) 667 667 mg PO TID 01/24/23 11/24/23 mg capsule clonidine HCl 0.2 mg tablet 0.2 mg PO TID PRN Hypertension 01/24/23 11/24/23 clopidogrel 75 mg tablet 75 mg PO DAILY 01/24/23 11/24/23 doxazosin 2 mg tablet 2 mg PO HS 01/24/23 11/24/23 hydralazine 50 mg tablet 50 mg PO TID 01/24/23 11/24/23 isosorbide dinitrate 20 mg tablet 20 mg PO TID 01/24/23 11/24/23 losartan 100 mg tablet 100 mg PO DAILY 01/24/23 11/24/23 minoxidil 2.5 mg tablet 2.5 mg PO Q12H 01/24/23 11/24/23 nitroglycerin 0.4 mg sublingual 0.4 mg sublingual Q5MIN PRN Chest 01/24/23 11/24/23 tablet Pain ondansetron HCl 4 mg tablet 4 mg PO Q6H PRN Nausea And Vomiting 01/24/23 11/24/23 pantoprazole 40 mg tablet,delayed 40 mg PO DAILY 01/24/23 11/24/23 release polyethylene glycol 3350 17 17 g PO DAILY PRN Constipation 01/24/23 11/24/23 gram/dose oral powder (Miralax) bupropion HCl 150 mg tablet,12 hr 150 mg PO BID 11/24/23 11/24/23 sustained-release calcitriol 0.25 mcg capsule 0.25 mcg PO 3XW 11/24/23 11/24/23 labetalol 300 mg tablet 300 mg PO BID 11/24/23 11/24/23 lorazepam 0.5 mg tablet 0.5 mg PO BID PRN Anxiety 11/24/23 11/24/23 nifedipine 90 mg tablet,extended 90 mg PO DAILY 11/24/23 11/24/23 release trazodone 50 mg tablet 50 mg PO HS 11/24/23 11/24/23 Allergies Allergy/AdvReac Type Severity Reaction Status Date / Time No Known Allergies Allergy Verified 12/21/23 14:28 Review of Systems Review of Systems: All systems reviewed & are unremarkable except as noted in HPI and below Constitutional: Constitutional: Reports no additional constitutional complaints ENT: Reports system reviewed and no additional complaints, except as documented Cardiovascular: Cardiovascular: Reports chest pain, Denies rapid heart rate and Denies radiating jaw, neck or arm pain Respiratory: Respiratory: Denies cough, Reports dyspnea and Denies wheezing Gastrointestinal: Gastrointestinal: Reports no additional gastrointestinal complaints Musculoskeletal: Musculoskeletal: Reports no additional musculoskeletal complaints Integumentary/Breasts: Skin/Breast: Reports system reviewed and no additional complaints, except as docu PMFSH Past Medical History Medical History Anemia in chronic kidney disease Cerebrovascular accident Chronic anticoagulation Depression End-stage renal disease on hemodialysis Epilepsy Gastroesophageal reflux disease Hyperlipidemia Hypertension Peripheral vascular disease Seizure disorder Type 2 diabetes mellitus Surgical History Surgical History History of left below knee amputation History of right above knee amputation Family History Family History Other Unknown family medical history Social History Social History Social History: Surrogate medical decision maker: Landy Hernan, spouse. Code status: Full code. Smoking status: Unknown if ever smoked Alcohol intake: unknown Substance use: unknown Lack of Tr
--- NOTE | 2023-12-21 17:46 | ECG_ITS ---
SEE SCANNED COPY FOR CONFIRMED REPORT MTDD
[2023-12-21 18:58] LABS: Troponin I 0.036 ng/mL (0.000-0.034)
--- NOTE | 2023-12-21 19:12 | PC.NURSE ---
Report given to Kate JUNIOR, all questions answered
--- NOTE | 2023-12-21 21:43 | ECG_ITS ---
SEE SCANNED COPY FOR CONFIRMED REPORT MTDD
[2023-12-21 22:55] LABS: Troponin I 0.037 ng/mL (0.000-0.034)
--- NOTE | 2023-12-21 23:14 | PM.IMHP ---
H&P: HPI History of Present Illness Date/Time: 12/21/23 22:15 Chief Complaint: Chest pain and shortness of breath. 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 The patient provides the following history. He has dialysis on Thursday, , and Thursday but only received an hour of treatment this past Thursday because he apparently had an episode of diarrhea so they cut his dialysis short. Since that time he has noticed increasing shortness of breath and swelling. Today he felt tightness in his upper chest associated with the shortness of breath similar to when he has had volume overload in the past. He denies lightheadedness, dizziness, cold and flu symptoms, sweats, pleuritic pain, nausea, and vomiting. He has not noticed any blood in the stool. He currently complains of pain in his right shoulder which he is concerned is broken after fall though In the ED: He was afebrile on arrival with stable blood pressures. SpO2 has been in the upper 90s to 100 on 2 L. labs were significant for WBC count of 6.3, hemoglobin 8.9, sodium 133, chloride 96, BUN 52, creatinine 7.50, troponin 0.035. Chest x-ray showed mild pulmonary edema and small bilateral pleural effusions. EKG shows sinus rhythm with nonspecific ST changes. He was given aspirin 324 mg and he is being admitted in this setting for closer monitoring and dialysis tomorrow. Review of Systems Review of Systems: 12 systems were reviewed and are negative except for as per HPI. [facility] Past Medical History Medical History Anemia in chronic kidney disease Cerebrovascular accident Chronic anticoagulation Depression End-stage renal disease on hemodialysis Epilepsy Gastroesophageal reflux disease Hyperlipidemia Hypertension Peripheral vascular disease Seizure disorder Type 2 diabetes mellitus Surgical History Surgical History History of left below knee amputation History of right above knee amputation Family History Family History Other Unknown family medical history Social History Social History Social History: Surrogate medical decision maker: Landy Becerra, spouse. Code status: Full code. Smoking status: Never smoker Alcohol intake: never Substance use: never Do You Feel Safe in your Home?: No Lack of Transportation: No Lack of Food: Never True Current Housing: I Have Housing Concerned About Future Housing: No Difficulty Paying Gas/Electric Bills: No Difficulty Paying for Meds: No Currently Unemployed: No Education: Decline to Answer Difficulty w/ Childcare or Family Care: No Additional living arrangements comments: Resident at [facility]. Sexual Orientation (if Verbalized by the Patient): Straight or Heterosexual Spiritual care concerns: No Meds Home Medications and Allergies Home Medications Medication Instructions Recorded Confirmed Type acetaminophen 325 mg tablet 325 mg PO Q4H PRN Pain (Scale 01/24/23 12/22/23 History Score 1-3) atorvastatin 20 mg tablet (Lipitor) 20 mg PO HS 01/24/23 12/22/23 History calcium acetate(phosphat bind) 667 667 mg PO TID 01/24/23 12/22/23 History mg capsule clonidine HCl 0.2 mg tablet 0.2 mg PO TID PRN Hypertension 01/24/23 12/22/23 History clopidogrel 75 mg tablet 75 mg PO DAILY 01/24/23 12/22/23 History doxazosin 2 mg tablet 2 mg PO HS 01/24/23 12/22/23 History hydralazine 50 mg tablet 50 mg PO TID 01/24/23 12/22/23 H
[2023-12-21] MEDS: traMADol HCL (*CRX) 50 MG TABLET PO (23:58)
[2023-12-22] VITALS (26 sets, daily range): BP systolic 146–243; BP diastolic 64–115; PULSE 67–95; RESP 12–22; TEMP 35.8–37; O2SAT 94–100
[2023-12-22] MEDS: cloNIDine HCL 0.2 MG TABLET PO ×2 (03:20→11:08)
[2023-12-22] MEDS: LOSARTAN POTASSIUM 100 MG TABLET PO (03:20)
[2023-12-22 03:24] LABS: Iron 71 ug/dL (49-181)
[2023-12-22 03:29] LABS: Glucose Point of Care 116 mg/dl (65-105)
[2023-12-22 03:35] LABS: Percent Iron Saturation 45 % (20-50)
[2023-12-22] MEDS: hydrALAZINE HCL 20 MG/ML VIAL 10 MG IV PUSH ×3 (05:09→21:19)
--- NOTE | 2023-12-22 05:43 | PC.NURSE ---
OK PER DR GAY TO CHANGE PT TO MED TELE AT THIS TIME.
[2023-12-22 06:51] LABS: Hematocrit 30.3 % (42.0-52.0); Hemoglobin 9.2 g/dL (14.0-18.0); Mean Corpuscular HGB Conc 30.4 g/dl (32-36); Mean Corpuscular Hemoglobin 28.6 pg (26-34); Mean Corpuscular Volume 94.1 fl (80-100); Mean Platelet Volume 11.8 fl (7.4-10.4); Platelet Count Result 198 k/mm3 (150-375); Red Blood Count 3.22 M/mm3 (4.6-6.20); Red Cell Distribution Width 14.4 % (11.5-14.5); White Blood Count 5.9 K/mm3 (4.5-10.0)
[2023-12-22 07:35] LABS: Anion Gap 13 mmol/L (4-12); Blood Urea Nitrogen 61 mg/dL (9-20); Calcium 9.6 mg/dL (8.4-10.2); Carbon Dioxide 22 mmol/L (22-30); Chloride 99 mmol/L (98-107); Estimated Glomerular Filt Rate 9; Glucose 107 mg/dL (65-110); Magnesium 2.2 mg/dL (1.6-2.3); Sodium 134 mmol/L (137-145)
[2023-12-22 07:46] LABS: Hepatitis B Surface Antigen Negative (Negative)
[2023-12-22] MEDS: LORazepam (*CRX) 0.5 MG TABLET PO ×2 (08:08→21:18)
[2023-12-22 08:12] LABS: Glucose Point of Care 93 mg/dl (65-105)
--- NOTE | 2023-12-22 08:16 | PM.IMPN ---
Progress Note: A&P Assessment and Plan (1) Chest pain: Code(s): R07.9 - Chest pain, unspecified Status: Acute (2) Elevated troponin: Code(s): R79.89 - Other specified abnormal findings of blood chemistry Status: Acute (3) End-stage renal disease on hemodialysis: Code(s): N18.6 - End stage renal disease; Z99.2 - Dependence on renal dialysis Status: Acute (4) Anemia in chronic kidney disease: Code(s): N18.9 - Chronic kidney disease, unspecified; D63.1 - Anemia in chronic kidney disease Status: Acute (5) Epilepsy: Code(s): G40.909 - Epilepsy, unspecified, not intractable, without status epilepticus Status: Acute (6) Hypertension: Qualifiers: Hypertension type: primary hypertension Qualified Code(s): I10 - Essential (primary) hypertension Code(s): I10 - Essential (primary) hypertension Status: Chronic (7) Type 2 diabetes mellitus: Code(s): E11.9 - Type 2 diabetes mellitus without complications Status: Chronic (8) Seizure disorder: Code(s): G40.909 - Epilepsy, unspecified, not intractable, without status epilepticus Status: Acute (9) Chronic anticoagulation: Code(s): Z79.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 Labs, imaging, EKG, and all reports were personally reviewed. Suspect his symptoms are related to volume overload as he only got 1 hour of dialysis on Thursday and he appears quite swollen. Troponins are mildly elevated but have remained flat. Echocardiogram has been ordered to rule out wall motion abnormalities or any other pathology. Pulmonary embolism seems unlikely as he is on apixaban and states that he has not missed any doses. His hemoglobin is lower than what it was last time he was here thus will check iron studies as well as stool for occult blood. Continue to monitor closely. Nephrology consulted for dialysis tomorrow. He does not have any acute electrolyte abnormalities at this time. Blood pressures were reviewed and they are stable. Initiate sliding scale insulin, Accu-Cheks, and hypoglycemic protocol. Right shoulder x-ray ordered due to pain after fall last week as detailed in the HPI. His home medications will be reviewed and resumed as appropriate. Findings and treatment plan were discussed with the patient. Questions were solicited and answered to satisfaction. 12/21 Hypertension urgency, fluid overloaded, acute heart failure, hypoxemia patient has uncontrolled hypertension, likely secondary to fluid overload . 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 labetalol 300 b.i.d. p.o., hydralazine 50 mg t.i.d. p.o. blood pressure 190/73 Start labetalol 20 mg IV push now,hydralazine IV p.r.n. continue O2 therapy to keep pulse ox above 94 Pending echocardiogram End-stage renal disease with fluid overload, chronic anemia Consult infant room teacher for dialysis Hemoglobin stable Follow-up CBC BMP Subjective Date/time seen: 12/22/23 08:16 Interval history: I saw and examined patient today, patient underwent hemodialysis today, patient feels dyspnea is improving, denies chest pain abdomen pain, palpitation, headache. Exam Narrative: GENERAL: Pleasant, in no acute distress. Well-nourished. - EYES: EOMI. Anicteric. - HENT: Moist mucous membranes. - LUNGS: crackles bilateral base, coarse breath sound bilaterally - CARDIOVASCULAR: Regular rate and rhythm. No murmur. No JVD. - ABDOMEN: Soft, non-tender and non-distended. No palpable masses. - EXTREMITIES: No edema. left below-knee amputation, right [id number] ampu
--- NOTE | 2023-12-22 08:26 | PC.NURSE ---
This patient, Clarence Morillo, was admitted to [facility] Surg Room 302-01. Patient/family oriented to hospital policies and general routines including ID bracelet, bed and alarms, visiting hours, pain management, procedures, bathroom and other care routines, personal items, smoking policy, room service/diet, and visiting hours. Information on how to activate the Rapid Response Team has been discussed. Patient/Family are encouraged to report perceived risks to care and to ask questions if they do not understand what they are told or what they should do.
[2023-12-22 08:57] LABS: Folic Acid 8.1 ng/mL (2.76->20)
[2023-12-22 09:18] LABS: Hepatitis B Surface Anti Res Indeterminate
--- NOTE | 2023-12-22 09:35 | PM.CNNEP ---
Assessment and Plan Assessment and plan (1) End stage renal disease: Code(s): N18.6 - End stage renal disease Status: Chronic Assessment and Plan: HD today continue T/T/S schedule while hosptialized follow electrolytes, volume status, and clearance (2) Shortness of breath: Code(s): R06.02 - Shortness of breath Status: Acute Assessment and Plan: presumably secondary to volume overload fluid removal with HD today follow respiratory status (3) Chest pain: Code(s): R07.9 - Chest pain, unspecified Status: Acute Assessment and Plan: possibly related to #2 and volume overload troponin trend noted no EKG changes follow-up on Echo (4) Hypertension: Qualifiers: Hypertension type: primary hypertension Qualified Code(s): I10 - Essential (primary) hypertension Code(s): I10 - Essential (primary) hypertension Status: Chronic Assessment and Plan: quite erratic in nature on multiple medications for control resume home medications follow trend of hemodynamics (5) Anemia: Code(s): D64.9 - Anemia, unspecified Status: Chronic Assessment and Plan: due to ESRD Epogen with HD iron studies noted follow trend of H/H (6) Type 2 diabetes mellitus: Code(s): E11.9 - Type 2 diabetes mellitus without complications Status: Chronic Assessment and Plan: follow accu-cheks glycemic control per hospitalists I will continue to follow the patient with you while he remains hospitalized and make further recommendations as deemed necessary. Thank you for allowing me to participate in the care of this patient. History of Present Illness Reason for Consult Consult date: 12/22/23 Reason for consult: end stage renal disease Chief Complaint Chief complaint: Chest Pain/Volume Overload History of Present Illness Narrative: The patient is a 53-year-old male with a past medical history as outlined below who presented to [facility] Emergency Room with complaints of chest pain and shortness of breath. The patient reports that his last dialysis treatment on Thursday, he only received about an hour of treatment due to issues/problems with diarrhea. Since that time, he reports increased shortness of breath and edema in association with chest tightness. He reports his symptoms seem to be similar to when he had problems/ issues with fluid/ volume overload in the past. He gives no symptoms of lightheadedness, dizziness, nausea, vomiting, diaphoresis, or cold symptoms or congestion. His only other complaint is that has some right shoulder discomfort which occurred after a recent fall. Given his complaints of shortness of breath and chest pain, his nursing facility sent him to the emergency room for further assessment. Workup and evaluation emergency room demonstrated the patient be hemodynamically stable if not slightly hypertensive with oxygen saturations of 90-100% on 2 L of supplemental oxygen. Routine blood test demonstrated labs consistent with his known history of end-stage renal disease including anemia likely of chronic kidney disease but no critical electrolyte abnormalities. His troponin was mildly elevated but no more so than has been in the past. His chest x-ray showed mild pulmonary edema and small bilateral pleural effusions and his EKG did not show any acute ischemic changes. It was felt that his symptomatology was related to his mild volume overload secondary to a partial treatment on Thursday. He was subsequently admitted to the hospital for further evaluation and therapy. Since his admission, he has still continued to field chest tightness and shortness of breath but this seems to be about the same as when he presented to the ER yesterday afternoon. Renal consultation was requested due to his end-stage renal disease. The patient normally dialyzed on a Thursday, ,
[2023-12-22] MEDS: HEPARIN SODIUM 1,000 UNITS/ML VIAL 2000 UNITS IV PUSH (10:33)
[2023-12-22] MEDS: EPOETIN ALFA-EPBX 10,000 UNITS/ML VIAL 10000 UNITS IV PUSH (10:56)
[2023-12-22 11:27] LABS: Glucose Point of Care 101 mg/dl (65-105)
[2023-12-22] MEDS: NIFEdipine 30 MG TAB.ER.24 90 MG PO (12:57)
[2023-12-22] MEDS: levETIRAcetam 250 MG TABLET 750 MG PO ×2 (12:57→21:18)
[2023-12-22] MEDS: minoxidiL 2.5 MG TABLET PO ×2 (12:58→21:18)
[2023-12-22] MEDS: ISOSORBIDE DINITRATE 20 MG TABLET PO ×2 (12:58→17:59)
[2023-12-22] MEDS: CLOPIDOGREL BISULFATE 75 MG TABLET PO (12:58)
[2023-12-22] MEDS: PANTOPRAZOLE 40 MG TABLET PO (12:58)
[2023-12-22] MEDS: hydrALAZINE HCL 50 MG TABLET PO ×2 (12:58→17:59)
[2023-12-22] MEDS: APIXABAN 5 MG TABLET BY MOUTH ×2 (12:58→21:18)
[2023-12-22] MEDS: LABETALOL HCL 100 MG TABLET 300 MG PO ×2 (13:01→17:59)
[2023-12-22 16:42] LABS: Glucose Point of Care 167 mg/dl (65-105)
[2023-12-22 17:35] LABS: MRSA (PCR) DETECTED (NOT DETECTE)
--- NOTE | 2023-12-22 17:36 | PC.NURSE ---
Call out to Provider to report MRSA results.
[2023-12-22] MEDS: CALCIUM ACETATE 667 MG TABLET PO (17:59)
[2023-12-22 20:36] LABS: Glucose Point of Care 152 mg/dl (65-105)
[2023-12-22] MEDS: DOXAZOSIN MESYLATE 2 MG TABLET PO (21:18)
[2023-12-22] MEDS: ATORVASTATIN 20 MG TABLET PO (21:18)
[2023-12-22] MEDS: traZODone HCL 50 MG TABLET PO (21:18)
[2023-12-22] MEDS: buPROPion HCL SR (12 HR) 150 MG TAB PO (21:19)
--- NOTE | 2023-12-22 23:53 | ECHO_ITS ---
Patient Info Name: Clarence Morillo Age: 53 years : 1970 Gender: Male Ht: 60 in Wt: 184 lbs BSA: 1.92 m2 HR: 89 bpm Heart Rhythm: Sinus Rhythm Technical Quality: Good Exam Date: 12/22/2023 1:47 PM Exam Location: Echo Lab Patient Status: Inpatient Admit Date: 12/21/2023 Staff Ordering Physician: Patricia Jensen PA-C Social Work Coordinator: Mulugeta Becker RDCS Attending Provider: Katerina Conner MD Referring Physician: Mikey DURAN; Exam Type: CA echo doppler color flow Study Info Indications - chest pain Complete two-dimensional, color flow and Doppler transthoracic echocardiogram is performed. Summary 1. Left ventricular chamber dimension is normal. 2. Left ventricular systolic function is normal, estimated at 65-70%. 3. There is severe concentric increased left ventricular wall thickness. 4. The left ventricular diastolic function is grade I diastolic dysfunction. 5. Right ventricular systolic function is normal. 6. Left atrial chamber dimension is mildly enlarged. 7. No significant valvular disease. 8. There is trivial posterior pericardial effusion. Left Ventricle Left ventricular chamber dimension is normal. Left ventricular systolic function is normal, estimated at 65-70%. There is severe concentric increased left ventricular wall thickness. The left ventricular diastolic function is grade I diastolic dysfunction. Right Ventricle Right ventricular chamber dimension is normal. Right ventricular systolic function is normal. Left Atria Left atrial chamber dimension is mildly enlarged. Right Atria Right atrial chamber dimension is normal. Atrial Septum Intact interatrial septum visualized by color flow imaging. Aortic Valve The aortic valve is not well visualized. There is no aortic valve stenosis. There is no aortic valve regurgitation. Pulmonic Valve The pulmonic valve is not well visualized. Mitral Valve There is trace mitral valve regurgitation. Tricuspid Valve There is trace tricuspid valve regurgitation. Pericardium/Pleural There is trivial posterior pericardial effusion. Inferior Vena Cava Normal inferior vena cava with >50% collapse upon inspiration consistent with normal right atrial pressure, 3 mmHg. Aorta The aortic root size at the sinus of Valsalva is normal. Left Ventricular Outflow Tract Name Value Normal LVOT 2D LVOT Diameter 2.1 cm LVOT Doppler LVOT Peak Gradient 9 mmHg LVOT Mean Gradient 5 mmHg LVOT VTI 26 cm LVOT VTI/AV VTI Ratio 0.9 LVOT Stroke Volume 86 ml LVOT CO 7.5 l/min LVOT CI 3.9 l/min/m2 Pulmonic Valve Name Value Normal PV Doppler PV Peak Gradient 6 mmHg Mitral Valve Name
[2023-12-23] VITALS (9 sets, daily range): BP systolic 146–173; BP diastolic 58–82; PULSE 79–86; RESP 18; TEMP 36.3; O2SAT 97–98
[2023-12-23] MEDS: hydrALAZINE HCL 20 MG/ML VIAL 10 MG IV PUSH ×2 (01:14→07:22)
--- NOTE | 2023-12-23 07:24 | PM.IMPN ---
Progress Note: A&P Assessment and Plan (1) Chest pain: Code(s): R07.9 - Chest pain, unspecified Status: Acute (2) Elevated troponin: Code(s): R79.89 - Other specified abnormal findings of blood chemistry Status: Acute (3) End-stage renal disease on hemodialysis: Code(s): N18.6 - End stage renal disease; Z99.2 - Dependence on renal dialysis Status: Acute (4) Anemia in chronic kidney disease: Code(s): N18.9 - Chronic kidney disease, unspecified; D63.1 - Anemia in chronic kidney disease Status: Acute (5) Epilepsy: Code(s): G40.909 - Epilepsy, unspecified, not intractable, without status epilepticus Status: Acute (6) Hypertension: Qualifiers: Hypertension type: primary hypertension Qualified Code(s): I10 - Essential (primary) hypertension Code(s): I10 - Essential (primary) hypertension Status: Chronic (7) Type 2 diabetes mellitus: Code(s): E11.9 - Type 2 diabetes mellitus without complications Status: Chronic (8) Seizure disorder: Code(s): G40.909 - Epilepsy, unspecified, not intractable, without status epilepticus Status: Acute (9) Chronic anticoagulation: Code(s): 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 Labs, imaging, EKG, and all reports were personally reviewed. Suspect his symptoms are related to volume overload as he only got 1 hour of dialysis on Thursday and he appears quite swollen. Troponins are mildly elevated but have remained flat. Echocardiogram has been ordered to rule out wall motion abnormalities or any other pathology. Pulmonary embolism seems unlikely as he is on apixaban and states that he has not missed any doses. His hemoglobin is lower than what it was last time he was here thus will check iron studies as well as stool for occult blood. Continue to monitor closely. Nephrology consulted for dialysis tomorrow. He does not have any acute electrolyte abnormalities at this time. Blood pressures were reviewed and they are stable. Initiate sliding scale insulin, Accu-Cheks, and hypoglycemic protocol. Right shoulder x-ray ordered due to pain after fall last week as detailed in the HPI. His home medications will be reviewed and resumed as appropriate. Findings and treatment plan were discussed with the patient. Questions were solicited and answered to satisfaction. 12/21 Hypertension urgency, fluid overloaded, acute heart failure, hypoxemia patient has uncontrolled hypertension, likely secondary to fluid overload . 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 labetalol 300 b.i.d. p.o., hydralazine 50 mg t.i.d. p.o. blood pressure 190/73 Start labetalol 20 mg IV push now,hydralazine IV p.r.n. continue O2 therapy to keep pulse ox above 94 Pending echocardiogram End-stage renal disease with fluid overload, chronic anemia Consult simulation tech for dialysis Hemoglobin stable Follow-up CBC BMP Subjective Date/time seen: 12/23/23 07:24 Interval history: 12/22: Patient doing well today. His breathing is regular and no longer dyspneic after receiving HD yesterday. Labs and vitals reviewed. He is stable to discharge back to his SNF today with HD tomorrow at his regular location. Review of Systems Review of Systems: All systems reviewed & are unremarkable except as noted in HPI and below Exam Narrative: General: well appearing, appears stated age. HEENT: normocephalic, atraumatic. Mucous membranes moist. EOMI, PERRLA, bilateral sclera anicteric, no conjunctival injection. Neck supple without JVD, lymphadenopathy, or
[2023-12-23 07:39] LABS: Glucose Point of Care 133 mg/dl (65-105)
[2023-12-23] MEDS: LABETALOL HCL 100 MG TABLET 300 MG PO ×2 (08:20→17:06)
[2023-12-23] MEDS: levETIRAcetam 250 MG TABLET 750 MG PO (08:21)
[2023-12-23] MEDS: NIFEdipine 30 MG TAB.ER.24 90 MG PO (08:21)
[2023-12-23] MEDS: minoxidiL 2.5 MG TABLET PO (08:21)
[2023-12-23] MEDS: CLOPIDOGREL BISULFATE 75 MG TABLET PO (08:21)
[2023-12-23] MEDS: calcitrioL 0.25 MCG CAPSULE PO (08:21)
[2023-12-23] MEDS: CALCIUM ACETATE 667 MG TABLET PO ×3 (08:21→17:06)
[2023-12-23] MEDS: LOSARTAN POTASSIUM 100 MG TABLET PO (08:21)
[2023-12-23] MEDS: hydrALAZINE HCL 50 MG TABLET PO ×3 (08:21→17:06)
[2023-12-23] MEDS: PANTOPRAZOLE 40 MG TABLET PO (08:21)
[2023-12-23] MEDS: APIXABAN 5 MG TABLET BY MOUTH (08:21)
[2023-12-23] MEDS: ISOSORBIDE DINITRATE 20 MG TABLET PO ×3 (08:21→17:06)
[2023-12-23] MEDS: buPROPion HCL SR (12 HR) 150 MG TAB PO (08:21)
[2023-12-23 12:49] LABS: Glucose Point of Care 170 mg/dl (65-105)
--- NOTE | 2023-12-23 13:13 | PM.PNNEP ---
Progress Note: A&P Assessment and Plan (1) End stage renal disease: Code(s): N18.6 - End stage renal disease Status: Chronic Assessment and Plan: HD tomorrow continue T/T/S schedule while hosptialized follow electrolytes, volume status, and clearance (2) Shortness of breath: Code(s): R06.02 - Shortness of breath Status: Acute Assessment and Plan: presumably secondary to volume overload fluid removal with HD today follow respiratory status (3) Chest pain: Code(s): R07.9 - Chest pain, unspecified Status: Acute Assessment and Plan: possibly related to #2 and volume overload troponin trend noted no EKG changes Echo results reviewed (4) Hypertension: Qualifiers: Hypertension type: primary hypertension Qualified Code(s): I10 - Essential (primary) hypertension Code(s): I10 - Essential (primary) hypertension Status: Chronic Assessment and Plan: quite erratic in nature on multiple medications for control resumed on home medications follow trend of hemodynamics (5) Anemia: Code(s): D64.9 - Anemia, unspecified Status: Chronic Assessment and Plan: due to ESRD Epogen with HD iron studies noted follow trend of H/H (6) Type 2 diabetes mellitus: Code(s): E11.9 - Type 2 diabetes mellitus without complications Status: Chronic Assessment and Plan: follow accu-cheks glycemic control per hospitalists Will continue to follow. Subjective Date/time seen: 12/23/23 13:13 Interval history: Follow-up for end stage renal disease on hemodialysis. Tolerated dialysis treatment yesterday with 4L fluid removal; breathing seems to be doing better at this time; BP control fluctuating but seems more stable since initiation of home medications; no other issues/events overnight or earlier this morning. Exam Narrative: General: WD/WN male in NAD Heart: normal S1 and S2; no rub Lungs: clear bilaterally Abdomen: Bowel sounds positive nontender Extremities: no cyanosis or clubbing; trace edema; s/p L BKA and R AKA Skin: warm and dry Objective Data Vital Signs Vital Signs: Vital Signs Temp Pulse Resp BP Pulse Ox O2 Del Method 12/23/23 13:05 97.3 F L 79 18 146/58 H 98 12/23/23 12:00 82 12/23/23 08:00 81 12/23/23 08:00 Room Air 12/23/23 08:20 80 12/23/23 04:00 79 12/23/23 00:00 86 12/22/23 20:00 84 12/23/23 06:00 97.3 F L 80 18 173/68 H 97 12/22/23 20:00 Room Air 12/23/23 00:54 160/82 H 12/22/23 20:39 97.7 F 85 14 175/64 H 96 Intake/Output Intake/Output: Intake & Output 12/20/23 12/21/23 12/22/23 12/23/23 23:59 23:59 23:59 23:59 Intake Total 702 1562 Output Total 4000 Balance -3298 1562 Meds/Results Medications: Active Medications Generic Name Dose Route Start Last Admin Trade Name Freq PRN Reason Stop Dose Admin Acetaminophen 325 mg 12/22/23 02:04 Acetaminophen 325 Mg Tablet PO Q4H PRN Pain (Scale Score 1-3) Apixaban 5 mg 12/22/23 09:00 12/23/23 08:21 Apixaban 5 Mg Tablet BY MOUTH 5 mg Q12HR AZALEA Administration Atorvastatin Calcium 20 mg 12/22/23 21:00 12/22/23 21:18 Atorvastatin 20 Mg Tablet PO 20 mg HS AZALEA Administration Bupropion HCl 150 mg 12/22/23 09:00 12/23/23 08:21 Bupropion Hcl Sr (12 Hr) 150 Mg Tab PO 150 mg Q12HR AZALEA Administration Calcitriol 0.25 mcg 12/23/23 09:00 12/23/23 08:21 Calcitriol 0.25 Mcg Capsule PO 0.25 mcg [id number] AZALEA Administration Calcium Acetate 667 mg 12/22/23 08:00 12/23/23 17:06 Calcium Acetate 667 Mg Tablet PO 667 mg TIDWM AZALEA Administration Clonidine HCl 0.2 mg 12/22/23 02:04 12/22/23 11:08 Clonidine Hcl 0.2 Mg Tablet PO 0.2 mg TID PRN Administration Hypertension Clopidogrel Bisulfate 75 mg 12/22/23 09:
--- NOTE | 2023-12-23 13:13 | P.PNNP_ITS ---
Progress Note: A&P Assessment and Plan (1) End stage renal disease: Code(s): N18.6 - End stage renal disease Status: Chronic Assessment and Plan: * HD tomorrow * continue T/T/S schedule while hosptialized * follow electrolytes, volume status, and clearance (2) Shortness of breath: Code(s): R06.02 - Shortness of breath Status: Acute Assessment and Plan: * presumably secondary to volume overload * fluid removal with HD today * follow respiratory status (3) Chest pain: Code(s): R07.9 - Chest pain, unspecified Status: Acute Assessment and Plan: * possibly related to #2 and volume overload * troponin trend noted * no EKG changes * Echo results reviewed (4) Hypertension: Qualifiers: Hypertension type: primary hypertension Qualified Code(s): I10 - Essential (primary) hypertension Code(s): I10 - Essential (primary) hypertension Status: Chronic Assessment and Plan: * quite erratic in nature * on multiple medications for control * resumed on home medications * follow trend of hemodynamics (5) Anemia: Code(s): D64.9 - Anemia, unspecified Status: Chronic Assessment and Plan: * due to ESRD * Epogen with HD * iron studies noted * follow trend of H/H (6) Type 2 diabetes mellitus: Code(s): E11.9 - Type 2 diabetes mellitus without complications Status: Chronic Assessment and Plan: * follow accu-cheks * glycemic control per hospitalists Will continue to follow. Subjective Date/time seen: 12/23/23 13:13 Interval history: Follow-up for end stage renal disease on hemodialysis. Tolerated dialysis treatment yesterday with 4L fluid removal; breathing seems to be doing better at this time; BP control fluctuating but seems more stable since initiation of home medications; no other issues/events overnight or earlier this morning. Exam Narrative: General: WD/WN male in NAD Heart: normal S1 and S2; no rub Lungs: clear bilaterally Abdomen: Bowel sounds positive nontender Extremities: no cyanosis or clubbing; trace edema; s/p L BKA and R AKA Skin: warm and dry Objective Data Vital Signs Vital Signs: Vital Signs Temp Pulse Resp BP Pulse Ox O2 Del Method 12/23/23 13:05 97.3 F L 79 18 146/58 H 98 12/23/23 12:00 82 12/23/23 08:00 81 12/23/23 08:00 Room Air 12/23/23 08:20 80 12/23/23 04:00 79 12/23/23 00:00 86 12/22/23 20:00 84 12/23/23 06:00 97.3 F L 80 18 173/68 H 97 12/22/23 20:00 Room Air 12/23/23 00:54 160/82 H 12/22/23 20:39 97.7 F 85 14 175/64 H 96 Intake/Output Intake/Output: Intake & Output 12/20/23 12/21/23 12/22/23 12/23/23 23:59 23:59 23:59 23:59 Intake Total 702 1562 Output Total 4000 Balance -8214 1562 Meds/Results Medications: Active Medications Generic Name Dose Route Start Last Admin Trade Name Freq PRN Reason Stop Dose Admin Acetaminophen 325 mg 12/22/23 02:04 Acetaminophen 325 Mg Tablet PO Q4H PRN
[2023-12-23 16:38] LABS: Eosinophils Absolute Auto 0.1 K/mm3 (0-0.3); Eosinophils Percent Auto 2.5 % (0-4.4); Hematocrit 25.8 % (42.0-52.0); Immature Granulocyte Absolute 0.01 K/mm3 (0.00-0.031); Immature Granulocyte Percent A 0.2 % (0-0.5); Lymphocytes Absolute Auto 0.76 K/mm3 (0.9-3.2); Lymphocytes Percent Auto 18.9 % (18.3-44.2); Mean Corpuscular Hemoglobin 28.4 pg (26-34); Mean Corpuscular Volume 91.5 fl (80-100); Mean Platelet Volume 11.9 fl (7.4-10.4); Monocytes Absolute Auto 0.5 K/mm3 (0.1-0.6); Monocytes Percent Auto 12.9 % (2.6-8.5); Neutrophils Absolute Auto 2.6 K/mm3 (1.3-6.7); Neutrophils Percent Auto 64.5 % (45.5-73.1); Platelet Count Result 202 k/mm3 (150-375); Red Blood Count 2.82 M/mm3 (4.6-6.20); Red Cell Distribution Width 14.8 % (11.5-14.5)
[2023-12-23 16:41] LABS: Glucose Point of Care 209 mg/dl (65-105)
[2023-12-23 16:56] LABS: Alanine Aminotransferase 38 U/L (6-50); Albumin Level 3.6 g/dL (3.5-5.1); Alkaline Phosphatase 76 U/L (38-126); Anion Gap 8 mmol/L (4-12); Aspartate Amino Transferase 28 U/L (17-59); Bilirubin,Total 0.7 mg/dL (0.2-1.3); Blood Urea Nitrogen 44 mg/dL (9-20); Calcium 9.3 mg/dL (8.4-10.2); Carbon Dioxide 26 mmol/L (22-30); Chloride 102 mmol/L (98-107); Estimated Glomerular Filt Rate 13; Glucose 132 mg/dL (65-110); Potassium 4.5 mmol/L (3.4-5.0); Sodium 136 mmol/L (137-145)
[2023-12-23] MEDS: INSULIN ASPART (*BKC) 100 UNITS/ML SUB-Q (17:08)
--- NOTE | 2023-12-23 21:11 | PM.DS ---
DS: Admitting Diagnosis Discharge Date 12/23/23 Admitting Diagnosis SOB DS: Discharge Diagnosis Discharge Diagnosis (1) Chest pain: Code(s): R07.9 - Chest pain, unspecified Status: Acute (2) Elevated troponin: Code(s): R79.89 - Other specified abnormal findings of blood chemistry Status: Acute (3) End-stage renal disease on hemodialysis: Code(s): N18.6 - End stage renal disease; Z99.2 - Dependence on renal dialysis Status: Acute (4) Anemia in chronic kidney disease: Code(s): N18.9 - Chronic kidney disease, unspecified; D63.1 - Anemia in chronic kidney disease Status: Acute (5) Epilepsy: Code(s): G40.909 - Epilepsy, unspecified, not intractable, without status epilepticus Status: Acute (6) Hypertension: Qualifiers: Hypertension type: primary hypertension Qualified Code(s): I10 - Essential (primary) hypertension Code(s): I10 - Essential (primary) hypertension Status: Chronic (7) Type 2 diabetes mellitus: Code(s): E11.9 - Type 2 diabetes mellitus without complications Status: Chronic (8) Seizure disorder: Code(s): G40.909 - Epilepsy, unspecified, not intractable, without status epilepticus Status: Acute (9) Chronic anticoagulation: Code(s): Z79.01 - watermaster (current) use of anticoagulants Status: Acute (10) Right shoulder pain: Code(s): M25.511 - Pain in right shoulder Status: Acute Plan The patient presented to the emergency department for evaluation of chest pain and shortness of breath as detailed in HPI. Labs, imaging, EKG, and all reports were personally reviewed. Suspect his symptoms are related to volume overload as he only got 1 hour of dialysis on Thursday and he appears quite swollen. Troponins are mildly elevated but have remained flat. Echocardiogram has been ordered to rule out wall motion abnormalities or any other pathology. Pulmonary embolism seems unlikely as he is on apixaban and states that he has not missed any doses. His hemoglobin is lower than what it was last time he was here thus will check iron studies as well as stool for occult blood. Continue to monitor closely. Nephrology consulted for dialysis tomorrow. He does not have any acute electrolyte abnormalities at this time. Blood pressures were reviewed and they are stable. Initiate sliding scale insulin, Accu-Cheks, and hypoglycemic protocol. Right shoulder x-ray ordered due to pain after fall last week as detailed in the HPI. His home medications will be reviewed and resumed as appropriate. Findings and treatment plan were discussed with the patient. Questions were solicited and answered to satisfaction. 12/21 Hypertension urgency, fluid overloaded, acute heart failure, hypoxemia patient has uncontrolled hypertension, likely secondary to fluid overload . Patient missed dialysis on Thursday [employer] on board, patient needed dialysis continue current medication: losartan 100 mg daily p.o., nifedipine 90 mg daily p.o. labetalol 300 b.i.d. p.o., hydralazine 50 mg t.i.d. p.o. blood pressure 190/73 Start labetalol 20 mg IV push now,hydralazine IV p.r.n. 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 He presented with shortness of breath and HTN. He received HD yesterday with resolution of his symptoms. Blood pressure controlled on home regimen. Patient was discharged in stable condition back to his SNF with HD scheduled for 12/23 at his normal location. Time Spent with Patient Time attestation: Total time spent prov
== END 2023-12-23 20:02 ==
LOC: ANHED 16:22 → ANHIMU 18:54 → ANH3MEDSUR 12-22 07:26
PROVIDERS: Hospitalist; Internal Medicine Nephrology; Nurse Practitioner Acute Care; Physician Assistant; Admitting Provider General Practice; Emergency Provider Emergency Medicine; PCP Internal Medicine; Visit Provider General Practice
DX: R07.9 Chest pain, unspecified (principal); E87.70 Fluid overload, unspecified; R79.89 Other specified abnormal findings of blood chemistry; R09.02 Hypoxemia; R06.02 Shortness of breath; M25.511 Pain in right shoulder; I12.0 Hypertensive chronic kidney disease with stage 5 chronic kidney disease or end stage renal disease; E11.22 Type 2 diabetes mellitus with diabetic chronic kidney disease; N18.6 End stage renal disease; Z99.2 Dependence on renal dialysis; D63.1 Anemia in chronic kidney disease; G40.909 Epilepsy, unspecified, not intractable, without status epilepticus; E11.51 Type 2 diabetes mellitus with diabetic peripheral angiopathy without gangrene; E78.5 Hyperlipidemia, unspecified; K21.9 Gastro-esophageal reflux disease without esophagitis; F32.A Depression, unspecified; Z79.02 Long term (current) use of antithrombotics/antiplatelets; Z86.73 Personal history of transient ischemic attack (TIA), and cerebral infarction without residual deficits; Z79.01 Long term (current) use of anticoagulants
CPT/HCPCS: 36415; 71046; 73030; 73200; 80048; 80053; 82607; 82728; 82746; 82948; 83540; 83550; 83690; 83735; 84484; 85025; 85027; 85610; 85730; 86706; 87340; 87641; 93005; 93306; 96374; 96375; 99285; A9270; G0257; G0378; G0379; J0360; J1644; J1815; J7030; Q5105

== ENCOUNTER → 2023-12-29 11:01 | Emergency (ER) | payer OTHER, SELFPAY ==
--- NOTE | ~2023-12-29 | XR_ITS ---
XR shoulder LT min 2V DATE: 12/29/2023 11:57 INDICATION: Fall, injury. Bilateral shoulder pain, left worse than right TECHNIQUE: 4 views COMPARISON: None FINDINGS: There is osteopenia. There is severe glenohumeral osteoarthritis. There is a transverse lucency overlying the humeral head. Humeral head fracture is not definitively e xcluded. Consider additional radiographs or CT shoulder examination for more definitive evaluation. There is normal alignment of the acromioclavicular and glenohumeral joints. Vascular graft overlies the proximal upper arm. Right internal jugular central venous catheter. IMPRESSION: Linear lucency overlying humeral head; consider additional radiographs or CT for further evaluation to exclude humeral head fracture Severe glenohumeral osteoarthritis Osteopenia Reviewed, dictated and finalized at location [facility]. IMPRESSION: Linear lucency overlying humeral head; consider additional radiogra phs or CT for further evaluation to exclude humeral head fracture Severe glenohumeral osteoarthritis Osteopenia
--- NOTE | ~2023-12-29 | XR_ITS ---
XR shoulder RT min 2V DATE: 12/29/2023 11:57 INDICATION: Fall. Injury. Bilateral shoulder pain TECHNIQUE: 4 views COMPARISON: None FINDINGS: There is an apparent recent fracture of the acromion process of the scapula with minimal di splacement. Normal alignment at the acromioclavicular glenohumeral joints. Osteopenia. Right internal jugular central venous catheter IMPRESSION: Scapular acromion process fracture Osteopenia Reviewed, dictated and finalized at location B.
--- NOTE | ~2023-12-29 | CT_ITS ---
EXAMINATION: CT brain wo con DATE: 12/29/2023 11:45 INDICATION: Head injury. TECHNIQUE: Computed tomography (CT) of the head was performed without intravenous contrast. The mA wa s adjusted according to patient size. Iterative reconstruction technique was employed. The dose-lengt h product was 756.67 mGy-cm. COMPARISON: Head CT 11/24/2023 FINDINGS: There is an old infarct in the right frontal lobe. There are scattered areas of low attenua tion in the cerebral white matter. There is no intracranial hemorrhage, acute infarction, or abnormal intracranial mass lesion. The ventricles are normal in size. Partially visualized is an infiltrating subcutaneous mass in the posterior head and neck. There are multiple sebaceous cysts in the head and neck. IMPRESSION: 1. 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 2. Moderate nonspecific cerebral white matter disease, which likely represents chronic small vessel i schemic disease. 3. Partially visualized subcutaneous mass in the posterior head and neck, most likely inflammation or scarring. Reviewed, dictated and finalized at location A. IMPRESSION: 1. 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 2. Moderate nonspecific cerebral white matter disease, which likely represents chronic small vessel ischemic disease. 3. Partially visualized subcutaneous mass in the posterior head and neck, most likely inflammation or scarring.
--- NOTE | ~2023-12-29 | CT_ITS ---
EXAMINATION: CT shoulder LT wo con DATE: 12/29/2023 12:32 INDICATION: Left shoulder injury, pain TECHNIQUE: Computed tomography (CT) of the head was performed without intravenous contrast. The mA wa s adjusted according to patient size. Iterative reconstruction technique was employed. Exam dose: 53 7.43 mGy-cm total exam DLP. COMPARISON: 01/02/2024 left shoulder FINDINGS: There is severe joint space and prominent degenerative spurring at the left glenohumeral christopher int. There is normal alignment at the left glenohumeral and acromioclavicular joints. No recent fract ure or dislocation of the left shoulder is detected. Mild left pleural effusion. Mild infiltrate and/or atelectasis at the left upper and lower lobes. Coronary artery calcifications. IMPRESSION: Severe left glenohumeral osteoarthritis No fracture or dislocation of left shoulder Reviewed, dictated and finalized at Location [facility]. Reviewed, dictated and finalized at location B.
[2023-12-29 11:05] VITALS: BP 154/64; PULSE 75; RESP 16; TEMP 36.9; O2SAT 97
--- NOTE | 2023-12-29 11:11 | ED.FALL ---
HPI - Fall General Chief Complaint: Fall Stated Complaint: B/L shoulder pain s/p fall last noc Time Seen by Provider: 12/29/23 11:08 History of Present Illness HPI Narrative: Patient was bilateral lower extremity amputee presents here after he was trying to roll off of the bed pa, lost his balance and fell to the ground, landing on his left shoulder and head. No loss of consciousness. He has pain to his left shoulder, he also has pain to his right shoulder after a fall 2 weeks ago Related Data Home Medications Medication Instructions Recorded Confirmed acetaminophen 325 mg tablet 325 mg PO Q4H PRN Pain (Scale 01/24/23 12/22/23 Score 1-3) atorvastatin 20 mg tablet (Lipitor) 20 mg PO HS 01/24/23 12/22/23 calcium acetate(phosphat bind) 667 667 mg PO TID 01/24/23 12/22/23 mg capsule clonidine HCl 0.2 mg tablet 0.2 mg PO TID PRN Hypertension 01/24/23 12/22/23 clopidogrel 75 mg tablet 75 mg PO DAILY 01/24/23 12/22/23 doxazosin 2 mg tablet 2 mg PO HS 01/24/23 12/22/23 hydralazine 50 mg tablet 50 mg PO TID 01/24/23 12/22/23 isosorbide dinitrate 20 mg tablet 20 mg PO TID 01/24/23 12/22/23 losartan 100 mg tablet 100 mg PO DAILY 01/24/23 12/22/23 minoxidil 2.5 mg tablet 2.5 mg PO Q12H 01/24/23 12/22/23 nitroglycerin 0.4 mg sublingual 0.4 mg sublingual Q5MIN PRN Chest 01/24/23 12/22/23 tablet Pain ondansetron HCl 4 mg tablet 4 mg PO Q6H PRN Nausea And Vomiting 01/24/23 12/22/23 pantoprazole 40 mg tablet,delayed 40 mg PO DAILY 01/24/23 12/22/23 release polyethylene glycol 3350 17 17 g PO DAILY PRN Constipation 01/24/23 12/22/23 gram/dose oral powder (Miralax) bupropion HCl 150 mg tablet,12 hr 150 mg PO BID 11/24/23 12/22/23 sustained-release calcitriol 0.25 mcg capsule 0.25 mcg PO 3XW 11/24/23 12/22/23 labetalol 300 mg tablet 300 mg PO BID 11/24/23 12/22/23 lorazepam 0.5 mg tablet 0.5 mg PO BID PRN Anxiety 11/24/23 12/22/23 nifedipine 90 mg tablet,extended 90 mg PO DAILY 11/24/23 12/22/23 release trazodone 50 mg tablet 50 mg PO HS 11/24/23 12/22/23 Allergies Allergy/AdvReac Type Severity Reaction Status Date / Time No Known Allergies Allergy Verified 12/29/23 11:12 Review of Systems Review of Systems: All systems reviewed & are unremarkable except as noted in HPI and below PMFSH Past Medical History Medical History Anemia in chronic kidney disease Cerebrovascular accident Chronic anticoagulation Depression End-stage renal disease on hemodialysis Epilepsy Gastroesophageal reflux disease Hyperlipidemia Hypertension Peripheral vascular disease Seizure disorder Type 2 diabetes mellitus Surgical History Surgical History History of left below knee amputation History of right above knee amputation Family History Family History Other Unknown family medical history Social History Social History Social History: Surrogate medical decision maker: Landy Becerra, spouse. Code status: Full code. Smoking status: Never smoker Alcohol intake: never Substance use: never Do You Feel Safe in your Home?: No Lack of Transportation: No Lack of Food: Never True Current Housing: I Have Housing Concerned About Future Housing: No Difficulty Paying Gas/Electric Bills: No Difficulty Paying for Meds: No Currently Unemployed: No Education: Decline to Answer Difficulty w/ Childcare or Family Care: No Additional living arrangements comments: Resident at [facility]. Sexual Orientation (if Verbalized by the Patient): Straight or Heterosexual Spiritual care concerns: No Exam Narrative: EXAMINATION OF ORGAN SYSTEMS/BODY AREAS: Constitutional: Vital signs per nursing GENERAL:[No acute distress, non-toxic appearing.] HEAD: Normal with no
--- NOTE | 2023-12-29 11:16 | PC.NURSE ---
Pt right AKA, right BKA. EMS reported pt did complete his dialysis treatment.
[2023-12-29 11:30] VITALS: BP 151/67; PULSE 74; RESP 16; O2SAT 96
[2023-12-29 13:30] VITALS: BP 134/93; PULSE 75; RESP 16; TEMP 36.4; O2SAT 96
[2023-12-29 14:38] VITALS: BP 162/82; PULSE 76; RESP 16; O2SAT 97
== END ==
PROVIDERS: Emergency Provider Emergency Medicine; PCP Internal Medicine
DX: S49.92XA Unspecified injury of left shoulder and upper arm, initial encounter (principal); S42.121A Displaced fracture of acromial process, right shoulder, initial encounter for closed fracture; E11.22 Type 2 diabetes mellitus with diabetic chronic kidney disease; I12.0 Hypertensive chronic kidney disease with stage 5 chronic kidney disease or end stage renal disease; N18.6 End stage renal disease; D63.1 Anemia in chronic kidney disease; Z99.2 Dependence on renal dialysis; G40.909 Epilepsy, unspecified, not intractable, without status epilepticus; E11.51 Type 2 diabetes mellitus with diabetic peripheral angiopathy without gangrene; I73.9 Peripheral vascular disease, unspecified; E78.5 Hyperlipidemia, unspecified; K21.9 Gastro-esophageal reflux disease without esophagitis; Z86.73 Personal history of transient ischemic attack (TIA), and cerebral infarction without residual deficits; Z89.512 Acquired absence of left leg below knee; Z89.611 Acquired absence of right leg above knee; Z79.01 Long term (current) use of anticoagulants; M85.812 Other specified disorders of bone density and structure, left shoulder; M85.811 Other specified disorders of bone density and structure, right shoulder; M19.012 Primary osteoarthritis, left shoulder; W06.XXXA Fall from bed, initial encounter; W19.XXXA Unspecified fall, initial encounter
CPT/HCPCS: 70450; 73030; 73200; 99284